=== PATIENT | female | born 1955 | race Caucasian/White ===

== ENCOUNTER → 2016-08-01 | Outpatient (CLI) | payer MEDICARE ==
[~2016-08-01] MED LIST: ASPI-914 PO; ATOR40TA64 PO; GABA-218 PO; HYDR-4074 PO; INSU100I3 SQ; INSU300I SQ; LEVO500T63 PO; LOSA1TAB95 PO; NITR100C4 PO; PANT40TA PO; PRED10TA PO; SERT-88 PO; SUCR1TAB PO; [UNRECOGNIZED DRUG - CODE] PO
[2016-08-01 14:55] LABS: BLOOD, URINE NEGATIVE (NEGATIVE); COLOR,URINE YELLOW (YELLOW); LEUKOCYTE ESTERASE ,URINE NEGATIVE (NEGATIVE); NITRITE,URINE NEGATIVE (NEGATIVE); UROBILINOGEN,URINE 0.2 EU/DL (NORMAL)
[2016-08-01 15:19] LABS: BACTERIA,URINE TRACE (NEGATIVE); RBC,URINE 0-1 /HPF (0-3)
== END ==
LOC: LABN.NHH 14:45
PROVIDERS: ATTEND Family Medicine
DX: N39.0 Urinary tract infection, site not specified (principal)
CPT/HCPCS: 81001

== ENCOUNTER → 2016-08-02 | Outpatient (CLI) | payer MEDICARE ==
[2016-08-02 15:25] LABS: BASOPHILS % (AUTO) 0.2 % (0-2); HCT - HEMATOCRIT 38.1 % (36-46); HGB - HEMOGLOBIN 12.2 GM/DL (12-16); IMMATURE GRANULOCYTE # (AUTO) 0.06 T/MM3 (0.00-0.03); LYMPHOCYTES # (AUTO) 0.5 T/MM3 (1-4.8); LYMPHOCYTES % (AUTO) 9.1 % (23-45); MEAN CORPUSCULAR HGB 28.3 UUG (26-34); MEAN CORPUSCULAR VOLUME 88.4 UM3 (80-100); MEAN PLATELET VOLUME 9.2 UM3 (9.4-12.4); MONOCYTES # (AUTO) 0.3 T/MM3 (0-0.8); MONOCYTES % (AUTO) 5.1 % (0-9.0); NEUTROPHILS % (AUTO) 84.6 % (33-66); RED BLOOD COUNT 4.31 M/MM3 (4.00-5.20); WBC - WHITE BLOOD COUNT 5.9 T/MM3 (4.5-11.0)
[2016-08-02 15:33] LABS: ALBUMIN 3.6 G/DL (3.5-5.0); ALBUMIN/GLOBULIN RATIO 1.3 RATIO (1.1-2.2); ALKALINE PHOSPHATASE 73 U/L (38-126); ALT (SGPT) 80 U/L (9-52); ANION GAP 9 MEQ/L (5-15); AST (SGOT) 101 U/L (14-36); BUN/CREATININE RATIO 25 RATIO (6-26); CALCIUM 9.5 MG/DL (8.4-10.2); CHLORIDE 101 MEQ/L (98-107); CO2 - CARBON DIOXIDE 30 MEQ/L (22-30); CREATININE 0.6 MG/DL (0.7-1.2); GLOMERULAR FILTRATION RATE 102; GLUCOSE 142 MG/DL (65-110); POTASSIUM 3.6 MEQ/L (3.6-5); SODIUM 140 MEQ/L (134-144); TOTAL PROTEIN 6.3 G/DL (6.3-8.2)
== END ==
LOC: LABN.NHH 15:18
PROVIDERS: ATTEND Family Medicine
DX: A41.51 Sepsis due to Escherichia coli [E. coli] (principal)
CPT/HCPCS: 80053; 85025

== ENCOUNTER 2016-08-22 11:55 | Emergency (ER) | payer MEDICARE ==
[~2016-08-22] VITALS: Ht 160 cm; Wt 86.3 kg
--- OUTSIDE RECORDS SUMMARY | 2016-08-22 12:00 | XMS REPORT | Continuity of Care Document ---
Author Author [facility] Organization [facility] Address Unknown Phone Unavailable Support Name Relationship Address Phone KAJAL SANTIAGO MD Caregiver [facility] [address] [place] [address] Unavailable IRINA BORGES II, MD Caregiver [address] [place] [phone] JASWINDER ESCOBEDO MD Caregiver [address] [place] [phone] LYNDA MERCADO Next Of Kin [address] [id number] Insurance Providers Payer Name Policy Number Subscriber Name Relationship Medicare [id number] Jose Alejandro Mercado 19 Self Advance Directives Directive Response Recorded Date/Time Ordered Resuscitation Status Full Code 05/28/14 11:21am Resuscitation Documents on File No 05/28/14 12:11pm Chief Complaint and Reason for Visit Chief Complaint INFLUENZA B, DEHYDRATION, HYPOXEMIA Reason for Visit Influenza B Addisons disease Hypoxemia Dehydration Chest pain Diabetes Hypertension Problems Medical Problems Problem Onset Date Status Knee pain Unknown Active Abrasion of knee Unknown Active Knee pain Unknown Active Influenza B Unknown Active Addisons disease Unknown Active Hypoxemia Unknown Active Dehydration Unknown Active Chest pain Unknown Active Diabetes Unknown Active Hypertension Unknown Active Medications Medication Dose Route Sig Days/Qty Instructions Order Date Discontinued Date Status Insulin Aspart 20-24 Unit SQ BEFORE MEALS 09/21/11 Active Valsartan 320 Mg PO DAILY 09/21/11 11/11/12 Discontinued Hydrochlorothiazide 6.25 Mg PO DAILY 09/21/11 05/21/12 Discontinued Sertraline Hcl 100 Mg PO DAILY 09/21/11 Active Gabapentin 100 Mg PO THREE TIMES A DAY 09/21/11 Active Acetaminophen/Codeine Phosphate PRN 05/09/12 11/11/12 Discontinued Hydrochlorothiazide 12.5 Mg PO DAILY 05/21/12 11/11/12 Discontinued Prednisone 15 Mg PO DAILY 11/11/12 11/11/12 Discontinued Acetaminophen with Codeine 1 Tab PO EVERY 4 HOURS PRN PAIN 05/28/14 Active Losartan/Hydrochlorothiazide DAILY 05/28/14 Active Alprazolam PRN ANXIETY/AIRHUNGER/AGITATION 05/28/14 Active [Atrovastatin] 40 Mg BEDTIME 05/28/14 Active Prednisone 20 Mg PO GIVE WITH BREAKFAST Take 1 tablet, by mouth, once a day with breakfast. 05/28/14 Active Sulfamethoxazole/Trimethoprim 1 Tab PO TWICE A DAY 5 Days 06/04/14 Active Social History Social History Problem Response Recorded Date/Time Chewing Tobacco Status No 08/21/2013 3:22pm Hx Substance Use No 05/28/2014 9:07am Hx Alcohol Use No 05/28/2014 9:07am Has the pt used tobacco in the last 12 months No 05/28/2014 12:13pm Tobacco Usage none 06/03/2014 3:34pm Query Response Start Date Stop Date Smoking Status Former smoker Hospital Discharge Instructions Instructions: Care Instructions: Reason for Hospitalization: INFLUENZA B, DEHYDRATION I was in the hospital because (patient own words): "TEMPERATURE, VOMITING, SINUS INFECTION, MY ADRENAL GLAND IS OFF." Discharge Diet: 2000 calorie diabetic diet Discharge Activity: As tolerated; take it easy and avoid excessive cold exposure for one week Follow Up Appointments: F/U with Dr. Borges in 1-2 weeks F/U with Dr. Oneill in 3-4 weeks Condition at time of discharge: Good Fair Good Notify Physician If: You have increased discomfort at incision site. Redness Hot or hardened area Temperature over 101 degress Fahrenheit Increased or foul smelling drainage Chills IF BLEEDING, PAIN OR PROGRESSIVE SWELLING OCCURS TO THE SITE, APPLY PRESSURE AND CALL 911. Condition at time of discharge: Fair Condition at time of discharge: Good Plan of Care Discharge Date 06/04/14 1:00pm Disposition 01 DISCHARGED HOME, SELF-CARE Instructions/Education Provided DI for Influenza -- Adult Prescriptions See Medications Section Functional Status Query Response Date Recorded Physical Hygiene Self June 04, 2014 12:26pm Disabilities None June 04, 2014 12:26pm Devices Used None June 04, 2014 12:26pm Dressing Self June 04, 2014 12:26pm Ambulation Self June 04, 2014 12:26pm Diet Self June 04, 2014 12:26pm Mental Status Alert Oriented June 04, 2014 12:26pm Disabilities None June 04, 2014 12:26pm Devices Used None June 04, 2014 12:26pm Physical Hygiene Self June 04, 2014 12:26pm Dressing Self June 04, 2014 12:26pm Ambulation Self June 04, 2014 12:26pm Diet Self June 04, 2014 12:26pm Allergies, Adverse Reactions, Alerts Allergen Type Severity Reaction Status Last Updated meperidine HCl Allergy Severe Active 08/21/13 amoxicillin trihydrate Allergy Severe Active 08/21/13 potassium clavulanate Allergy Severe Active 08/21/13 Cephalexin Allergy Intermediate RASH Active 05/28/14 Immunizations Name Given Type Hx Influenza Vaccination No Historical Hx Pneumococcal Vaccination No Historical Hx Tetanus, Diptheria, Pertussis No Historical Hx Influenza Vaccination No Historical Hx Tetanus Diptheria No Historical Hx Tetanus, Diptheria, Pertussis No Historical Hx Tetanus Toxoid Vaccination No Historical Vital Signs Acute Vital Signs Vital Response Date/Time Temperature (Fahrenheit) 97.9 deg F (96.8 - 99.1) Temperature (Calculated Celsius) 36.62644 degrees C (36.0 - 37.3) Temperature Source Temporal Pulse Rate (adult) 77 bpm (60 - 100) Respiratory Rate 16 breaths/min (10 - 20) O2 Sat by Pulse Oximetry 94 % (90 - 100) Oxygen Delivery Method Room Air Blood Pressure 135/70 mm Hg Blood Pressure Source Automatic Cuff Height 5 ft 3 in Weight 254 lb Body Mass Index 45.0 kg/m^2 Results Test Source Date Result Interp. Ref. Range Comments Alanine Aminotransferase (ALT/SGPT) June 03, 2014 4:13am 44 U/L N 9- 52 Albumin June 03, 2014 4:13am 4.1 G/DL N 3.5-5.0 Albumin/Globulin Ratio June 03, 2014 4:13am 1.3 RATIO N 1.1-2.2 Alkaline Phosphatase June 03, 2014 4:13am 86 U/L N 38-126 Amylase Level September 21, 2011 9:00pm 54 U/L N 30-110 Anion Gap June 04, 2014 4:49am 6 MEQ/L N 5-15 Aspartate Amino Transf (AST/SGOT) June 03, 2014 4:13am 41 U/L H 14- 36 BUN/Creatinine Ratio June 04, 2014 4:49am 25 RATIO N 6-26 Band Neutrophils # September 21, 2011 9:00pm 0.4 T/MM3 - Band Neutrophils % September 21, 2011 9:00pm 6.0 % N 0-6 Basophils # (Auto) June 04, 2014 4:49am 0.0 T/MM3 N 0-0.2 Basophils # (Manual) September 21, 2011 9:00pm 0.1 T/MM3 N 0-0.2 Basophils % (Manual) September 21, 2011 9:00pm 1.0 % N 0-2 Basophils (%) (Auto) June 04, 2014 4:49am 0.3 % N 0-2 Blood Urea Nitrogen June 04, 2014 4:49am 20.0 MG/DL H 7-17 C-Reactive Protein May 21, 2012 6:26am 15.0 MG/L H 0-9 Calcium Level June 04, 2014 4:49am 9.0 MG/DL N 8.4-10.2 Calculated Osmolality June 04, 2014 4:49am 264 MOSM/KG N 261-280 Carbon Dioxide Level June 04, 2014 4:49am 35 MEQ/L H 22-30 Chloride Level June 04, 2014 4:49am 94 MEQ/L L 98-107 Conjugated Bilirubin May 09, 2012 10:56pm 0.00 MG/DL N 0.00-0.30 Creatinine June 04, 2014 4:49am 0.8 MG/DL DN 0.7-1.2 D-Dimer November 11, 2012 12:00am 289 NG/ML H 0-230 <224 NG/ML=PRESUMPTIVE NEGATIVE FOR PE OR DVT>224 NG/ML=ADDITIONAL EVALUATION FOR PE OR DVT RECOMMENDED Eosinophils # (Auto) June 04, 2014 4:49am 0.1 T/MM3 N 0-0.5 Eosinophils (%) (Auto) June 04, 2014 4:49am 1.0 % N 0-4 Erythrocyte Sedimentation Rate May 21, 2012 6:26am 43 MM/HR H 0-20 Globulin June 03, 2014 4:13am 3.1 G/DL N 2.4-3.6 Glucose Level June 04, 2014 4:49am 122 MG/DL H 65-110 Hematocrit June 04, 2014 4:49am 38.6 % N 36-46 Hemoglobin June 04, 2014 4:49am 12.5 GM/DL N 12-16 Influenza Type A Antigen May 28, 2014 9:36am Negative - Negative for Flu A protein antigen. Assay sensitivity is90%. Influenza Type B Antigen May 28, 2014 9:36am Positive - Lipase September 21, 2011 9:00pm 49 U/L N 23-300 Lymphocytes # (Auto) June 04, 2014 4:49am 1.7 T/MM3 N 1-4.8 Lymphocytes # (Manual) September 21, 2011 9:00pm 0.3 T/MM3 L 1-4.8 Lymphocytes % (Manual) September 21, 2011 9:00pm 4.0 % L 23-45 Lymphocytes (%) (Auto) June 04, 2014 4:49am 29.0 % N 23-45 Mean Corpuscular Hemoglobin June 04, 2014 4:49am 30.1 UUG N 26-34 Mean Corpuscular Hemoglobin Concent June 04, 2014 4:49am 32.4 GM/DL N 31-37 Mean Corpuscular Volume June 04, 2014 4:49am 93.0 UM3 N 80-100 Mean Platelet Volume June 04, 2014 4:49am 8.8 UM3 L 9.4-12.4 Monocytes # (Auto) June 04, 2014 4:49am 0.6 T/MM3 N 0-0.8 Monocytes # (Manual) September 21, 2011 9:00pm 0.2 T/MM3 N 0-0.8 Monocytes % (Manual) September 21, 2011 9:00pm 3.0 % N 0-9.0 Monocytes (%) (Auto) June 04, 2014 4:49am 11.2 % H 0-9.0 Neutrophils # (Auto) June 04, 2014 4:49am 3.3 T/MM3 N 1.8-7.7 Neutrophils # (Manual) September 21, 2011 9:00pm 6.0 T/MM3 N 1.8-7.7 Neutrophils % (Manual) September 21, 2011 9:00pm 86.0 % H 33-66 Neutrophils (%) (Auto) June 04, 2014 4:49am 56.9 % N 33-66 Platelet Count June 04, 2014 4:49am 257 T/MM3 N 130-400 Potassium Level June 04, 2014 4:49am 3.8 MEQ/L N 3.6-5 Prothromb Time International Ratio November 11, 2012 12:45pm < 0.90 0.79- 1.23 THERAPUTIC RANGE=2.00-3.00 FOR ANTI-THROMBOSIS THERAPUTIC RANGE=2.50- 3.50 FOR IMPLANTED VALVE RDW Standard Deviation June 04, 2014 4:49am 44.5 FL N 36.9-50.2 Red Blood Count June 04, 2014 4:49am 4.15 M/MM3 N 4.00-5.20 Sodium Level June 04, 2014 4:49am 135 MEQ/L N 134-144 Total Bilirubin June 03, 2014 4:13am 1.10 MG/DL N 0.20-1.30 Total Protein June 03, 2014 4:13am 7.2 G/DL N 6.3-8.2 Troponin I June 03, 2014 10:18pm < 0.012 ng/ml 0-0.12 Unconjugated Bilirubin May 09, 2012 10:56pm 0.20 MG/DL N 0.00-1.10 Urine Bacteria May 31, 2014 11:40am None seen - Has specimen been collected/obtained? Y Urine Bilirubin May 31, 2014 11:40am Negative - Has specimen been collected/obtained? Y Urine Blood May 31, 2014 11:40am Trace-lysed H - Has specimen been collected/obtained? Y Urine Collection Type May 31, 2014 11:40am Cleancatch-midstream - Has specimen been collected/obtained? Y Urine Color May 31, 2014 11:40am Yellow - Has specimen been collected/obtained? Y Urine Culture Indicated May 28, 2014 10:00am Cult reflexed &setup - Has specimen been collected/obtained? Y Urine Glucose (UA) May 31, 2014 11:40am Negative - Has specimen been collected/obtained? Y Urine Ketones May 31, 2014 11:40am Negative - Has specimen been collected/obtained? Y Urine Leukocyte Esterase May 31, 2014 11:40am 1+ H - Has specimen been collected/obtained? Y Urine Nitrite May 31, 2014 11:40am Negative - Has specimen been collected/obtained? Y Urine Protein May 31, 2014 11:40am Negative - Has specimen been collected/obtained? Y Urine RBC May 31, 2014 11:40am 3-5 /HPF H - Has specimen been collected/obtained? Y Urine Specific [place] May 31, 2014 11:40am <=1.005 L - Has specimen been collected/obtained? Y Urine Squamous Epithelial Cells May 31, 2014 11:40am 0-5 - Has specimen been collected/obtained? Y Urine Turbidity May 31, 2014 11:40am Clear - Has specimen been collected/obtained? Y Urine Urobilinogen May 31, 2014 11:40am 0.2 EU/DL - Has specimen been collected/obtained? Y Urine WBC May 31, 2014 11:40am 5-10 /HPF H - Has specimen been collected/obtained? Y Urine WBC Clumps May 28, 2014 10:00am Few - Has specimen been collected/obtained? Y Urine pH May 31, 2014 11:40am 7.0 - Has specimen been collected/ obtained? Y Vancomycin Level Trough June 03, 2012 8:15am 17.97 UG/ML N 15-20 Venous Blood Base Excess May 28, 2014 9:36am 8.8 MMOL/L H -2.0-2.0 Venous Blood HCO3 May 28, 2014 9:36am 35 MEQ/L H 22-26 Venous Blood Oxygen Saturation May 28, 2014 9:36am 49.0 % - Venous Blood Partial Pressure CO2 May 28, 2014 9:36am 54 MMHG H 40- 52 Venous Blood Partial Pressure O2 May 28, 2014 9:36am 26 MMHG L 40- 52 Venous Blood Total Carbon Dioxide May 28, 2014 9:36am 36.7 MEQ/L - Venous Blood pH May 28, 2014 9:36am 7.420 H 7.31-7.41 White Blood Count June 04, 2014 4:49am 5.7 T/MM3 N 4.5-11.0 Chemistry Specimen Hemolysis June 04, 2014 4:49am < 15 0-25 0-25: No Hemolysis.26-70: Slight Hemolysis - can falsely elevate K and Urine Protein. 71-285: Moderate Hemolysis - can falsely elevate K, Troponin I, CA 19-9, PTH, CSF GLucose, and Urine Protein, and can falsely decrease Phenytoin. 286-999: Gross Hemolysis - can falsely elevate K, Troponin I, CA 19-9, PTH, CSF Glucose, and Urine Protine, and can falsely decrease Phenytoin. Recommend specimen recollection. Oxygen Delivery Method (LAB) May 28, 2014 9:36am Room air - Glucometer June 04, 2014 10:15am 153 mg/dL H 65-110 Lab Scanned Report May 04, 2012 11:37am LAB TEST FORM REQUEST [id number] - Turbidity June 04, 2014 4:49am < 20 0-20 Glomerular Filtration Rate Calc June 04, 2014 4:49am 74 - Immature Granulocyte # (Auto) June 04, 2014 4:49am 0.09 T/MM3 H 0.00- 0.03 Immature Granulocyte % (Auto) June 04, 2014 4:49am 1.6 % H 0.0-0.5 Venous Blood Lactate May 28, 2014 9:36am 2.7 MMOL/L H 0.6-2.2 Procalcitonin May 28, 2014 9:36am 0.27 NG/ML - PCT </=0.5 ng/mL - sepsis not likely;PCT >0.5 and </=2 ng/mL - sepsis possible; PCT >2 ng/mL - sepsis likely; PCT >/=10 ng/mL - systemic inflammatory response - sepsis or septic shock highly indicated. Icterus Index June 04, 2014 4:49am < 2 0-7 C. difficile Toxin B Gene (PCR) September 23, 2011 4:30pm Negative - If Toxin A is clinically indicated, treat accordingly. Blood Culture Peripheral Blood May 28, 2014 9:40am NO GROWTH AFTER 5 DAYS Gram Stain Abscess May 09, 2012 9:55pm Urine Culture Urine, Clean Catch-Midstream May 28, 2014 11:31am Kleb Pneumoniae Ssp Pneumoniae Gram Stain Foot, Non-Surgical Site-Right June 16, 2012 9:53am Name: JOSE ALEJANDRO MERCADO Unit #: [id number] : [id number] Sex: F Loc / Svc: MED DOS: 05/28/14 Signed Report #: [id number] DIAGNOSTIC IMAGING REPORT TYPE OF EXAM: CHEST 1 VIEW Dictated By: JOANNA GARRIDO MD INDICATION: ITS.REASON: hypoxia CHEST 1 VIEW: Comparison: May 28, 2014 Findings: The lungs are mildly hypoinflated, but grossly clear. No new airspace disease. No effusion or pneumothorax. Cardiomediastinal contours are stable. Impression: Mild hypoinflation without pneumonia or congestive failure. . Procedures No known history of procedures. Encounters Encounter Location Date/Time Discharged Inpatient [facility] 05/28/14 11:21am Recent Diagnosis Influenza B Addisons disease Hypoxemia Dehydration Chest pain Diabetes Hypertension
--- OUTSIDE RECORDS SUMMARY | 2016-08-22 12:00 | XMS REPORT | Continuity of Care Document ---
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 04/08/2013 Derek Mayer DO Final V72.84 PREOP EXAMINATION NOS 04/12/2013 Derek Mayer DO Final 250.00 DM2/NOS UNCOMP NSU 04/12/2013 Derek Mayer DO Final 255.41 GLUCOCORTICOID DEF 04/12/2013 Derek Mayer DO Final 272.4 HYPERLIPIDEMIA NEC NOS 04/12/2013 Derek Mayer DO Final 278.00 OBESITY NOS 04/12/2013 Derek Mayer DO Final 285.1 ACUTE POSTHEMOR ANEMIA 04/12/2013 Derek Mayer DO Final 300.00 ANXIETY STATE NOS 04/12/2013 Derek Mayer DO Final 311 DEPRESSIVE DISORDER NEC 04/12/2013 Derek Mayer DO Final 401.9 HYPERTENSION NOS 04/12/2013 Derek Mayer DO Final 458.8 HYPOTENSION NEC 04/12/2013 Derek Mayer DO Final 734 FLAT FOOT 04/12/2013 Derek Mayer DO Final 736.72 ACQ EQUINUS DEFORMITY 04/12/2013 Derek Mayer DO Final V85.41 BMI 40.0-44.9 ADULT Procedures Code Description Performed By Performed On ANES INJECT PERIPH NERVE Derek Mayer DO 04/12/2013 81.11 ANKLE FUSION Derek Mayer DO 04/12/2013 81.13 SUBTALAR FUSION Derek Mayer DO 04/12/2013 81.14 MIDTARSAL FUSION Derek Mayer DO 04/12/2013 83.13 OTHER TENOTOMY Derek Mayer DO 04/12/2013 83.85 CHANGE IN M/T LENGTH NEC Derek Mayer DO 04/12/2013 84.52 INSERT RECOMBINANT BONE Derek Mayer DO 04/12/2013 Results Encounters ACCT No. Visit Date/Time Discharge Status Pt. Type Provider Facility Loc./Unit Complaint [id number] 04/12/2013 05:22:00 2012 17:30:00 DIS Inpatient Derek Mayer DO [facility] [address] [id number] 04/08/2013 08:28:00 2012 23:59:59 CLS Outpatient Derek Mayer DO [facility]
--- OUTSIDE RECORDS SUMMARY | 2016-08-22 12:00 | XMS REPORT | Continuity of Care Document ---
Author Author DIANN [facility] Organization [facility] Address Unknown Phone Unavailable Support Name Relationship Address Phone ERNST APPIAH MD Caregiver [address] [place] [address] Unavailable IRINA BORGES II, MD Caregiver [address] [place] [address] Unavailable IRINA BORGES II, MD Caregiver [address] [place] [address] Unavailable JAS RIVAS MD Caregiver [address] [place] [address] [place] [address] Unavailable LYNDA MERCADO Next Of Kin [address] [place] [address] Insurance Providers Guarantor Jose Alejandro Mercado Address [address] [place] [address] Email [email or web address] Payer Medicare Policy Number [id number] Subscriber's Name Jose Alejandro Mercado Relationship 18 Self Effective Date 09 Advance Directives Directive Response Recorded Date/Time Advanced Directives Type None 04/27/16 8:40am Ordered Resuscitation Status Full Code, unverified 04/27/16 12:42pm Resuscitation Documents on File No 04/27/16 1:29pm DPOA for Healthcare Only No 04/27/16 2:10pm Living Will No 04/27/16 1:29pm Problems Active Problems Medical Problem Onset Date Status Abrasion of knee Unknown Acute Addisonian crisis Unknown Resolved Addisons disease Unknown Chronic Allergic rhinitis Unknown Chronic Altered mental status Unknown Anemia Unknown Anxiety Unknown Asthma Unknown Chronic Back pain Unknown Cellulitis of left foot Unknown Chest pain Unknown Acute Dehydration Unknown Acute Depression Unknown Chronic Diabetes Unknown Chronic Duodenal ulcer Unknown Fibromyalgia Unknown Chronic Foot ulcer Unknown GERD (gastroesophageal reflux disease) Unknown Chronic Hyperlipidemia Unknown Chronic Hypertension Unknown Chronic Hypertension, accelerated Unknown Acute Hypokalemia Unknown Hypoxemia Unknown Acute Influenza B Unknown Acute Insulin dependent diabetes mellitus Unknown Knee pain Unknown Acute Knee pain Unknown Acute Leg edema, right Unknown Acute Melanoma Unknown Nausea Unknown Resolved Neuropathy Unknown Chronic Obesity Unknown Chronic Obesity (BMI 35.0-39.9 without comorbidity) Unknown Osteoarthritis Unknown Pain of right calf Unknown Acute Popliteal cyst Unknown Acute ST elevation (STEMI) myocardial infarction Unknown Sepsis Unknown Vestibular neuronitis Unknown Acute Past Problems Medical Problem Onset Date Acute encephalopathy Unknown Sepsis Unknown UTI (urinary tract infection) Unknown UTI (urinary tract infection) Unknown Medications Current Home Medications Medication Dose Units Route Directions Days Qty Instructions Start Date Alprazolam 0.25 Mg Tab.rapdis 0.25 Mg Oral Twice A Day as needed for Anxiety 05/28/14 Aspirin (Low Dose Aspirin Ec) 81 Mg Tablet.dr 1 Tab Oral Daily for Cad 90 Days 90 Tablet 04/29/16 Atorvastatin Calcium 40 Mg Tablet 40 Mg Oral Bedtime 04/27/16 Gabapentin 100 Mg Capsule 100 Mg Oral Four Times Daily 09/21/11 Hydrocodone/Apap 7.5/325 Mg ([place] 7.5-325 Tablet) 7.5-325 Tablet 1 Tab Oral Bedtime 1 Tablet 03/04/16 Insulin Aspart (Novolog Flexpen) 1 Unit Pen 12 Unit Sub-Q Three Times Daily With Meals 04/27/16 Insulin Glargine,Hum.rec.anlog (Toujeo Solostar) 300 Unit/1 Ml Insuln.pen 8 Unit Sub-Q Bedtime 03/04/16 Levofloxacin (Levaquin) 500 Mg Tablet 500 Mg Oral Daily for Uti 5 Days 5 Bottle 04/29/16 Losartan/Hydrochlorothiazide (Losartan-Hctz 50-12.5 Mg Tab) 1 Each Tablet 1 Tab Oral Daily 11/05/14 Nitrofurantoin Monohyd/M-Cryst (Macrobid 100 Mg Capsule) 100 Mg Capsule 1 Cap Oral Give With Breakfast 30 Days 30 Capsule Take on capsule, by mouth, daily with breakfast. 04/29/16 Pantoprazole Sodium (Protonix) 40 Mg Tablet.dr 40 Mg Oral Before Breakfast 04/27/16 Prednisone 10 Mg Tablet 20 Mg Oral Daily 04/27/16 Sertraline Hcl (Zoloft) 100 Mg Tablet 150 Mg Oral Daily 09/21/11 Sucralfate 1 Gm Tablet 1 Gm Oral Before Meals And At Bedtime 03/03 Past Home Medications Medication Directions Ordered Status Acetaminophen/Codeine Phosphate (Tylenol #3) 1 Tab Tablet, as needed Discontinued Hydrochlorothiazide 25 Mg Tablet, 12.5 Mg Oral Daily 05/21/12 Discontinued Hydrochlorothiazide 12.5 Mg Capsule, 6.25 Mg Oral Daily 09/21/11 Discontinued Insulin Aspart (Novolog) 100 Unit/Ml Inj, 12 Unit Sub-Q Three Times A Day Discontinued Losartan/Hydrochlorothiazide (Losartan-Hctz 50-12.5 Mg Tab) 1 Each Tablet, Daily 05/28/14 Discontinued Prednisone 20 Mg Tablet, 20 Mg Oral Give With Breakfast 03/04/16 Discontinued Prednisone 10 Mg Tablet, 15 Mg Oral Give With Breakfast 05/28/14 Discontinued Prednisone 5 Mg Tablet, 15 Mg Oral Daily 11/11/12 Discontinued Sulfamethoxazole/Trimethoprim (Sulfamethoxazole-Tmp Ds Tablet) 1 Tab Tablet, 1 Tab Oral Twice A Day 06/04/14 Discontinued Valsartan (Diovan) 320 Mg Tablet, 320 Mg Oral Daily 09/21/11 Discontinued Social History Social History Problem Response Recorded Date/Time Onset Date Status Reason for Hospitalization UTI 04/29/2016 1:24pm Not Applicable Not Applicable Chewing Tobacco Status No 08/21/2013 3:22pm Not Applicable Not Applicable Hx Substance Use No 04/27/2016 8:47am Not Applicable Not Applicable Hx Alcohol Use No 04/27/2016 8:47am Not Applicable Not Applicable Has the pt used tobacco in the last 12 months No 04/27/2016 1:30pm Not Applicable Not Applicable Tobacco Usage none 06/03/2014 3:34pm Not Applicable Not Applicable Query Response Start Date Stop Date Smoking Status Never smoker Hospital Discharge Instructions Instructions: Care Instructions: Reason for Hospitalization: UTI I was in the hospital because (patient own words): I HAD AN ADDISONS STORM AGAIN Discharge Diet: 1999 diabetic diet Discharge Activity: as tolerated Follow Up Appointments: with Dr Borges on 05/03/16 APPOINTMENT ON 05/03 1:45. Pending Lab / Results: No Pending Lab Patient Instructions: NA Wound/Incision Care: watch for pressure sores on feet Durable Medical Equipment: NA Pain Management/Treatment: take current med Expected Signs/Symptoms: fatigue Notify Physician If: fever confusion During Business Hours:: Please call the physician's office at [phone] [facility] After Business Hours:: Please call [phone] and have the steel shot header operator page the physician. Condition at time of discharge: Good Plan of Care Discharge Date 04/29/16 2:00pm Disposition 01 DISCHARGED HOME, SELF-CARE Instructions/Education Provided DI for Urinary Tract Infection (UTI) Prescriptions See Medication Section Care Plan and Goals See Discharge Instructions Section Functional Status Query Response Date Recorded Mobility Status Ambulatory w/assist April 29, 2016 1:24pm Assistive Devices Standard Walker April 29, 2016 1:24pm Activity Limitations Weakness April 29, 2016 1:24pm Feeding Ability Independent April 29, 2016 1:24pm Toileting Ability Independent April 29, 2016 1:24pm Grooming Ability Independent April 29, 2016 1:24pm Dressing Ability Independent April 29, 2016 1:24pm Driving Ability Dependent April 29, 2016 1:24pm Housework Ability Assist April 29, 2016 1:24pm Meal Preparation Ability Assist April 29, 2016 1:24pm Stair Climbing Ability Assist April 29, 2016 1:24pm Ability to complete ADL's impeded by No change April 29, 2016 1:24pm Cognitive/Perceptual Impairments Impaired vision April 29, 2016 1:24pm Visual Assistive Devices Glasses April 27, 2016 1:21pm Preferred Method of Learning Reading Demonstration Hands on April 27, 2016 1:21pm Allergies, Adverse Reactions, Alerts Allergen Type Severity Reaction Status Last Updated meperidine HCl Allergy Severe Active 04/27/16 amoxicillin trihydrate Allergy Severe Active 04/27/16 potassium clavulanate Allergy Severe Active 04/27/16 Cephalexin Allergy Intermediate RASH Active 04/27/16 Promethazine Allergy Unknown Active 04/27/16 Immunizations Query Response on File Recorded Date/Time Hx Influenza Vaccination No 04/27/16 1:30pm Hx Pneumococcal Vaccination No 04/27/16 1:30pm Hx Tetanus, Diptheria, Pertussis No 11/19/14 1:41pm Hx Influenza Vaccination No 04/27/16 1:30pm Hx Tetanus Diptheria No 11/19/14 1:41pm Hx Tetanus, Diptheria, Pertussis No 11/19/14 1:41pm Hx Tetanus Toxoid Vaccination No 08/21/13 5:07pm Influenza Vaccine Hx NONE 04/27/16 8:47am Vital Signs Acute Vital Signs Vital Response Date/Time Temperature (Fahrenheit) 97.1 deg F (96.8 - 99.1) 04/29/2016 9:36am Temperature (Calculated Celsius) 36.80136 degrees C (36.0 - 37.3) 04/29/2016 9:36am Temperature Source Oral 03/11/2016 4:00pm Pulse Rate (adult) 85 bpm (60 - 100) 04/29/2016 9:36am Respiratory Rate 18 breaths/min (10 - 20) 04/29/2016 9:36am O2 Sat by Pulse Oximetry 91 % (90 - 100) 04/29/2016 9:36am Oxygen Delivery Method Nasal Cannula 04/27/2016 9:02pm Oxygen Delivery Method Room Air 04/29/2016 9:36am Oxygen Flow Rate 2.00 L/min 04/27/2016 9:02pm Blood Pressure 144/72 mm Hg 04/29/2016 9:36am Blood Pressure Source Automatic Cuff 04/29/2016 9:36am Height (Feet) 5 feet 04/28/2016 2:51pm Height (Inches) 3.00 inches 04/28/2016 2:51pm Weight (Kilograms) 104.300 kg 04/29/2016 8:00am Body Mass Index (BMI) 41.4 04/27/2016 1:24pm Results Laboratory Results Test Name Result Units Flags Reference Collection Date/Time Result Date/ Time Comments Neutrophils % (Manual) 65.0 % 33-66 03/14/2016 4:13am 03/14/2016 6: 49am Band Neutrophils % 4.0 % 0-6 03/13/2016 4:11am 03/13/2016 5:55am Lymphocytes % (Manual) 25.0 % 23-45 03/14/2016 4:13am 03/14/2016 6: 49am Monocytes % (Manual) 6.0 % 0-9.0 03/14/2016 4:13am 03/14/2016 6:49am Eosinophils % (Manual) 3.0 % 0-4 03/14/2016 4:13am 03/14/2016 6:49am Metamyelocytes % 1.0 % H 0-0 03/11/2016 6:04am 03/11/2016 7:07am Myelocytes % 1.0 % H 0-0 03/14/2016 4:13am 03/14/2016 6:49am Band Neutrophils # 0.2 T/MM3 03/13/2016 4:11am 03/13/2016 5:55am Absolute Neutrophils (Manual) 3.9 T/MM3 1.8-7.7 03/14/2016 4:13am 03/14 6:49am Lymphocytes # (Manual) 1.5 T/MM3 1-4.8 03/14/2016 4:13am 03/14/2016 6: 49am Monocytes # (Manual) 0.4 T/MM3 0-0.8 03/14/2016 4:1303/14/2016 6: 49am Eosinophils # (Manual) 0.2 T/MM3 0-0.5 03/14/2016 4:13am 03/14/2016 6: 49am Metamyelocytes # 0.1 T/MM3 03/11/2016 6:04am 03/11/2016 7:07am Myelocytes # 0.1 T/MM3 03/14/2016 4:13am 03/14/2016 6:49am Red Cell Morphology Comment ABNORMAL 03/14/2016 4:1303/14/2016 6 :49am Anisocytosis 1+ 03/14/2016 4:13am 03/14/2016 6:49am Poikilocytosis 1+ 03/14/2016 4:1303/14/2016 6:49am Lipase 15 U/L L 23-300 03/05/2016 8:30am 03/05/2016 1:57pm Ammonia 19 UMOL/L 9-33 03/07/2016 2:22pm 03/07/2016 2:46pm Gentamicin Level Trough 0.9 UG/ML 0-2 03/09/2016 12:56pm 03/09/2016 1: 32pm Arterial Blood pH 7.370 7.350-7.450 03/07/2016 1:05pm 03/07/2016 1: 15pm Arterial Blood Partial Pressure CO2 43 MMHG 34-45 03/07/2016 1:05pm 1:15pm Arterial Blood pO2 at Patient Temp 61 MMHG L 80-100 03/07/2016 1:05pm 1:15pm Arterial Blood HCO3 25 MEQ/L 22-26 03/07/2016 1:05pm 03/07/2016 1:15pm Arterial Blood Total CO2 26.2 MEQ/L 23-27 03/07/2016 1:05pm 03/07/2016 1:15pm Arterial Blood Base Excess -0.5 MMOL/L -2.0-2.0 03/07/2016 1:05pm 03/07 1:15pm Arterial Blood Oxygen Saturation 90.0 % L 95.0-98.0 03/07/2016 1:05pm 1:15pm Oxygen Delivery Method (LAB) ROOM AIR 03/07/2016 1:05pm 03/07/2016 1:15pm Venous Blood pH 7.390 7.31-7.41 03/04/2016 8:33am 03/04/2016 8:45am Venous Blood Partial Pressure CO2 50 MMHG 40-52 03/04/2016 8:33am 03/04 8:45am Venous Blood Partial Pressure O2 44 MMHG 40-52 03/04/2016 8:33am 2015 8:45am Venous Blood HCO3 30 MEQ/L H 22-26 03/04/2016 8:33am 03/04/2016 8:45am Venous Blood Total Carbon Dioxide 31.8 MEQ/L 03/04/2016 8:33am 2015 8:45am Venous Blood Base Excess 4.3 MMOL/L H -2.0-2.0 03/04/2016 8:33am 2015 8:45am Venous Blood Oxygen Saturation 79.0 % 03/04/2016 8:33am 03/04/2016 8: 45am Blood Gas Oxygen Liter Flow 2 03/04/2016 8:33am 03/04/2016 8:45am Stool Occult Blood POSITIVE A 03/10/2016 1:07am 03/10/2016 1:47am Stool C. difficile Toxin B Gene PCR NEGATIVE NEGATIVE 03/09/2016 10: 59am 03/09/2016 12:05pm If Toxin A is clinically indicated, treat accordingly. Urine Squamous Epithelial Cells 0-5 03/04/2016 9:01am 03/04/2016 9: 32am White Blood Count 5.6 T/MM3 4.5-11.0 04/28/2016 7:08am 04/28/2016 7: 16am Red Blood Count 3.86 M/MM3 L 4.00-5.20 04/28/2016 7:08am 04/28/2016 7: 16am Hemoglobin 11.4 GM/DL L 12-16 04/28/2016 7:08am 04/28/2016 7:16am Hematocrit 34.9 % L 36-46 04/28/2016 7:0804/28/2016 7:16am Mean Corpuscular Volume 90.4 UM3 80-100 04/28/2016 7:0804/28/2016 7: 16am Mean Corpuscular Hemoglobin 29.5 UUG 26-34 04/28/2016 7:082015 7:16am Mean Corpuscular Hemoglobin Concent 32.7 GM/DL 31-37 04/28/2016 7:0804/28/2016 7:16am RDW Standard Deviation 43.4 FL 36.9-50.2 04/28/2016 7:0804/28/2016 7 :16am Platelet Count 152 T/MM3 130-400 04/28/2016 7:0804/28/2016 7:16am Mean Platelet Volume 8.7 UM3 L 9.4-12.4 04/28/2016 7:0804/28/2016 7: 16am Neutrophils (%) (Auto) 75.9 % H 33-66 04/28/2016 7:04/28/2016 7: 16am Lymphocytes (%) (Auto) 15.0 % L 23-45 04/28/2016 7:0804/28/2016 7: 16am Monocytes (%) (Auto) 7.7 % 0-9.0 04/28/2016 7:04/28/2016 7:16am Eosinophils (%) (Auto) 0.5 % 0-4 04/28/2016 7:0804/28/2016 7:16am Basophils (%) (Auto) 0.2 % 0-2 04/28/2016 7:04/28/2016 7:16am Immature Granulocyte % (Auto) 0.7 % H 0.0-0.5 04/28/2016 7:082015 7:16am Absolute Neutrophils (auto) 4.3 T/MM3 1.8-7.7 04/28/2016 7:082015 7:16am Absolute Lymphocytes (auto) 0.8 T/MM3 L 1-4.8 04/28/2016 7:08am 2015 7:16am Absolute Monocytes (auto) 0.4 T/MM3 0-0.8 04/28/2016 7:0804/28/2016 7:16am Absolute Eosinophils (auto) 0.0 T/MM3 0-0.5 04/28/2016 7:082015 7:16am Absolute Basophils (auto) 0.0 T/MM3 0-0.2 04/28/2016 7:0804/28/2016 7:16am Absolute Immature Granulocyte (auto 0.04 T/MM3 H 0.00-0.03 04/28/2016 7: 0804/28/2016 7:16am Icterus Index < 2 0-7 04/28/2016 7:0804/28/2016 7:29am Chemistry Specimen Hemolysis < 15 0-25 04/28/2016 2:58pm 04/28/2016 3 :30pm 0-25: Specimen Exhibited No Hemolysis. Turbidity < 20 0-20 04/28/2016 7:04/28/2016 7:29am Sodium Level 143 MEQ/L 134-144 04/28/2016 7:0804/28/2016 7:29am Potassium Level 3.5 MEQ/L L 3.6-5 04/28/2016 7:0804/28/2016 7:29am Chloride Level 103 MEQ/L D 98-107 04/28/2016 7:04/28/2016 8:37am Delta noted. MM Carbon Dioxide Level 27 MEQ/L 22-30 04/28/2016 7:04/28/2016 7: 29am Anion Gap 13 MEQ/L 5-15 04/28/2016 7:04/28/2016 7:29am Blood Urea Nitrogen 8.0 MG/DL 7-17 04/28/2016 7:0804/28/2016 7:29am Creatinine 0.5 MG/DL L 0.7-1.2 04/28/2016 7:0804/28/2016 7:29am BUN/Creatinine Ratio 16 RATIO 6-26 04/28/2016 7:0804/28/2016 7:29am Glomerular Filtration Rate Calc 126 04/28/2016 7:0804/28/2016 7: 29am Glucose Level 102 MG/DL 65-110 04/28/2016 7:0804/28/2016 7:29am Calculated Osmolality 273 MOSM/KG 261-280 04/28/2016 7:0804/28/2016 7:29am Calcium Level 7.9 MG/DL D L 8.4-10.2 04/28/2016 7:04/28/2016 8:37am Delta noted. MM Total Bilirubin 0.90 MG/DL 0.20-1.30 04/28/2016 7:0804/28/2016 7: 29am Alkaline Phosphatase 67 U/L 38-126 04/28/2016 7:04/28/2016 7:29am Total Protein 5.9 G/DL L 6.3-8.2 04/28/2016 7:04/28/2016 7:29am Albumin 3.2 G/DL L 3.5-5.0 04/28/2016 7:04/28/2016 7:29am Globulin 2.7 G/DL 2.4-3.6 04/28/2016 7:04/28/2016 7:29am Albumin/Globulin Ratio 1.2 RATIO 1.1-2.2 04/28/2016 7:04/28/2016 7 :29am Aspartate Amino Transf (AST/SGOT) 62 U/L H 14-36 04/28/2016 7:04/28 7:29am Alanine Aminotransferase (ALT/SGPT) 53 U/L H 9-52 04/28/2016 7:03/2016 7:29am Troponin I < 0.012 ng/ml 0-0.12 04/28/2016 2:58pm 04/28/2016 3:30pm Troponin values with a difference of 55% increase from orginal troponin value represent a true biological DELTA value. (%increase Calc=Orginal Troponin value, divided by subsequent Troponin value, multiplied by 100) Plasma Lactate 0.6 MMOL/L 0.6-2.2 04/27/2016 9:18pm 04/27/2016 9:38pm Procalcitonin 0.97 NG/ML 04/27/2016 9:18pm 04/27/2016 9:55pm PCT </= 0.5 ng/mL - sepsis not likely; PCT >0.5 and </=2 ng/mL - sepsis possible; PCT >2 ng/mL - sepsis likely; PCT >/=10 ng/mL - systemic inflammatory response - sepsis or septic shock highly indicated. Thyroid Stimulating Hormone (TSH) 2.22 MIU/L 0.47-4.68 04/27/2016 9: 32am 04/27/2016 10:51am Urine Collection Type CLEANCATCH-MIDSTREAM 04/27/2016 10:17am 04/27 10:56am Urine Color YELLOW YELLOW 04/27/2016 10:17am 04/27/2016 10:56am Urine Turbidity CLEAR CLEAR 04/27/2016 10:17am 04/27/2016 10:56am Urine Specific [place] 1.025 1.015-1.025 04/27/2016 10:17am 2015 10:56am Urine pH 5.5 5.0-8.0 04/27/2016 10:17am 04/27/2016 10:56am Urine Leukocyte Esterase TRACE A NEGATIVE 04/27/2016 10:17am 2015 10:56am Urine Nitrite POSITIVE A NEGATIVE 04/27/2016 10:17am 04/27/2016 10: 56am Urine Protein 1+ A NEGATIVE 04/27/2016 10:17am 04/27/2016 10:56am Urine Glucose (UA) NEGATIVE NEGATIVE 04/27/2016 10:17am 04/27/2016 10 :56am Urine Ketones 1+ A NEGATIVE 04/27/2016 10:17am 04/27/2016 10:56am Urine Urobilinogen 0.2 EU/DL NORMAL 04/27/2016 10:17am 04/27/2016 10: 56am Urine Bilirubin NEGATIVE NEGATIVE 04/27/2016 10:17am 04/27/2016 10: 56am Urine Blood TRACE-INTACT A NEGATIVE 04/27/2016 10:17am 04/27/2016 10: 56am Urine WBC 5-10 /HPF H 0-5 04/27/2016 10:17am 04/27/2016 11:04am Urine RBC 1-3 /HPF 0-3 04/27/2016 10:17am 04/27/2016 11:04am Urine Bacteria 4+ H NEGATIVE 04/27/2016 10:17am 04/27/2016 11:04am Urine Mucus PRESENT 04/27/2016 10:17am 04/27/2016 11:04am Urine Culture Indicated CULT REFLEXED &SETUP 04/27/2016 10:17am 02/2016 11:04am Glucometer 90 mg/dL 65-110 04/29/2016 11:50am 04/29/2016 11:59am Microbiology Results Procedure Source Organism/Result Collection Date/Time Result Date/Time Result Status Blood Culture Peripheral/Iv Start NO GROWTH AFTER 48 HOURS 04/27/2016 10: 01am 04/29/2016 10:03am Preliminary Urine Culture Urine, Straight Cath ESCHERICHIA COLI 04/27/2016 10:17am 04/2016 7:32am Final Name: JOSE ALEJANDRO MERCADO Unit #: [id number] : 1955 Sex: F DISCHARGE SUMMARY Admit Date: 04/27/16 Report #: [id number] [facility] General Date Date DATE: 04/29/16 TIME: 13:11 Attending Physician Irina Borges II, MD Admitting Physician Irina Borges II, MD Consulting Physician Admitting Diagnosis 1) UTI 2) ACUTE ENCEPHALOPATHY 3) GENERALIZED WEAKNESS Discharge Diagnosis UTI Laboratory Laboratory Tests Test 04/28/16 06:15 04/28/16 07:08 04/28/16 10:13 04/28/16 13:53 Glucometer 86mg/dL (65-110) 88mg/dL (65-110) 108mg/dL (65-110) White Blood Count 5.6T/MM3 (4.5-11.0) Red Blood Count 3.86M/MM3 (4.00-5.20) Hemoglobin 11.4GM/DL (12-16) Hematocrit 34.9% (36-46) Mean Corpuscular Volume 90.4UM3 (80-100) Mean Corpuscular Hemoglobin 29.5UUG (26-34) Mean Corpuscular Hemoglobin Concent 32.7GM/DL (31-37) RDW Standard Deviation 43.4FL (36.9-50.2) Platelet Count 152T/MM3 (130-400) Mean Platelet Volume 8.7UM3 (9.4-12.4) Immature Granulocyte % (Auto) 0.7% (0.0-0.5) Neutrophils (%) (Auto) 75.9% (33-66) Lymphocytes (%) (Auto) 15.0% (23-45) Monocytes (%) (Auto) 7.7% (0-9.0) Eosinophils (%) (Auto) 0.5% (0-4) Basophils (%) (Auto) 0.2% (0-2) Absolute Immature Granulocyte (auto 0.04T/MM3 (0.00-0.03) Absolute Neutrophils (auto) 4.3T/MM3 (1.8-7.7) Absolute Lymphocytes (auto) 0.8T/MM3 (1-4.8) Absolute Monocytes (auto) 0.4T/MM3 (0-0.8) Absolute Eosinophils (auto) 0.0T/MM3 (0-0.5) Absolute Basophils (auto) 0.0T/MM3 (0-0.2) Turbidity < 20 (0-20) Sodium Level 143MEQ/L (134-144) Potassium Level 3.5MEQ/L (3.6-5) Chloride Level 103MEQ/L (98-107) Carbon Dioxide Level 27MEQ/L (22-30) Anion Gap 13MEQ/L (5-15) Blood Urea Nitrogen 8.0MG/DL (7-17) Creatinine 0.5MG/DL (0.7-1.2) Glomerular Filtration Rate Calc 126 BUN/Creatinine Ratio 16RATIO (6-26) Glucose Level 102MG/DL (65-110) Calculated Osmolality 273MOSM/KG (261-280) Calcium Level 7.9MG/DL (8.4-10.2) Total Bilirubin 0.90MG/DL (0.20-1.30) Icterus Index < 2 (0-7) Aspartate Amino Transf (AST/SGOT) 62U/L (14-36) Alanine Aminotransferase (ALT/SGPT) 53U/L (9-52) Alkaline Phosphatase 67U/L (38-126) Troponin I < 0.012ng/ml (0-0.12) Total Protein 5.9G/DL (6.3-8.2) Albumin 3.2G/DL (3.5-5.0) Globulin 2.7G/DL (2.4-3.6) Albumin/Globulin Ratio 1.2RATIO (1.1-2.2) Chemistry Specimen Hemolysis 72 (0-25) Test 04/28/16 14:58 04/28/16 20:43 04/29/16 05:55 04/29/16 11:10 Troponin I < 0.012ng/ml (0-0.12) Chemistry Specimen Hemolysis < 15 (0-25) Glucometer 95mg/dL (65-110) 78mg/dL (65-110) 69mg/dL (65-110) Test 04/29/16 11:50 Glucometer 90mg/dL (65-110) Microbiology Microbiology Date/Time Source Procedure Growth Status 04/27/16 10:01 Peripheral/Iv Start Blood Culture - Preliminary NO GROWTH AFTER 48 HOURS Resulted 04/27/16 09:46 Peripheral/Iv Start Blood Culture - Preliminary NO GROWTH AFTER 48 HOURS Resulted 04/27/16 10:17 Urine, Straight Cath Urine Culture - Final Escherichia Coli Complete History of Present Illness Pt is a 61 yo F with a PMH of sepsis following a UTI, IDDMII, HTN, HLD, chronic pain who was brought to the ED via EMS after suffering a fall at home. She recalls falling at least 4 times prior to her arrival at the ED. She reports +LOC with the last fall and woke up when EMS was in her home. She is confused about her timeline and thinks the falls happened yesterday and she has been in the ED all night. She is oriented to person and place. She is able to tell me the proper date including day of the week, month, year but is unable to recall her timeline of events. She c/o RUE weakness. Denies hitting her head. Denies recent cough, cold, soa, abd pain, n/v/d/c, dysuria, urinary frequency, urinary urgency, new back pain, flank pain. In the ED she was noted to have evidence of a UTI. WBC, pro-calcitonin, and lactic acid are all wnl. She was tachycardic and febrile upon arrival. She has responded well to fluids with resolution of her tachycardia. BP has remained stable. EKG in the ED shows ST elevate in leads II, III, and AVF. Patient's only complaint is worsening weakness in her BLE over the past few days. Hospital Course Pt was admitted and started on IVF and IV antibiotics, pt slowly improved and was stable by friday, still with unstable gait. Today pt s BGMs were stable, a little low this am and given food. Pt is afebrile and vitals are stable Problems: Code Status Full Code, unverified Home Meds Active Scripts Nitrofurantoin Monohyd/M-Cryst (Macrobid 100 mg Capsule) 100 Mg Capsule, 1 CAP PO WB for 30 Days, #30 CAP 10 Refills Take on capsule, by mouth, daily with breakfast. Prov:IRINA BORGES II, MD 04/29/16 Aspirin *EC* (Low Dose Aspirin EC) 81 Mg Tablet.dr, 1 TAB PO DAILY for CAD for 90 Days, #90 TAB 3 Refills Prov:IRINA BORGES II, MD 04/29/16 Levofloxacin (Levaquin) 500 Mg Tablet, 500 MG PO DAILY for UTI for 5 Days, #5 BOTTLE Prov:IRINA BORGES II, MD 04/29/16 Reported Medications Atorvastatin Calcium (Atorvastatin Calcium) 40 Mg Tablet, 40 MG PO HS 04/27/16 Sucralfate (Sucralfate) 1 Gm Tablet, 1 GM PO ACHS 04/27/16 Prednisone (Prednisone) 10 Mg Tablet, 20 MG PO DAILY 04/27/16 Pantoprazole Sodium (Protonix) 40 Mg Tablet.dr, 40 MG PO ACB 04/27/16 Insulin Aspart (Novolog Flexpen) 1 Unit Pen, 12 UNIT SQ TIDWM 04/27/16 Hydrocodone/Apap 7.5/325 Mg ([place] 7.5-325 Tablet) 7.5-325 Tablet, 1 TAB PO HS, #1 TAB 03/04/16 Insulin Glargine,Hum.rec.anlog (Toujeo Solostar) 300 Unit/1 Ml Insuln.pen, 8 UNIT SQ HS 03/04/16 Losartan/Hydrochlorothiazide (Losartan-Hctz 50-12.5 mg Tab) 1 Each Tablet, 1 TAB PO DAILY 11/05/14 Alprazolam (Alprazolam) 0.25 Mg Tab.rapdis, 0.25 MG PO BID Y for ANXIETY 05/28/14 Gabapentin (Gabapentin) 100 Mg Capsule, 100 MG PO QID 09/21/11 Sertraline Hcl (Zoloft) 100 Mg Tablet, 150 MG PO DAILY 09/21/11 Face to Face Encounter I met with patient on the day of dismissal and discussed follow up appointments , medications, and safety plan. Discharge Disposition to home IRINA BORGES II, MD Apr 29, 2016 13:15 Procedures Procedure Status Date Provider(s) MAVERICK SUBQ TISSUE 20 SQ CM/< Completed 02/19/16 [id number]"BORDER, EACH DRESSING" Completed 02/19/16 E&M LEVEL - FACILITY Completed 02/19/16 [id number]"BORDER, EACH DRESSING" Completed 02/27/16 E&M LEVEL - FACILITY Completed 02/27/16 EGD BIOPSY SINGLE/MULTIPLE Completed 03/04/16 ADEEL SANDOVAL MD, FACS, CWS BLOOD TRANSFUSION SERVICE Completed 03/04/16 IRINA BORGES II, MD EXCISION OF STOMACH, ENDO, DIAGN Completed 03/11/16 ADEEL SANDOVAL MD, FACS, CWS TRANSFUSE NONAUT RED BLOOD CELLS IN PERIPH VEIN, PERC Completed 03/11/16 IRINA BORGES II, MD Encounters Encounter Location Arrival/Admit Date Discharge/Depart Date Attending Provider Discharged Inpatient [facility] 04/27/16 2:44pm 04/29/16 2:00pm IRINA BORGES II, MD Discharged Inpatient [facility] 03/04/16 9:34am 03/15/16 4:05pm IRINA BORGES II, MD Registered [facility] 02/27/16 1:28pm JAS RIVAS MD Registered [facility] 02/19/16 12:54pm JAS RIVAS MD
[2016-08-22 12:05] VITALS: Ht 160 cm; Wt 86.3 kg
--- NOTE | 2016-08-22 12:26 | ERPDOC ---
Departure Disposition Decision Date: Aug 22, 2016 Disposition Decision Time: 18:19 (JOI FARIASPing Fraga APRN) Disposition: 01 DISCHARGED HOME, SELF-CARE Impression Impression (JOI FARIASPing Fraga APRN) Impression: Primary Impression: Gastroenteritis Severity: Moderate (DINORACHERI Fraga APRN) Condition: Stable Seen By: Mid-level only (VERONICACHERI NGUYEN APRN) Referrals: IRINA BOGRES II, MD (Family) Patient Instructions: Gastroenteritis (ED) Problems/Meds/Labs Reviewed?: Yes Medications reviewed and manag: Yes (VERONICAPATRICKCHERI Fraga APRN) Additional Instructions: I do want you to take the Zofran as needed for nausea at home. Make sure that you are taking small frequent sips of clear liquids at home to maintain hydration. You may use some Imodium as needed for the diarrhea if you need it. Your labs today are normal. I do want you to make sure you are monitoring your blood sugars at home before you take your insulin again as you had a low reading while in ER. Follow up care ordered?: Yes Mental Status: Alert (VERONICAPATRICKCHERIPing Fraga APRN) Scripts Ondansetron (Zofran Odt) 4 Mg Tab.rapdis 4 MG PO Q8HR, #7 TAB 0 Refills Orally disintegrating tablet Prov: JOI FARIASPing Fraga APRN 08/22/16 HPI - Abdominal Pain General Stated Complaint: DIARRHEA AND VOMITING Time Seen by Provider: 12:12 Source: patient History/Exam Limitations: no limitations (VERONICACHERI NGUYEN APRN) Time Seen by Provider: 12:12 (JW ARROYO DO) HPI - Abdominal Pain Initial Comments For the last 3 days she has had nausea/vomiting and diarrhea. Has had some mild abdominal pain and reflux. Has been trying to drink fluids but is feeling weak and dizzy. Is concerned for dehydration. The stools are just really soft. Her home health nurse came out today and advised that she come to ER for reevaluation. Has been admitted for sepsis from UTI, most recently in April 2016. Occurred At: home Onset: Gradual Duration: other (Over the last 3 days) Quality: cramping Location: generalized abdomen Radiation: no radiation Associated Symptoms: fatigue, heartburn, nausea/vomiting, DENIES: back pain, chest pain, diaphoresis, fever/chills, headache, rash, shortness of breath, swelling/mass in abdomen, syncope, weakness Hx of Similar Symptoms: No (NOLD,CHERI N WRIST LINER) Allergies: Coded Allergies: amoxicillin trihydrate (Verified Allergy, Severe, 04/27/16) meperidine HCl (Verified Allergy, Severe, 04/27/16) potassium clavulanate (Verified Allergy, Severe, 04/27/16) cephalexin (Verified Allergy, Intermediate, RASH, 04/27/16) promethazine (Verified Allergy, Unknown, 04/27/16) Past History Patient Surgical History bilateral cataracts surgery 2008 & 2009 cholecystectomy 1991 in [facility] multiple foot surgery brandy-bso with appy 1983 in [place] 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 Christine (NOLD,CHERI N WRIST LINER) Past Medical History Metabolic: diabetes, hypertension, other ENMT: allergies Respiratory: asthma GI: GERD Female: UTI Neurological: fibromyalgia, neuropathy Musculoskeletal: osteoarthritis Integumentary: melanoma, other Psychological: anxiety, depression, drug abuse (NOLD,CHERI N WRIST LINER) Surgical History General: appendix, gallbladder, other, tonsils Reproductive/: hysterectomy Joint: foot (NOLD,CHERI N WRIST LINER) Family History Family PMH: FOUND: hypertension (NOLD,CHERI N WRIST LINER) Vaccines Hx Influenza Vaccination: No Hx Pneumococcal Vaccination: No Hx Tetanus Diptheria: No Hx Tetanus, Diptheria, Pertuss: No (NOLD,CHERI N WRIST LINER) Social History Does patient use chewing tobac: No Second Hand Exposure: No Substance Use Type: does not use Alcohol Intake: occasionally Marital Status: Sexuality: male partner Current Occupational Status: disabled (NOLD,CHERI N WRIST LINER) Review of Systems Constitutional Constitutional: DENIES: chills, dizziness, fatigue, fever, weakness (NOLD, CHERI N WRIST LINER) Cardiovascular Cardiac: DENIES: chest pain, orthopnea Rhythm/Rate: DENIES: irregular beat, palpitations (NOLD,CHERI N WRIST LINER) Pulmonary Respiratory: DENIES: cough, dyspnea, sputum, tachypnea (NOLD,CHERI N WRIST LINER) GI Upper Abdomen: heartburn/indigestion, nausea, pain, vomiting Lower Abdomen: diarrhea, pain, DENIES: constipation (NOLD,CHERI N WRIST LINER) General: DENIES: dysuria, frequency, urgency (NOLD,CHERI N WRIST LINER) Musculoskeletal General: DENIES: cramps (NOLD,CHEIR N WRIST LINER) Integumentary Skin: DENIES: rash (NOLD,CHERI N WRIST LINER) Neurological General: weakness, DENIES: headache, numbness, tingling (NOLD,CHERI N WRIST LINER) Physical Exam General General Nourishment: well nourished, well developed, appears stated age, no acute distress, adult General Body Habitus: well groomed (NOPATRICK,CHERI N WRIST LINER) Vitals and Pain First Documented Vital Signs Date Time Temp Pulse Resp B/P Pulse Ox O2 Delivery O2 Flow Rate FiO2 08/22/16 12:05 97.5 95 18 98/51 94 Room Air 08/22/16 12:49 2.00 (JW ARROYO DO) Vitals and Pain Weight: Kilograms: Height (feet): 5 Height (inches): 3.00 Triage Pain Scale: (DINORA,CHERI N WRIST LINER) RN VS reviewed by Provider: Yes (CHERI FARIAS WRIST LINER) Normal Exams: Neck: Full range of motion, without adenopathy, JVD, bruits or thyromegaly Chest/Resp: Clear all gonzalez, with good airflow, and symmetry bilaterally CV: Regular rate and rhythm, without murmur or gallop, Pulses 2+ all extremities, capillary refill, <2 seconds all ext., no pedal edema noted Abdomen: Bowel sounds positive, soft, non-tender, non-distended, no hepatosplenomegaly, masses or bruits noted Lymphatic: No lymphadenopathy, or lymphedema noted Integumentary: No rashes, hives, or bruising noted Neurologic: Patient is alert, and oriented Psychiatric: Patient exhibits, appropriate attention, emotion and affect (NOPATRICK,CHERI N WRIST LINER) Differential Diagnoses Considering: Gastroenteritis, GERD, GI Bleed, Hepatitis, Pancreatitis, UTI, Other (Dehydration) (NOPATRICK,CHERI N WRIST LINER) Progress Results/Orders Orders Procedure Category Date Status Time Cbc W/Auto LAB 08/22/16 Complete Diff-Reflex Manual Cmp - Comprehensive LAB 08/22/16 Complete Metabolic Iv Lock (Ed Only) EDM 08/22/16 Transmitted 12:21 Ua, Dip Wreflex LAB 08/22/16 Complete Microsc & Cafeter[employer] Server 12:21 Normal Saline (Normal PHA 08/22/16 Complete Saline Iv) 12:30 Ondansetron Inj PHA 08/22/16 Complete (Zofran) 12:30 Chest, Pa & Lateral RAD 08/22/16 Resulted EKG EKG 08/22/16 Taken Troponin I W LAB 08/22/16 Complete Hemolysis Index Dextrose 50% Pfs PHA 08/22/16 Complete (D50w) 13:45 Potassium Chloride PHA 08/22/16 Complete (Kdur) 14:15 Metoclopramide PHA 08/22/16 Complete (Reglan Inj) 14:45 Lactate - Lactic Acid LAB 08/22/16 Complete Procalcitonin LAB 08/22/16 Complete 15:40 Lactate - Lactic Acid LAB 08/22/16 Logged 20:10 Blood Culture KIM 08/22/16 In Process 15:40 (JW ARROYO DO) Lab Results Laboratory Tests Test 08/22/16 12:47 08/22/16 12:52 08/22/16 13:52 08/22/16 14:26 Plasma Lactate 0.9MMOL/L Procalcitonin 0.06NG/ML White Blood Count 11.2T/MM3 Red Blood Count 4.78M/MM3 Hemoglobin 13.5GM/DL Hematocrit 41.7% Mean Corpuscular Volume 87.2UM3 Mean Corpuscular Hemoglobin 28.2UUG Mean Corpuscular Hemoglobin Concent 32.4GM/DL RDW Standard Deviation 49.7FL Platelet Count 294T/MM3 Mean Platelet Volume 9.1UM3 Immature Granulocyte % (Auto) 1.1% Neutrophils (%) (Auto) 84.6% Lymphocytes (%) (Auto) 8.8% Monocytes (%) (Auto) 5.1% Eosinophils (%) (Auto) 0.1% Basophils (%) (Auto) 0.3% Absolute Immature Granulocyte (auto 0.12T/MM3 Absolute Neutrophils (auto) 9.5T/MM3 Absolute Lymphocytes (auto) 1.0T/MM3 Absolute Monocytes (auto) 0.6T/MM3 Absolute Eosinophils (auto) 0.0T/MM3 Absolute Basophils (auto) 0.0T/MM3 Turbidity < 20 Sodium Level 138MEQ/L Potassium Level 3.1MEQ/L Chloride Level 95MEQ/L Carbon Dioxide Level 24MEQ/L Anion Gap 19MEQ/L Blood Urea Nitrogen 14.0MG/DL Creatinine 0.8MG/DL Glomerular Filtration Rate Calc 73 BUN/Creatinine Ratio 18RATIO Glucose Level 46MG/DL Calculated Osmolality 264MOSM/KG Calcium Level 9.1MG/DL Total Bilirubin 1.00MG/DL Icterus Index < 2 Aspartate Amino Transf (AST/SGOT) 47U/L Alanine Aminotransferase (ALT/SGPT) 43U/L Alkaline Phosphatase 70U/L Troponin I < 0.012ng/ml Total Protein 6.6G/DL Albumin 3.8G/DL Globulin 2.8G/DL Albumin/Globulin Ratio 1.4RATIO Chemistry Specimen Hemolysis < 15 Glucometer 101mg/dL 158mg/dL Test 08/22/16 15:08 08/22/16 15:40 Urine Collection Type Cleancatch-midstream Urine Color Yellow Urine Turbidity Clear Urine pH 6.0 Urine Specific [place] 1.010 Urine Protein Negative Urine Glucose (UA) Trace Urine Ketones 2+ Urine Blood Negative Urine Nitrite Negative Urine Bilirubin 1+ Urine Urobilinogen 0.2EU/DL Urine Leukocyte Esterase Negative Urinalysis Comment Microscopic not ind. Glucometer 171mg/dL (JW ARROYO DO) Medications Current ED Medications Sodium Chloride (Normal Saline IV) 1,000 ml @ 1,000 mls/hr Q1H ONCE IV Last administered on 08/22/16 12:43; Start 08/22/16 at 12:30; Stop 08/22/16 at 13:29; Status DC Ondansetron HCl (Zofran) 4 mg O ONCE IV Last administered on 08/22/16 12:44; Start 08/22/16 at 12:30; Stop 08/22/16 at 12:31; Status DC Dextrose/Water (D50w) 50 ml O ONCE IV ; Start 08/22/16 at 13:30; Stop 08/22/16 at 13:31; Status Cancel Dextrose (D50w) 50 ml O ONCE IV Last administered on 08/22/16 13:43; Start 08/22/16 at 13:45; Stop 08/22/16 at 13:46; Status DC Potassium Chloride (Kdur) 40 meq O ONCE PO Last administered on 08/22/16 14:21 ; Start 08/22/16 at 14:15; Stop 08/22/16 at 14:16; Status DC Metoclopramide HCl (REGLAN Inj) 10 mg O ONCE IV Last administered on 08/22/16 14:47; Start 08/22/16 at 14:45; Stop 08/22/16 at 14:46; Status DC (JW ARROYO DO) Progress Progress 1400-She is feeling better after IVF and nausea medication. BGM was 46 on lab. Was given D50 IV and has eaten applesauce and milk. Is tolerating PO well. K+- 3.1 so will replace orally. CBC is normal and CMP otherwise unremarkable. Awaiting UA results. 1540- UA is negative for infection. Patient is sleepy and b/p is noted to be in the 90s systolic. O2 sats are down to upper 80s while asleep but come back up to mid 90s while awake. Did order Lactate and procalcitonin to verify no sepsis due to abnormality in vital signs. Lab does have difficulty with blood draw and asks to run specimen off of lab drawn at 1247. 1620- Lactate back and is elevated. Discussed with Dr Waterman. Does recommend repeat draw as lactate will go up on old blood and 3 hours had passed since draw and run time. Lab notified of need for new draw. B/P has come up to 116 systolic with repositioning patient and use of a wrist cuff. 1800-New lactate is drawn and resulted in normal range. B/P has remained above 100 systolic since repositioning. O2 sats remain in the 90s and she is more alert. Will go ahead and let her go home today. F/U with PCP on Friday as scheduled. Zofran for nausea. Strict return precautions given. (CHERI FARIAS APRN) Xray Xray : Reason for Exam: chest pressure Xray: CXR Portable Interpretation: Normal (CHERI FARIAS APRN) CHERI FARIAS APRN Aug 22, 2016 12:26 JW ARROYO DO Aug 22, 2016 19:12
[2016-08-22] MEDS ORDERED: ASPI-1085 PO (12:28)
[2016-08-22] MEDS ORDERED: NORMAL SALINE 1,000 ML IV ONE (12:30)
[2016-08-22] MEDS ORDERED: ONDANSETRON 4mg/2ml INJECTION IV ONE (12:30)
[2016-08-22] MEDS ORDERED: NITR100C4 PO (12:30)
--- NOTE | 2016-08-22 12:49 | NUR ---
O2 O2 SATS 85 % ON ROOM AIR, N NOLD INOCULATOR NOTIFIED, ORDER REC'D FOR O2 ADMIN
--- NOTE | 2016-08-22 12:52 | NUR ---
UPDATE PATIENT REPORTS SHE HAS BEEN HAVING CHEST HEAVINESS 12/26 SINCE LAST NIGHT, N DINORA MILLER APPRENTICE UPDATED, ORDERS REC'D
--- NOTE | 2016-08-22 13:03 | NUR ---
UPDATE PATIENT REPORTS CHEST HEAVINESS HASDECREASED TO 5/10 AFTER O2 ADMIN.
[2016-08-22 13:11] LABS: BASOPHILS % (AUTO) 0.3 % (0-2); EOSINOPHILS % (AUTO) 0.1 % (0-4); HCT - HEMATOCRIT 41.7 % (36-46); HGB - HEMOGLOBIN 13.5 GM/DL (12-16); IMMATURE GRANULOCYTE # (AUTO) 0.12 T/MM3 (0.00-0.03); IMMATURE GRANULOCYTE % (AUTO) 1.1 % (0.0-0.5); LYMPHOCYTES % (AUTO) 8.8 % (23-45); MEAN CORPUSCULAR HGB 28.2 UUG (26-34); MEAN CORPUSCULAR HGB CONC(MCHC 32.4 GM/DL (31-37); MEAN CORPUSCULAR VOLUME 87.2 UM3 (80-100); MEAN PLATELET VOLUME 9.1 UM3 (9.4-12.4); MONOCYTES # (AUTO) 0.6 T/MM3 (0-0.8); MONOCYTES % (AUTO) 5.1 % (0-9.0); NEUTROPHILS #(AUTO)-ABSOLUTE 9.5 T/MM3 (1.8-7.7); NEUTROPHILS % (AUTO) 84.6 % (33-66); RED BLOOD COUNT 4.78 M/MM3 (4.00-5.20); WBC - WHITE BLOOD COUNT 11.2 T/MM3 (4.5-11.0)
[2016-08-22 13:16] LABS: ALBUMIN 3.8 G/DL (3.5-5.0); ALBUMIN/GLOBULIN RATIO 1.4 RATIO (1.1-2.2); ALKALINE PHOSPHATASE 70 U/L (38-126); ALT (SGPT) 43 U/L (9-52); ANION GAP 19 MEQ/L (5-15); AST (SGOT) 47 U/L (14-36); BUN/CREATININE RATIO 18 RATIO (6-26); CALCIUM 9.1 MG/DL (8.4-10.2); CHLORIDE 95 MEQ/L (98-107); CO2 - CARBON DIOXIDE 24 MEQ/L (22-30); CREATININE 0.8 MG/DL (0.7-1.2); GLOMERULAR FILTRATION RATE 73; GLUCOSE 46 MG/DL (65-110); POTASSIUM 3.1 MEQ/L (3.6-5); SODIUM 138 MEQ/L (134-144); TOTAL PROTEIN 6.6 G/DL (6.3-8.2)
--- NOTE | 2016-08-22 13:24 | NUR ---
INTAKE PATIENT GIVEN APPLE SAUCE, CRANBERRY JUICE. PATIENT IS ALERT AND ORIENTED.
--- OUTSIDE RECORDS SUMMARY | 2016-08-22 13:29 | XMS REPORT | Continuity of Care Document ---
Author Author [facility] Organization [facility] Address Unknown Phone Unavailable Allergies Active Description [...] Status Pt. Type Provider Facility Loc./Unit Complaint [id number] 04/12/2013 05:22:00 2012 17:30:00 DIS Inpatient Derek Mayer DO [facility] on [place] F8SE [id number] 04/08/2013 08:28:00 2012 23:59:59 CLS Outpatient Derek Mayer DO [facility] on [facility]
--- OUTSIDE RECORDS SUMMARY | 2016-08-22 13:29 | XMS REPORT | Continuity of Care Document ---
Author Author [facility] Organization [facility] Address Unknown Phone Unavailable Support Name Relationship Address Phone KAJAL SANTIAGO MD Caregiver [facility] [address] [place] [address] Unavailable IRINA BORGES II, MD Caregiver [address] [place] [phone] JASWINDER ESCOBEDO MD Caregiver [address] [place] [phone] LYNDA MERCADO Next Of Kin [address] [id number] Insurance Providers Payer Name Policy Number Subscriber Name Relationship Medicare [id number] Jose Alejandro Mercado 19 Self Advance Directives [...] F (96.8 - 99.1) Temperature (Calculated Celsius) 36.26806 degrees C (36.0 - 37.3) Temperature Source [...] Has specimen been collected/obtained? Y Urine Specific [place] May 31, 2014 11:40am <=1.005 L - [...] 04, 2012 11:37am LAB TEST FORM REQUEST [id number] - Turbidity June 04, 2014 4:49am < [...] 9:53am Name: JOSE ALEJANDRO MERCADO Unit #: [id number] : [id number] Sex: F Loc / Svc: MED DOS: 05/28/14 Signed Report #: [id number] DIAGNOSTIC IMAGING REPORT TYPE OF EXAM: CHEST [...] procedures. Encounters Encounter Location Date/Time Discharged Inpatient [facility] 05/28/14 11:21am Recent Diagnosis Influenza B Addisons disease Hypoxemia Dehydration Chest pain Diabetes Hypertension
[2016-08-22] MEDS ORDERED: DEXTROSE 50% IV ONE (13:30)
--- NOTE | 2016-08-22 13:43 | DI ---
INDICATION: ITS.REASON: dyspnea PROCEDURE: CHEST 2-VIEWS UPRIGHT (PA \T\ LAT) Encounter: Initial COMPARISON: March 07, 2016 FINDINGS: The lungs are clear without evidence of focal abnormal airspace opacity. There is no pleural effusion or pneumothorax. The heart size, mediastinal contours and pulmonary vascularity are within normal limits. IMPRESSION: No acute cardiopulmonary disease. .
[2016-08-22] MEDS ORDERED: DEXTROSE 50% SYRINGE 50ml (Eq. 1 AMP) IV ONE (13:45)
[2016-08-22] MEDS ORDERED: POTASSIUM CHLORIDE 20 MEQ TABLET PO ONE (14:15)
[2016-08-22] MEDS ORDERED: METOCLOPRAMIDE 10mg/2ml INJECTION IV ONE (14:45)
--- NOTE | 2016-08-22 15:00 | NUR ---
O2 PATIENT ON ROOM AIR
[2016-08-22 15:27] LABS: BLOOD, URINE NEGATIVE (NEGATIVE); COLOR,URINE YELLOW (YELLOW); LEUKOCYTE ESTERASE ,URINE NEGATIVE (NEGATIVE); NITRITE,URINE NEGATIVE (NEGATIVE); UROBILINOGEN,URINE 0.2 EU/DL (NORMAL)
[2016-08-22] MEDS ORDERED: ONDA4TAB7 PO (15:34)
--- NOTE | 2016-08-22 15:34 | NUR ---
PROVIDER N NOLD PEDIATRIC HOSPITALIST TO BEDSIDE TO DISCUSS POC
--- NOTE | 2016-08-22 15:38 | NUR ---
UPDATE PATIENT REPORTS NAUSEA HAS IMPROVED AT THIS TIME. PATIENT SEEMS LETHARGIC, BLOOD GLUCOSE OBTAINED.
--- NOTE | 2016-08-22 15:52 | NUR ---
LAB LAB AT BEDSIDE FOR ADDITIONAL BLOOD DRAW
[2016-08-22 18:42] VITALS: BP 119/65; PULSE 85; RESP 22; TEMP 97.5; O2SAT 92
== END 2016-08-22 18:42 | disposition home or self-care (01) ==
LOC: ED 11:55
DX: K52.9 Noninfective gastroenteritis and colitis, unspecified (principal); E11.9 Type 2 diabetes mellitus without complications; Z79.4 Long term (current) use of insulin
CPT/HCPCS: 36415; 71020; 80053; 81003; 82948; 83605; 84145; 84484; 85025; 87040; 93005; 96361; 96374; 96375; 99284; A9270; J2405; J2765; J7030

== ENCOUNTER 2016-08-24 15:08 | Observation (INO) | payer MEDICARE ==
[~2016-08-24] VITALS: Ht 160 cm; Wt 89.0 kg
[~2016-08-24 15:08] MED LIST changes: +ASPI-1085 PO; -ASPI-914 PO; -LEVO500T63 PO; +ONDA4TAB7 PO
--- OUTSIDE RECORDS SUMMARY | 2016-08-24 15:24 | XMS REPORT | Continuity of Care Document ---
Author Author [facility] Organization [facility] Address Unknown Phone Unavailable Allergies Active Description [...] Status Pt. Type Provider Facility Loc./Unit Complaint [id number] 04/12/2013 05:22:00 2012 17:30:00 DIS Inpatient Derek Mayer DO [facility] on [place] F8SE [id number] 04/08/2013 08:28:00 2012 23:59:59 CLS Outpatient Derek Mayer DO [facility] on [facility]
--- OUTSIDE RECORDS SUMMARY | 2016-08-24 15:25 | XMS REPORT | Continuity of Care Document ---
Author Author [facility] Organization [facility] Address Unknown Phone Unavailable Support Name Relationship Address Phone KAJAL SANTIAGO MD Caregiver [facility] [address] [place] [place] [address] Unavailable IRINA BORGES II, MD Caregiver [address] [place] [phone] JASWINDER ESCOBEDO MD Caregiver [address] [place] [phone] LYNDA MERCADO Next Of Kin [address] [id number] Insurance Providers Payer Name Policy Number Subscriber Name Relationship Medicare [id number] Jose Alejandro Mercado 19 Self Advance Directives [...] F (96.8 - 99.1) Temperature (Calculated Celsius) 36.55553 degrees C (36.0 - 37.3) Temperature Source [...] Has specimen been collected/obtained? Y Urine Specific [place] May 31, 2014 11:40am <=1.005 L - [...] 04, 2012 11:37am LAB TEST FORM REQUEST [id number] - Turbidity June 04, 2014 4:49am < [...] 9:53am Name: JOSE ALEJANDRO MERCADO Unit #: [id number] : 1955 Sex: F Loc / Svc: MED DOS: 05/28/14 Signed Report #: [id number] DIAGNOSTIC IMAGING REPORT TYPE OF EXAM: CHEST [...] procedures. Encounters Encounter Location Date/Time Discharged Inpatient [facility] 05/28/14 11:21am Recent Diagnosis Influenza B Addisons disease Hypoxemia Dehydration Chest pain Diabetes Hypertension
--- OUTSIDE RECORDS SUMMARY | 2016-08-24 15:25 | XMS REPORT | Continuity of Care Document ---
Author Author [facility] Organization [facility] Address Unknown Phone Unavailable Support Name Relationship Address Phone IRINA BORGES II, MD Caregiver [address] [facility] [address] [address] [place] [address] Unavailable JW ARROYO DO Caregiver [address] [place] [address] Unavailable LYNDA MERCADO Next Of Kin [address] [place], [place] [id number] Insurance Providers Guarantor Jose Alejandro Mercado Address [address] [place] [address] Email DENIED 08-22-16 Payer Medicare Policy Number [id number] Subscriber's Name JosesitoJose Alejandro Jean Relationship 18 Self Effective Date 09 Chief Complaint and Reason for Visit Chief Complaint Nausea,Vomiting,Diarrhea Reason for Visit Gastroenteritis Problems Active Problems Medical Problem Onset Date [...] Medical Problem Onset Date Acute encephalopathy Unknown Gastroenteritis Unknown Sepsis Unknown UTI (urinary tract infection) Unknown UTI (urinary tract infection) Unknown Medications Current Home Medications Medication Dose Units Route Directions Days Qty Instructions Start Date Acetaminophen/Hydrocodone Bitart ([place] 7.5-325 Tablet) 7.5-325 Tablet 1 Tab Oral Bedtime 1 Tablet 03/04/16 Alprazolam 0.25 Mg Tab.rapdis 0.25 Mg Oral Twice A Day as needed for Anxiety 05/28/14 Aspirin (Aspirin Ec) 81 Mg Tablet. 81 Mg Oral Bedtime 08/22/16 Atorvastatin Calcium 40 Mg Tablet 40 Mg Oral Bedtime 04/27/16 Gabapentin 100 Mg Capsule 200 Mg Oral Twice A Day 09/21/11 Insulin Aspart (Novolog Flexpen) 1 Unit Pen 8 Unit Sub-Q Three Times Daily With Meals 04/27/16 Insulin Glargine,Hum.rec.anlog (Toujeo Solostar) 300 Unit/1 Ml Insuln.pen 6 Unit Sub-Q Bedtime 03/04/16 Losartan/Hydrochlorothiazide (Losartan-Hctz 50-12.5 Mg Tab) 1 Each Tablet 1 Tab Oral Daily 11/05/14 Nitrofurantoin Monohyd/M-Cryst (Macrobid 100 Mg Capsule) 100 Mg Capsule 1 Cap Oral Give With Breakfast for Uti 08/22/16 Ondansetron (Zofran Odt) 4 Mg Tab.rapdis 4 Mg Oral Q8h @ 0100/0900/1700 7 Tablet Orally disintegrating tablet 08/22/16 Pantoprazole Sodium (Protonix) 40 Mg Tablet. 40 Mg Oral Before Breakfast 04/27/16 Prednisone 10 Mg Tablet 20 Mg Oral Daily 04/27/16 Sertraline Hcl (Zoloft) 100 Mg Tablet 150 Mg Oral Bedtime Sucralfate 1 Gm Tablet 1 Gm Oral [...] Problem Response Recorded Date/Time Onset Date Status Chewing Tobacco Status No 08/21/2013 3:22pm Not Applicable Not Applicable Hx Substance Use No 08/22/2016 12:45pm Not Applicable Not Applicable Hx Alcohol Use No 08/22/2016 12:45pm Not Applicable Not Applicable Has the pt used tobacco in the last 12 months No 04/27/2016 1:30pm Not Applicable Not Applicable Tobacco Usage none 06/03/2014 3:34pm Not Applicable Not Applicable Query Response Start Date Stop Date Smoking Status Never smoker Hospital Discharge Instructions No hospital discharge instructions. Plan of Care Discharge Date 08/22/16 6:42pm Disposition 01 DISCHARGED HOME, SELF-CARE Condition at Discharge Stable Instructions/Education Provided Gastroenteritis (ED) Prescriptions See Medication Section Referrals IRINA BORGES II, MD Address: [address] [place] [address] [address] [facility] [place] [address] Additional Instructions/Education I do want you to take the Zofran as needed for nausea at home. Make sure that you are taking small frequent sips of clear liquids at home to maintain hydration. You may use some Imodium as needed for the diarrhea if you need it. Your labs today are normal. I do want you to make sure you are monitoring your blood sugars at home before you take your insulin again as you had a low reading while in ER. Care Plan and Goals Physician Care Plan Problem:Gastroenteritis Goal: Follow up with primary care provider Instructions: Take medications and follow care plan as discussed/written Functional Status No functional status results. Allergies, Adverse Reactions, Alerts Allergen Type Severity [...] No 08/21/13 5:07pm Influenza Vaccine Hx NONE 08/22/16 12:45pm Vital Signs Acute Vital Signs Vital Response Date/Time Temperature (Fahrenheit) 97.5 deg F (96.8 - 99.1) 08/22/2016 6:42pm Temperature (Calculated Celsius) 36.49423 degrees C (36.0 - 37.3) 08/22/2016 6:42pm Pulse Rate (adult) 85 bpm (60 - 100) 08/22/2016 6:42pm Respiratory Rate 22 breaths/min (10 - 20) 08/22/2016 6:42pm O2 Sat by Pulse Oximetry 92 % (90 - 100) 08/22/2016 6:42pm Oxygen Flow Rate 2.00 L/min 08/22/2016 6:42pm Blood Pressure 119/65 mm Hg 08/22/2016 6:42pm Height (Feet) 5 feet 08/22/2016 12:05pm Height (Inches) 3.00 inches 08/22/2016 12:05pm Weight (Kilograms) 86.300 kg 08/22/2016 12:05pm Body Mass Index (BMI) 33.0 08/22/2016 12:05pm Results Laboratory Results Test Name Result Units Flags Reference Collection Date/Time Result Date/ Time Comments Urine WBC 1-3 /HPF 0-5 08/01/2016 2:30pm 08/01/2016 3:19pm Urine RBC 0-1 /HPF 0-3 08/01/2016 2:30pm 08/01/2016 3:19pm Urine Squamous Epithelial Cells 5-10 08/01/2016 2:30pm 08/01/2016 3 :19pm Urine Bacteria TRACE H NEGATIVE 08/01/2016 2:30pm 08/01/2016 3:19pm Urine Culture Indicated CULT NOT INDICATED 08/01/2016 2:30pm 2016 3:19pm White Blood Count 11.2 T/MM3 H 4.5-11.0 08/22/2016 12:52pm 08/22/2016 1: 11pm Red Blood Count 4.78 M/MM3 4.00-5.20 08/22/2016 12:52pm 08/22/2016 1: 11pm Hemoglobin 13.5 GM/DL 12-16 08/22/2016 12:52pm 08/22/2016 1:11pm Hematocrit 41.7 % 36-46 08/22/2016 12:52pm 08/22/2016 1:11pm Mean Corpuscular Volume 87.2 UM3 80-100 08/22/2016 12:52pm 08/22/2016 1 :11pm Mean Corpuscular Hemoglobin 28.2 UUG 26-34 08/22/2016 12:52pm 2016 1:11pm Mean Corpuscular Hemoglobin Concent 32.4 GM/DL 31-37 08/22/2016 12:52pm 08/22/2016 1:11pm RDW Standard Deviation 49.7 FL 36.9-50.2 08/22/2016 12:52pm 08/22/2016 1:11pm Platelet Count 294 T/MM3 130-400 08/22/2016 12:52pm 08/22/2016 1:11pm Mean Platelet Volume 9.1 UM3 L 9.4-12.4 08/22/2016 12:52pm 08/22/2016 1: 11pm Neutrophils (%) (Auto) 84.6 % H 33-66 08/22/2016 12:52pm 08/22/2016 1: 11pm Lymphocytes (%) (Auto) 8.8 % L 23-45 08/22/2016 12:52pm 08/22/2016 1: 11pm Monocytes (%) (Auto) 5.1 % 0-9.0 08/22/2016 12:52pm 08/22/2016 1:11pm Eosinophils (%) (Auto) 0.1 % 0-4 08/22/2016 12:52pm 08/22/2016 1:11pm Basophils (%) (Auto) 0.3 % 0-2 08/22/2016 12:52pm 08/22/2016 1:11pm Immature Granulocyte % (Auto) 1.1 % H 0.0-0.5 08/22/2016 12:52pm 2016 1:11pm Absolute Neutrophils (auto) 9.5 T/MM3 H 1.8-7.7 08/22/2016 12:52pm 08/22 1:11pm Absolute Lymphocytes (auto) 1.0 T/MM3 1-4.8 08/22/2016 12:52pm 2016 1:11pm Absolute Monocytes (auto) 0.6 T/MM3 0-0.8 08/22/2016 12:52pm 2016 1:11pm Absolute Eosinophils (auto) 0.0 T/MM3 0-0.5 08/22/2016 12:52pm 2016 1:11pm Absolute Basophils (auto) 0.0 T/MM3 0-0.2 08/22/2016 12:52pm 2016 1:11pm Absolute Immature Granulocyte (auto 0.12 T/MM3 H 0.00-0.03 08/22/2016 12: 52pm 08/22/2016 1:11pm Icterus Index < 2 0-7 08/22/2016 12:52pm 08/22/2016 1:16pm Chemistry Specimen Hemolysis < 15 0-25 08/22/2016 12:52pm 08/22/2016 1:16pm 0-25: Specimen Exhibited No Hemolysis. Turbidity < 20 0-20 08/22/2016 12:52pm 08/22/2016 1:16pm Sodium Level 138 MEQ/L 134-144 08/22/2016 12:52pm 08/22/2016 1:16pm Potassium Level 3.1 MEQ/L L 3.6-5 08/22/2016 12:52pm 08/22/2016 1:16pm Chloride Level 95 MEQ/L L 98-107 08/22/2016 12:52pm 08/22/2016 1:16pm Carbon Dioxide Level 24 MEQ/L 22-30 08/22/2016 12:52pm 08/22/2016 1: 16pm Anion Gap 19 MEQ/L H 5-15 08/22/2016 12:52pm 08/22/2016 1:16pm Blood Urea Nitrogen 14.0 MG/DL 7-17 08/22/2016 12:52pm 08/22/2016 1: 16pm Creatinine 0.8 MG/DL 0.7-1.2 08/22/2016 12:52pm 08/22/2016 1:16pm BUN/Creatinine Ratio 18 RATIO 6-26 08/22/2016 12:52pm 08/22/2016 1: 16pm Glomerular Filtration Rate Calc 73 08/22/2016 12:52pm 08/22/2016 1: 16pm Glucose Level 46 MG/DL *L 65-110 08/22/2016 12:52pm 08/22/2016 1:16pm Calculated Osmolality 264 MOSM/KG 261-280 08/22/2016 12:52pm 2016 1:16pm Calcium Level 9.1 MG/DL 8.4-10.2 08/22/2016 12:52pm 08/22/2016 1:16pm Total Bilirubin 1.00 MG/DL 0.20-1.30 08/22/2016 12:52pm 08/22/2016 1: 16pm Alkaline Phosphatase 70 U/L 38-126 08/22/2016 12:52pm 08/22/2016 1: 16pm Total Protein 6.6 G/DL 6.3-8.2 08/22/2016 12:52pm 08/22/2016 1:16pm Albumin 3.8 G/DL 3.5-5.0 08/22/2016 12:52pm 08/22/2016 1:16pm Globulin 2.8 G/DL 2.4-3.6 08/22/2016 12:52pm 08/22/2016 1:16pm Albumin/Globulin Ratio 1.4 RATIO 1.1-2.2 08/22/2016 12:52pm 08/22/2016 1:16pm Aspartate Amino Transf (AST/SGOT) 47 U/L H 14-36 08/22/2016 12:52pm 10/2016 1:16pm Alanine Aminotransferase (ALT/SGPT) 43 U/L 9-52 08/22/2016 12:52pm 10/2016 1:16pm Troponin I < 0.012 ng/ml 0-0.12 08/22/2016 12:52pm 08/22/2016 1:27pm Troponin values with a difference of 55% increase from orginal troponin value represent a true biological DELTA value. (%increase Calc=Orginal Troponin value, divided by subsequent Troponin value, multiplied by 100) Plasma Lactate 0.9 MMOL/L 0.6-2.2 08/22/2016 12:47pm 08/22/2016 6:18pm rerun on fresh specimen new result called to janeen sjd Procalcitonin 0.06 NG/ML 08/22/2016 12:47pm 08/22/2016 4:35pm PCT </ =0.5 ng/mL - sepsis not likely; PCT >0.5 and </=2 ng/mL - sepsis possible; PCT >2 ng/mL - sepsis likely; PCT >/=10 ng/mL - systemic inflammatory response - sepsis or septic shock highly indicated. Urine Collection Type CLEANCATCH-MIDSTREAM 08/22/2016 3:08pm 2016 3:27pm Urine Color YELLOW YELLOW 08/22/2016 3:08pm 08/22/2016 3:27pm Urine Turbidity CLEAR CLEAR 08/22/2016 3:08pm 08/22/2016 3:27pm Urine Specific [place] 1.010 L 1.015-1.025 08/22/2016 3:08pm 2016 3:27pm Urine pH 6.0 5.0-8.0 08/22/2016 3:08pm 08/22/2016 3:27pm Urine Leukocyte Esterase NEGATIVE NEGATIVE 08/22/2016 3:08pm 2016 3:27pm Urine Nitrite NEGATIVE NEGATIVE 08/22/2016 3:08pm 08/22/2016 3:27pm Urine Protein NEGATIVE NEGATIVE 08/22/2016 3:08pm 08/22/2016 3:27pm Urine Glucose (UA) TRACE A NEGATIVE 08/22/2016 3:08pm 08/22/2016 3: 27pm Urine Ketones 2+ A NEGATIVE 08/22/2016 3:08pm 08/22/2016 3:27pm Urine Urobilinogen 0.2 EU/DL NORMAL 08/22/2016 3:08pm 08/22/2016 3: 27pm Urine Bilirubin 1+ A NEGATIVE 08/22/2016 3:08pm 08/22/2016 3:27pm Urine Blood NEGATIVE NEGATIVE 08/22/2016 3:08pm 08/22/2016 3:27pm Urinalysis Comment MICROSCOPIC NOT IND. 08/22/2016 3:08pm 2016 3:27pm Glucometer 171 mg/dL H 65-110 08/22/2016 3:40pm 08/22/2016 3:42pm Microbiology Results Procedure Source Organism/Result Collection Date/Time Result Date/Time Result Status Blood Culture Peripheral/Iv Start CULTURE INITIATED - RESULTS PENDING 08/22 4:08pm 08/22/2016 4:11pm Preliminary Name: JOSE ALEJANDRO MERCADO Unit #: [id number] : 1955 Sex: F Admit Date: Loc / Svc: ED Discharge Date: DIAGNOSTIC IMAGING REPORT [id number].REASON: dyspnea PROCEDURE: CHEST 2-VIEWS UPRIGHT (PA \T\ LAT) Encounter: Initial COMPARISON: March 07, 2016 FINDINGS: The lungs are clear without evidence of focal abnormal airspace opacity. There is no pleural effusion or pneumothorax. The heart size, mediastinal contours and pulmonary vascularity are within normal limits. IMPRESSION: No acute cardiopulmonary disease. . Procedures Procedure Status Date Provider(s) Urinalysis auto w/scope Completed 08/01/16 Comprehen metabolic panel Completed 08/02/16 Complete cbc w/auto diff wbc Completed 08/02/16 Encounters Encounter Location Arrival/Admit Date Discharge/Depart Date Attending Provider Departed Emergency Room [facility] 08/22/16 11:55am 08/22/16 6: 42pm JW ARROYO DO Registered [facility] 08/02/16 3:18pm IRINA BORGES II, MD Registered [facility] 08/01/16 2:45pm IRINA BORGES II, MD Recent Diagnosis
--- NOTE | 2016-08-24 15:27 | NUR ---
RADIOLOGY PT TO RADIOLOGY BY CART AT THIS TIME.
--- OUTSIDE RECORDS SUMMARY | 2016-08-24 15:44 | XMS REPORT | Continuity of Care Document ---
Author Author [facility] Organization [facility] Address Unknown Phone Unavailable Support Name Relationship Address Phone KAJAL SANTIAGO MD Caregiver [facility] [address] [place] [address] Unavailable IRINA BORGES II, MD Caregiver [address] [place] [phone] JASWINDER ESCOBEDO MD Caregiver [address] [place] [phone] LYNDA MERCADO Next Of Kin [address] [id number] Insurance Providers Payer Name Policy Number Subscriber Name Relationship Medicare [id number] Jose Alejandro Mercado 18 Self Advance Directives [...] F (96.8 - 99.1) Temperature (Calculated Celsius) 36.45987 degrees C (36.0 - 37.3) Temperature Source [...] Has specimen been collected/obtained? Y Urine Specific [place] May 31, 2014 11:40am <=1.005 L - [...] 04, 2012 11:37am LAB TEST FORM REQUEST [id number] - Turbidity June 04, 2014 4:49am < [...] 9:53am Name: JOSE ALEJANDRO MERCADO Unit #: [id number] : 1955 Sex: F Loc / Svc: MED DOS: 05/28/14 Signed Report #: [id number] DIAGNOSTIC IMAGING REPORT TYPE OF EXAM: CHEST [...] procedures. Encounters Encounter Location Date/Time Discharged Inpatient [facility] 05/28/14 11:21am Recent Diagnosis Influenza B Addisons disease Hypoxemia Dehydration Chest pain Diabetes Hypertension
--- OUTSIDE RECORDS SUMMARY | 2016-08-24 15:44 | XMS REPORT | Continuity of Care Document ---
Author Author [facility] Organization [facility] Address Unknown Phone Unavailable Allergies Active Description [...] 04/12/2013 83.85 CHANGE IN M/T LENGTH NEC Deerk Mayer DO 04/12/2013 84.52 INSERT RECOMBINANT BONE Derek Mayer DO 04/12/2013 Results Encounters ACCT No. Visit Date/Time Discharge Status Pt. Type Provider Facility Loc./Unit Complaint [id number] 04/12/2013 05:22:00 2012 17:30:00 DIS Inpatient Derek Mayer DO [facility] [place] [id number] 04/08/2013 08:28:00 2012 23:59:59 CLS Outpatient Derek Mayer DO [facility]
[2016-08-24] MEDS ORDERED: NORMAL SALINE 500 ML IV ONE (15:45)
[2016-08-24 15:53] LABS: BASOPHILS # (AUTO) 0.1 T/MM3 (0-0.2); BASOPHILS % (AUTO) 0.5 % (0-2); EOSINOPHILS % (AUTO) 0.4 % (0-4); HCT - HEMATOCRIT 39.7 % (36-46); HGB - HEMOGLOBIN 13.1 GM/DL (12-16); IMMATURE GRANULOCYTE # (AUTO) 0.06 T/MM3 (0.00-0.03); IMMATURE GRANULOCYTE % (AUTO) 0.6 % (0.0-0.5); LYMPHOCYTES # (AUTO) 2.3 T/MM3 (1-4.8); LYMPHOCYTES % (AUTO) 22.2 % (23-45); MEAN CORPUSCULAR HGB 29.2 UUG (26-34); MEAN CORPUSCULAR VOLUME 88.4 UM3 (80-100); MEAN PLATELET VOLUME 9.1 UM3 (9.4-12.4); MONOCYTES % (AUTO) 9.7 % (0-9.0); NEUTROPHILS % (AUTO) 66.6 % (33-66); RED BLOOD COUNT 4.49 M/MM3 (4.00-5.20); WBC - WHITE BLOOD COUNT 10.5 T/MM3 (4.5-11.0)
[2016-08-24 16:03] LABS: ALBUMIN 3.7 G/DL (3.5-5.0); ALBUMIN/GLOBULIN RATIO 1.4 RATIO (1.1-2.2); ALKALINE PHOSPHATASE 69 U/L (38-126); ALT (SGPT) 48 U/L (9-52); ANION GAP 24 MEQ/L (5-15); AST (SGOT) 49 U/L (14-36); BUN/CREATININE RATIO 25 RATIO (6-26); CALCIUM 9.3 MG/DL (8.4-10.2); CHLORIDE 99 MEQ/L (98-107); CO2 - CARBON DIOXIDE 16 MEQ/L (22-30); CREATININE 0.6 MG/DL (0.7-1.2); GLOMERULAR FILTRATION RATE 102; GLUCOSE 133 MG/DL (65-110); POTASSIUM 3.2 MEQ/L (3.6-5); SODIUM 139 MEQ/L (134-144); TOTAL PROTEIN 6.3 G/DL (6.3-8.2)
[2016-08-24 16:19] LABS: BLOOD, URINE NEGATIVE (NEGATIVE); COLOR,URINE YELLOW (YELLOW); LEUKOCYTE ESTERASE ,URINE NEGATIVE (NEGATIVE); NITRITE,URINE NEGATIVE (NEGATIVE); UROBILINOGEN,URINE 0.2 EU/DL (NORMAL)
--- NOTE | 2016-08-24 16:19 | ERPDOC ---
Departure Disposition Decision Date: Aug 24, 2016 Disposition Decision Time: 16:20 Disposition: 02 TO [facility] Impression Impression Impression: Primary Impression: Dehydration Additional Impression: Generalized weakness Severity: Moderate Condition: Improved Seen By: Physician only Referrals: IRINA BORGES II, MD (Family) Problems/Meds/Labs Reviewed?: Yes Medications reviewed and manag: Yes Follow up care ordered?: Yes Mental Status: Alert, Oriented HPI - General Medical General Chief Complaint: Fall Stated Complaint: WEAKNESS,FALLS Time Seen by Provider: 15:11 Source: patient Exam Limitations: no limitations HPI - General Medical Initial Comments 61-year-old female presents the emergency department with a chief complaint of generalized weakness. Patient has noted that she has had four near falls in the past 12 hours. Patient has become so weak that she has had to lower herself to the floor on 4 different occasions. After the 4th one at approximately 6 AM today the patient remained on the floor from 6 AM until approximately 3 or 3:30 PM. Patient denies any current pain or discomfort other than a typical headache. Headache is dull. There is no radiation. Patient denies striking her head. Patient denies any neck pain or loss of consciousness. Patient denies any other complaints or associated symptoms. She notes that her symptoms seem to exacerbate with exertion. She was at home when her symptoms began. Symptoms have been persistent in nature since onset. Symptoms have had a gradual progression in nature. Patient was seen and evaluated in the emergency department on August 22 for nausea, vomiting, and diarrhea. The diarrhea has resolved with the nausea and vomiting has persisted. There is no blood in the stool or the emesis. 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 Christine Past Medical History Metabolic: diabetes, hypertension, other ENMT: allergies Respiratory: asthma GI: GERD Female: UTI Neurological: fibromyalgia, neuropathy Musculoskeletal: osteoarthritis Integumentary: melanoma, other Psychological: anxiety, depression, drug abuse Surgical History General: appendix, gallbladder, other, tonsils Reproductive/: hysterectomy Joint: foot Family History Family PMH: FOUND: hypertension Vaccines Hx Influenza Vaccination: No Hx Pneumococcal Vaccination: No Hx Tetanus Diptheria: No Hx Tetanus, Diptheria, Pertuss: No Social History Smoking Status: Never smoker Does patient use chewing tobac: No Second Hand Exposure: No Substance Use Type: does not use Alcohol Intake: occasionally Marital Status: Sexuality: male partner Current Occupational Status: disabled Review of Systems Constitutional Constitutional: weakness (generalized weakness.), DENIES: chills, fever Eyes General: DENIES: erythema, exudate Lids/Accessories: DENIES: erythema, swelling Vision: DENIES: acuity, blurring ENMT Ears: DENIES: drainage, erythema Hearing: DENIES: hearing loss Balance: DENIES: ataxia, falling to one side Sinuses: DENIES: congestion, pain Nose: DENIES: nosebleeds, pain Mouth/Throat: DENIES: painful swallowing, sore throat Teeth: DENIES: pain Jaw: DENIES: pain Cardiovascular Cardiac: DENIES: chest pain, dyspnea on exertion Rhythm/Rate: DENIES: irregular beat, palpitations Vascular: DENIES: pedal edema, unilateral swelling Pulmonary Respiratory: DENIES: cough, dyspnea, pleuritic chest pain, sputum GI Upper Abdomen: DENIES: nausea, pain, vomiting Lower Abdomen: DENIES: diarrhea, pain General: DENIES: dysuria, frequency Musculoskeletal General: DENIES: joint pain, tenderness Integumentary Skin: DENIES: itching, rash Neurological General: headache (typical), weakness (generalized weakness), DENIES: numbness Psychiatric Psychiatric: DENIES: emotional instability, suicidal ideation/attempt Endocrine Endocrine: DENIES: polydipsia, polyphagia Hematologic/Lymphatic Hematologic/Lymphatic: DENIES: frequent nosebleeds, lymphadenopathy Allergic/Immunological Allergic/Immunoligical: DENIES: allergic reactions, hives Physical Exam General General Nourishment: well nourished, well developed, appears stated age, no acute distress, adult General Body Habitus: well groomed Vitals and Pain First Documented Vital Signs Date Time Temp Pulse Resp B/P Pulse Ox O2 Delivery O2 Flow Rate FiO2 08/24/16 15:18 98.3 95 16 153/58 97 Room Air Weight: Kilograms: 87.800 Height (feet): 5 Height (inches): 3.00 Triage Pain Scale: RN VS reviewed by Provider: Yes Normal Exams: Head: Normocephalic w/o trauma Eyes: Pupils are PERRLA w/ EOMI, No scleral icterus, irritation, or foreign bodies noted ENMT: No facial trauma, nasal exudates, pharyngeal erythema, or exudates are noted Dental: No fractured, loose, or missing teeth noted Neck: Full range of motion, without adenopathy, JVD, bruits or thyromegaly Chest/Resp: Clear all gonzalez, with good airflow, and symmetry bilaterally CV: Regular rate and rhythm, without murmur or gallop, Pulses 2+ all extremities, capillary refill, <2 seconds all ext., no pedal edema noted Abdomen: Bowel sounds positive, soft, non-tender, non-distended, no hepatosplenomegaly, masses or bruits noted Lymphatic: No lymphadenopathy, or lymphedema noted Musculoskeletal: No tenderness, or deformity noted, good range of motion, all extremities Integumentary: No rashes, hives, or bruising noted, hair and nails, without abnormality Neurologic: Patient is alert, and oriented, cranial nerves, motor/sensory/ cerebellar, exams w/o gross deficits, to observation Psychiatric: Patient exhibits, appropriate attention, emotion and affect ENMT (brief) Comments Dry Mucous Membranes. Neck (brief) Neck: FOUND: trachea midline, NOT FOUND: tenderness Musculoskeletal (brief) Comments Back - No midline tenderness or deformity. Pelvis - Nontender to compression. stable. Differential Diagnoses Considering: Hypo/Hyperglycemia, Hypo/Hyperkalemia, Hypo/Hypernatremia, Medication Effect, Metabolic, UTI Progress Results/Orders Orders Procedure Category Date Status Time Cbc W/Auto LAB 08/24/16 Complete Diff-Reflex Manual Cmp - Comprehensive LAB 08/24/16 Complete Metabolic Troponin I W LAB 08/24/16 Complete Hemolysis Index EKG EKG 08/24/16 Logged Ua, Dip Wreflex LAB 08/24/16 Complete Microsc & [employer] 15:14 Catheterize For Ua ROCIO 08/24/16 In Process 15:14 Ct Head W/O Contrast CT 08/24/16 Taken 15:14 Ct Cervical Spine W/O CT 08/24/16 Taken Contrast 15:14 Chest 1 View RAD 08/24/16 Taken 15:14 Normal Saline (Ns) PHA 08/24/16 Complete 15:45 Lab Results Laboratory Tests Test 08/24/16 15:47 08/24/16 16:09 White Blood Count 10.5T/MM3 Red Blood Count 4.49M/MM3 Hemoglobin 13.1GM/DL Hematocrit 39.7% Mean Corpuscular Volume 88.4UM3 Mean Corpuscular Hemoglobin 29.2UUG Mean Corpuscular Hemoglobin Concent 33.0GM/DL RDW Standard Deviation 50.0FL Platelet Count 311T/MM3 Mean Platelet Volume 9.1UM3 Immature Granulocyte % (Auto) 0.6% Neutrophils (%) (Auto) 66.6% Lymphocytes (%) (Auto) 22.2% Monocytes (%) (Auto) 9.7% Eosinophils (%) (Auto) 0.4% Basophils (%) (Auto) 0.5% Absolute Immature Granulocyte (auto 0.06T/MM3 Absolute Neutrophils (auto) 7.0T/MM3 Absolute Lymphocytes (auto) 2.3T/MM3 Absolute Monocytes (auto) 1.0T/MM3 Absolute Eosinophils (auto) 0.0T/MM3 Absolute Basophils (auto) 0.1T/MM3 Turbidity < 20 Sodium Level 139MEQ/L Potassium Level 3.2MEQ/L Chloride Level 99MEQ/L Carbon Dioxide Level 16MEQ/L Anion Gap 24MEQ/L Blood Urea Nitrogen 15.0MG/DL Creatinine 0.6MG/DL Glomerular Filtration Rate Calc 102 BUN/Creatinine Ratio 25RATIO Glucose Level 133MG/DL Calculated Osmolality 271MOSM/KG Calcium Level 9.3MG/DL Total Bilirubin 1.00MG/DL Icterus Index < 2 Aspartate Amino Transf (AST/SGOT) 49U/L Alanine Aminotransferase (ALT/SGPT) 48U/L Alkaline Phosphatase 69U/L Troponin I < 0.012ng/ml Total Protein 6.3G/DL Albumin 3.7G/DL Globulin 2.6G/DL Albumin/Globulin Ratio 1.4RATIO Chemistry Specimen Hemolysis < 15 Urine Collection Type Straight cath Urine Color Yellow Urine Turbidity Clear Urine pH 5.5 Urine Specific [place] >=1.030 Urine Protein Trace Urine Glucose (UA) Negative Urine Ketones 3+ Urine Blood Negative Urine Nitrite Negative Urine Bilirubin 2+ Urine Urobilinogen 0.2EU/DL Urine Leukocyte Esterase Negative Urinalysis Comment Microscopic not ind. Medications Current ED Medications Sodium Chloride (NS) 500 ml @ 999 mls/hr Q31M ONCE IV Last administered on 08/24t 16:17; Start 08/24/16 at 15:45; Stop 08/24/16 at 16:15; Status DC Progress Progress Labs/imaging were discussed in detail with the patient and family and questions are answered. Patient was given hydrocortisone 100 mg IV times one. Patient was given 500 mL normal saline intravenously in the emergency Department. She was given anti-emetic medications in the Ed with improvement of symptoms. Patient is admitted to the service of the hospitalist Dr. Ohara in improved condition. Patient and family are in agreement with the current plan of management. No further orders from consulting or accepting physician. Patient will be admitted secondary to frequent falls and generalized weakness. She is not safe to be at home and ambulatory. She cannot care for her basic needs and activities of daily living at home secondary to generalized weakness. EKG EKG : Rate: 60-100 Rhythm: sinus [place]: normal QRS: normal Intervals: normal ST/T: normal Interpreted by: signing physician Xray Xray : Xray: CXR Portable Interpretation: Normal, Interpreted by Me CT CT : CT: Head no contrast Interpretation: Normal (CT Cspine: Patient's motion artifact noted. No obvious deformity or fracture.), Faxed Report JW ARROYO DO Aug 24, 2016 16:19
[2016-08-24] MEDS ORDERED: HYDROCORTISONE 100mg/2ml Injection IV ONE (16:30)
[2016-08-24] MEDS ORDERED: ONDANSETRON 4mg/2ml INJECTION IV ONE (16:30)
--- NOTE | 2016-08-24 16:43 | HPPDOC ---
TINO LYNCH V CASE SUPERVISOR 08/24/16 1643: HPI - Adult Date DATE: 08/24/16 TIME: 16:34 General Chief Complaint: Multiple falls, Dehydration History of Present Illness Gina is a 61 yr old female who is brought to the ER who was brought to the ER today for evaluation of multiple falls, vomiting and weakness. Patient has fallen 4 times in the last 12 hours. She has been vomiting and is unable to keep any fluids down. Other evaluation included lab was obtained. White count 7/ 10 0.5, hemoglobin 13.1, hematocrit 39.7. Sodium is 139, potassium 3.2, anion gap 24, BUN 15, Energy Broker 0.6, glucose 133. Troponin was negative. While in the emergency room. CT scan of the head was obtained showing no acute intracranial abnormalities. A CT scan of the C-spine was also performed revealing mild degenerative changes without obvious cute fracture or injury. Chest Xray reveled no cardiopulmonary findings. Initial blood pressure 153/58, pulse 95, Temp 98.3, R 16, BP 153/58, RA sats 97%. Given multiple falls along with dehydration the hospitalists services were contacted and accepted patient to outpt admission for further evaluation and treatment. Gina is seen on initial examination while still in the emergency room. She is alert and oriented and pleasant. Reports that she has not felt well for the past 2-3 days. Reported that she started having diarrhea on , however, that has now resolved. This morning she had nausea with multiple episodes of vomiting. She reports she has fallen multiple times over the last 12 hours. She attributes this to her chronic lower extremity weakness and myopathy. We did discuss advanced directives and she does wish to be a full code Past Medical History Past Medical History Type II diabetes. 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 Christine Current Medications Home Meds Active Scripts Ondansetron (Zofran Odt) 4 Mg Tab.rapdis, 4 MG PO Q8HR, #7 TAB 0 Refills Orally disintegrating tablet Prov:NOLD,CHERI N CASE SUPERVISOR 08/22/16 Reported Medications Nitrofurantoin Monohyd/M-Cryst (Macrobid 100 mg Capsule) 100 Mg Capsule, 1 CAP PO WB for UTI 08/22/16 Aspirin *EC* (Aspirin EC) 81 Mg Tablet.dr, 81 MG PO HS 08/22/16 Atorvastatin Calcium (Atorvastatin Calcium) 40 Mg Tablet, 40 MG PO HS 04/27/16 Sucralfate (Sucralfate) 1 Gm Tablet, 1 GM PO ACHS 04/27/16 Prednisone (Prednisone) 10 Mg Tablet, 20 MG PO DAILY 04/27/16 Pantoprazole Sodium (Protonix) 40 Mg Tablet.dr, 40 MG PO ACB 04/27/16 Insulin Aspart (Novolog Flexpen) 1 Unit Pen, 8 UNIT SQ TIDWM 04/27/16 Hydrocodone/Apap (Bejou 7.5-325 Tablet) 7.5-325 Tablet, 1 TAB PO HS, #1 TAB 03/04/16 Insulin Glargine,Hum.rec.anlog (Toujeo Solostar) 300 Unit/1 Ml Insuln.pen, 6 UNIT SQ HS 03/04/16 Losartan/Hydrochlorothiazide (Losartan-Hctz 50-12.5 mg Tab) 1 Each Tablet, 1 TAB PO DAILY 11/05/14 Alprazolam (Alprazolam) 0.25 Mg Tab.rapdis, 0.25 MG PO BID Y for ANXIETY 05/28/14 Gabapentin (Gabapentin) 100 Mg Capsule, 200 MG PO BID 09/21/11 Sertraline Hcl (Zoloft) 100 Mg Tablet, 150 MG PO HS 09/21/11 Allergies: Coded Allergies: amoxicillin trihydrate (Verified Allergy, Severe, 08/24/16) meperidine HCl (Verified Allergy, Severe, 08/24/16) potassium clavulanate (Verified Allergy, Severe, 08/24/16) cephalexin (Verified Allergy, Intermediate, RASH, 08/24/16) promethazine (Verified Allergy, Unknown, 08/24/16) Family History Family History: pt adopted Social History Smoking Status: Never smoker Does patient use chewing tobac: No Second Hand Exposure: No Substance Use Type: does not use Alcohol Intake: occasionally Marital Status: Sexuality: male partner Current Occupational Status: disabled Advance Directives: Yes Full Code Social History Comments PCP Dr Barker Review of Systems Constitutional: REPORTS: appetite decrease, fatigue, weakness GI Upper Abdomen: nausea, vomiting Lower Abdomen: diarrhea Neurological Comments Bilateral lower ext weakness Physical Exam General Vital Signs Vital Signs Date Time Temp Pulse Resp B/P Pulse Ox O2 Delivery O2 Flow Rate FiO2 08/24/16 15:18 98.3 95 16 153/58 97 Room Air Height (Feet): 5 Height (Inches): 3.00 Eyes Brief: FOUND: EOMI, PERRL Respiratory Brief: FOUND: clear all gonzalez, equal bilaterally, NOT FOUND: wheezes Cardiovascular (brief) Cardiac Brief: FOUND: regular rate, regular rhythm, NOT FOUND: murmur, pedal edema Abdomen (brief) Abdominal Brief: FOUND: BS normo active x4, soft, NOT FOUND: distended, tender Integumentary (brief) Integumentary Brief: FOUND: dry, pink, warm Neurologic (brief) Neurological Brief: FOUND: cranial 2-12 intact Neurologic RN Documented GCS Eye Opening: (4)Spontaneous Verbal: (5)Oriented Motor: (6)Obeys Commands Total: Psychiatric (brief) FOUND: alert, attentive, normal affect, oriented Laboratory Laboratory Tests Test 08/24/16 15:47 08/24/16 16:09 White Blood Count 10.5T/MM3 Red Blood Count 4.49M/MM3 Hemoglobin 13.1GM/DL Hematocrit 39.7% Mean Corpuscular Volume 88.4UM3 Mean Corpuscular Hemoglobin 29.2UUG Mean Corpuscular Hemoglobin Concent 33.0GM/DL RDW Standard Deviation 50.0FL Platelet Count 311T/MM3 Mean Platelet Volume 9.1UM3 Immature Granulocyte % (Auto) 0.6% Neutrophils (%) (Auto) 66.6% Lymphocytes (%) (Auto) 22.2% Monocytes (%) (Auto) 9.7% Eosinophils (%) (Auto) 0.4% Basophils (%) (Auto) 0.5% Absolute Immature Granulocyte (auto 0.06T/MM3 Absolute Neutrophils (auto) 7.0T/MM3 Absolute Lymphocytes (auto) 2.3T/MM3 Absolute Monocytes (auto) 1.0T/MM3 Absolute Eosinophils (auto) 0.0T/MM3 Absolute Basophils (auto) 0.1T/MM3 Turbidity < 20 Sodium Level 139MEQ/L Potassium Level 3.2MEQ/L Chloride Level 99MEQ/L Carbon Dioxide Level 16MEQ/L Anion Gap 24MEQ/L Blood Urea Nitrogen 15.0MG/DL Creatinine 0.6MG/DL Glomerular Filtration Rate Calc 102 BUN/Creatinine Ratio 25RATIO Glucose Level 133MG/DL Calculated Osmolality 271MOSM/KG Calcium Level 9.3MG/DL Total Bilirubin 1.00MG/DL Icterus Index < 2 Aspartate Amino Transf (AST/SGOT) 49U/L Alanine Aminotransferase (ALT/SGPT) 48U/L Alkaline Phosphatase 69U/L Troponin I < 0.012ng/ml Total Protein 6.3G/DL Albumin 3.7G/DL Globulin 2.6G/DL Albumin/Globulin Ratio 1.4RATIO Chemistry Specimen Hemolysis < 15 Urine Collection Type Straight cath Urine Color Yellow Urine Turbidity Clear Urine pH 5.5 Urine Specific [place] >=1.030 Urine Protein Trace Urine Glucose (UA) Negative Urine Ketones 3+ Urine Blood Negative Urine Nitrite Negative Urine Bilirubin 2+ Urine Urobilinogen 0.2EU/DL Urine Leukocyte Esterase Negative Urinalysis Comment Microscopic not ind. Assessment & Plan Problems: (1) Multiple falls Status: Acute (2) Dehydration Status: Acute (3) Hypokalemia Status: Acute Assessment & Plan: Present on admission (4) Hyperlipidemia Status: Chronic (5) GERD (gastroesophageal reflux disease) Status: Chronic (6) Fibromyalgia Status: Chronic (7) Depression Status: Chronic (8) Asthma Status: Chronic (9) Allergic rhinitis Status: Chronic (10) Anxiety (11) Vestibular neuronitis Status: Acute (12) Diabetes Status: Chronic Qualifiers: Diabetes mellitus type: type 2 (13) Hypertension Status: Chronic (14) Obesity (BMI 35.0-39.9 without comorbidity) Plan/Intensity of Service Admit patient to outpatient observation under the care of Dr. Ohara for dehydration, hypokalemia and multiple falls Continue with IV fluids, normal saline with 20 KCl to run at 100 ML per hour for gentle hydration Patient feels that right foot is having increased redness that some of her metatarsal joints. Will need to monitor carefully for evidence of infectious or ulcers. May consider wound evaluation. Obtain stool for GI panel to rule out infectious etiology Zofran as needed for nausea Patient was given Solu-Cortef 100 milligrams IV in the emergency room. Given her history of Addisons disease Will monitor Accu-Cheks and history of diabetes. Monitor patient. Cardiac telemetry to rule out underlying dysrhythmias SCDs to bilateral lower extremity for DVT prophylaxis Once reconciled home medications need to be reviewed and ordered accordingly Will obtain CBC and BMP tomorrow. Follow blood counts, renal function, electrolytes Will discuss further orders with attending, Dr. Ohara At time of discharge medical care will return to primary care provider, Dr. Barker DVT Prophylaxis: SCD'S Code Status Full Code Hospital Course Summary Disclaimer The hospital course summary below is not to be considered part of the above Progress Note. Hospital Course Summary 08/24 Admit patient to outpatient observation under the care of Dr. Ohara for dehydration, hypokalemia and multiple falls Continue with IV fluids, normal saline with 20 KCl to run at 100 ML per hour for gentle hydration Patient feels that right foot is having increased redness that some of her metatarsal joints. Will need to monitor carefully for evidence of infectious or ulcers. May consider wound evaluation. Obtain stool for GI panel to rule out infectious etiology Zofran as needed for nausea Patient was given Solu-Cortef 100 milligrams IV in the emergency room. Given her history of Addisons disease Will monitor Accu-Cheks and history of diabetes. Monitor patient. Cardiac telemetry to rule out underlying dysrhythmias SCDs to bilateral lower extremity for DVT prophylaxis Once reconciled home medications need to be reviewed and ordered accordingly Will obtain CBC and BMP tomorrow. Follow blood counts, renal function, electrolytes Will discuss further orders with attending, Dr. Ohara At time of discharge medical care will return to primary care provider, MILA Landa MD 08/24/16 5968: Past Medical History Current Medications Home Meds Active Scripts Ondansetron (Zofran Odt) 4 Mg Tab.rapdis, 4 MG PO Q8HR, #7 TAB 0 Refills Orally disintegrating tablet Prov:CHERI FARIAS Flakito LARSON 08/22/16 Reported Medications Nitrofurantoin Monohyd/M-Cryst (Macrobid 100 mg Capsule) 100 Mg Capsule, 1 CAP PO WB for UTI 08/22/16 Aspirin *EC* (Aspirin EC) 81 Mg Tablet., 81 MG PO HS 08/22/16 Atorvastatin Calcium (Atorvastatin Calcium) 40 Mg Tablet, 40 MG PO HS 04/27/16 Sucralfate (Sucralfate) 1 Gm Tablet, 1 GM PO ACHS 04/27/16 Prednisone (Prednisone) 10 Mg Tablet, 20 MG PO DAILY 04/27/16 Pantoprazole Sodium (Protonix) 40 Mg Tablet.dr, 40 MG PO ACB 04/27/16 Insulin Aspart (Novolog Flexpen) 1 Unit Pen, 8 UNIT SQ TIDWM 04/27/16 Hydrocodone/Apap (Bejou 7.5-325 Tablet) 7.5-325 Tablet, 1 TAB PO HS, #1 TAB 03/04/16 Insulin Glargine,Hum.rec.anlog (Toujeo Solostar) 300 Unit/1 Ml Insuln.pen, 6 UNIT SQ HS 03/04/16 Losartan/Hydrochlorothiazide (Losartan-Hctz 50-12.5 mg Tab) 1 Each Tablet, 1 TAB PO DAILY 11/05/14 Alprazolam (Alprazolam) 0.25 Mg Tab.rapdis, 0.25 MG PO BID Y for ANXIETY 05/28/14 Gabapentin (Gabapentin) 100 Mg Capsule, 200 MG PO BID 09/21/11 Sertraline Hcl (Zoloft) 100 Mg Tablet, 150 MG PO HS 09/21/11 Allergies: Coded Allergies: amoxicillin trihydrate (Verified Allergy, Severe, 08/24/16) meperidine HCl (Verified Allergy, Severe, 08/24/16) potassium clavulanate (Verified Allergy, Severe, 08/24/16) cephalexin (Verified Allergy, Intermediate, RASH, 08/24/16) promethazine (Verified Allergy, Unknown, 08/24/16) Assessment & Plan Problems: (1) Multiple falls Status: Acute (2) Dehydration Status: Acute (3) Hypokalemia Status: Acute Assessment & Plan: Present on admission (4) Hyperlipidemia Status: Chronic (5) GERD (gastroesophageal reflux disease) Status: Chronic (6) Fibromyalgia Status: Chronic (7) Depression Status: Chronic (8) Asthma Status: Chronic (9) Allergic rhinitis Status: Chronic (10) Anxiety (11) Vestibular neuronitis Status: Acute (12) Diabetes Status: Chronic Qualifiers: Diabetes mellitus type: type 2 (13) Hypertension Status: Chronic (14) Obesity (BMI 35.0-39.9 without comorbidity) Assessment I have independently evaluated and examined this patient. I reviewed the chart, the patient's history, and the CASE SUPERVISOR's documented findings as above. We discussed and formulated the assessment and plan as above with additions as below: Mrs. Bellamy has had 3-4 days of acute gastroenteritis characterized by nausea , vomiting, and diarrhea. Diarrhea has improved however she's had nausea and vomiting as recently as this morning without hematemesis. She's had minimal oral intake and has developed progressive weakness with buckling of her legs and falls or purposeful lowering herself to the ground to prevent falls. Overall she feels better after fluids were initiated in the emergency room but remains unable to weight-bear. 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 Please note prior foot surgeries were performed by Dr. Derek Mayer. On examination the patient is a talkative cushingoid female with clear lung gonzalez and benign abdominal examination although bowel sounds are diminished. There are multiple small abrasions on the right foot, especially the medial aspect without evidence of cellulitis. The patient describes no awareness of light touch in the right foot or the distal 10 cm of the eaton and only vague awareness of pressure more proximally below the knee. The left foot is without ulcerations. There is bilateral deformity and atrophy of both feet. CT of the head unremarkable by my review, CT cervical spine with motion artifact but no overt evidence of fracture. Chest x-ray NAD by my review. Continue hydration and potassium replacement. Home medications will be restarted with the exception of short acting insulin and losartan/HCTZ. At this time I don't believe continued IV steroids will be needed as blood pressure is controlled and no hyperkalemia present. PT/OT to see patient for evaluation. Unclear that she'll be able to return home tomorrow but may require IRU for strengthening. Check CPK due to duration of time on floor prior to hospitalization. In addition to above diagnoses please add acute gastroenteritis and Haverhill's disease. Plan/Intensity of Service Old records reviewed, laboratory data reviewed, discussed with Dr. Ohara, nursing, and patient's . Laboratory data reviewed. TINO LYNCH APRN Aug 24, 2016 16:43 MILA CHO MD Aug 24, 2016 18:28
--- NOTE | 2016-08-24 16:45 | NUR ---
ROOM ASSIGNMENT PT IS ASSIGNED ROOM 159.
--- OUTSIDE RECORDS SUMMARY | 2016-08-24 16:45 | XMS REPORT | Continuity of Care Document ---
Author Author [facility] Organization [facility] Address Unknown Phone Unavailable Allergies Active [...] Status Pt. Type Provider Facility Loc./Unit Complaint [id number] 04/12/2013 05:22:00 2012 17:30:00 DIS Inpatient Derek Mayer DO [facility] on [address] F8SE [id number] 04/08/2013 08:28:00 2012 23:59:59 CLS Outpatient Derek Mayer DO [facility] on [facility]
--- OUTSIDE RECORDS SUMMARY | 2016-08-24 16:45 | XMS REPORT | Continuity of Care Document ---
Author Author [facility] Organization [facility] Address Unknown Phone Unavailable Support Name Relationship Address Phone KAJAL SANTIAGO MD Caregiver [facility] [address] [place] [address] Unavailable IRINA BORGES II, MD Caregiver [address] [place] [phone] JASWINDER ESCOBEDO MD Caregiver [address] [place] [phone] LYNDA MERCADO Next Of Kin [address] [id number] Insurance Providers Payer Name Policy Number Subscriber Name Relationship Medicare [id number] Jose Aeljandro Mercado 19 Self Advance Directives Directive Response [...] F (96.8 - 99.1) Temperature (Calculated Celsius) 36.91221 degrees C (36.0 - 37.3) Temperature Source [...] Has specimen been collected/obtained? Y Urine Specific [place] May 31, 2014 11:40am <=1.005 L - [...] 04, 2012 11:37am LAB TEST FORM REQUEST [id number] - Turbidity June 04, 2014 4:49am < [...] 9:53am Name: JOSE ALEJANDRO MERCADO Unit #: [id number] : 1955 Sex: F Loc / Svc: MED DOS: 05/28/14 Signed Report #: [id number] DIAGNOSTIC IMAGING REPORT TYPE OF EXAM: CHEST [...]
--- NOTE | 2016-08-24 17:18 | NUR ---
Arrival Patient arrived on unit at this time from ED via cart. Patient moved self from cart to bed with assistance. Patient oriented to unit. Will continue to monitor.
[2016-08-24 17:19] LABS: MAGNESIUM 1.7 MG/DL (1.6-2.3)
[2016-08-24 17:35] VITALS: Ht 160 cm; Wt 89.0 kg
[2016-08-24 17:43] VITALS: BP 147/67; PULSE 87; RESP 16; TEMP 97.6; O2SAT 97
[2016-08-24] MEDS: POTASSIUM CHLORIDE 10 MEQ, LIDOCAINE 1% 10 MG in NORMAL SALINE 100 ML IV SCH ×4 (17:57→20:55)
[2016-08-24] MEDS: NS KCL 20 MEQ 1,000 ML IV SCH (17:57)
[2016-08-24] MEDS ORDERED: INSULIN ASPART 100 UNIT/ML SQ PRN (18:15)
[2016-08-24] MEDS ORDERED: ALPRAZOLAM 0.5 MG TABLET PO PRN (18:15)
[2016-08-24 20:00] VITALS: PULSE 87; RESP 16
[2016-08-24] MEDS: ASPIRIN *EC* 81mg TABLET PO SCH (22:02)
[2016-08-24] MEDS: ATORVASTATIN 40 MG TABLET PO SCH (22:02)
[2016-08-24] MEDS: SUCRALFATE 1 G TABLET PO SCH (22:03)
[2016-08-24] MEDS: GABAPENTIN 100 MG CAPSULE PO SCH (22:03)
[2016-08-24] MEDS: SERTRALINE 100 MG TABLET PO SCH (22:03)
[2016-08-24] MEDS: ONDANSETRON 4mg/2ml INJECTION IV PRN (23:53)
--- NOTE | 2016-08-25 01:28 | NUR ---
STATUS PT ALERT AND ORIENTED X 3. WAS ABLE TO TAKE HER PILLS 1-2 AT TIME. AT 2350 PT CALLED TO STATE SHE FELT NAUSEATED AND REQUEST MED FOR IT. ZOFRAN 4MG WAS GIVEN IVP. PT NEVER DID VOMIT, SHE WAS ABLE TO REST.
[2016-08-25 01:36] VITALS: BP 125/71; PULSE 98; RESP 16; TEMP 98.2; O2SAT 95
[2016-08-25] MEDS: SUCRALFATE 1 G TABLET PO SCH ×4 (06:41→21:23)
[2016-08-25] MEDS: PANTOPRAZOLE 40 MG TABLET PO SCH (06:44)
[2016-08-25 06:56] LABS: BASOPHILS % (AUTO) 0.5 % (0-2); EOSINOPHILS # (AUTO) 0.3 T/MM3 (0-0.5); EOSINOPHILS % (AUTO) 4.7 % (0-4); HCT - HEMATOCRIT 42.8 % (36-46); HGB - HEMOGLOBIN 13.9 GM/DL (12-16); IMMATURE GRANULOCYTE # (AUTO) 0.09 T/MM3 (0.00-0.03); IMMATURE GRANULOCYTE % (AUTO) 1.4 % (0.0-0.5); LYMPHOCYTES # (AUTO) 1.5 T/MM3 (1-4.8); LYMPHOCYTES % (AUTO) 22.9 % (23-45); MEAN CORPUSCULAR HGB 28.6 UUG (26-34); MEAN CORPUSCULAR HGB CONC(MCHC 32.5 GM/DL (31-37); MEAN CORPUSCULAR VOLUME 88.1 UM3 (80-100); MONOCYTES # (AUTO) 0.7 T/MM3 (0-0.8); MONOCYTES % (AUTO) 10.1 % (0-9.0); NEUTROPHILS % (AUTO) 60.4 % (33-66); RED BLOOD COUNT 4.86 M/MM3 (4.00-5.20); WBC - WHITE BLOOD COUNT 6.6 T/MM3 (4.5-11.0)
[2016-08-25 07:00] LABS: ANION GAP 19 MEQ/L (5-15); BUN/CREATININE RATIO 17 RATIO (6-26); CALCIUM 8.4 MG/DL (8.4-10.2); CHLORIDE 107 MEQ/L (98-107); CO2 - CARBON DIOXIDE 17 MEQ/L (22-30); CREATININE 0.6 MG/DL (0.7-1.2); GLOMERULAR FILTRATION RATE 102; GLUCOSE 79 MG/DL (65-110); POTASSIUM 4.3 MEQ/L (3.6-5); SODIUM 143 MEQ/L (134-144)
[2016-08-25 07:56] VITALS: BP 133/74; PULSE 89; RESP 18; TEMP 98.2; O2SAT 98
[2016-08-25] MEDS: NS KCL 20 MEQ 1,000 ML IV SCH (07:58)
--- NOTE | 2016-08-25 09:04 | DI ---
Indication: ITS.REASON: cough PROCEDURE: CHEST 1 VIEW: Encounter: Initial Comparison: August 22, 2016 Findings: The lungs are stable in appearance without new focal airspace consolidation. There is no pleural effusion or pneumothorax. The heart size, pulmonary vascularity and mediastinal contours are unchanged. IMPRESSION: Stable appearance of the chest without acute cardiopulmonary disease. .
--- NOTE | 2016-08-25 09:06 | DI ---
Indication: ITS.REASON: Fall today with head injury, frequent falls PROCEDURE: CT HEAD W/O CONTRAST: Encounter: Initial Comparison: April 27, 2016 Technique: Axial CT images through the head were performed without contrast. Iterative Reconstruction dose reducing technique was utilized. FINDINGS: The ventricles are of normal size, shape, and configuration for the patient's age. There is no evidence of acute intracranial hemorrhage, midline displacement, or mass effect. There are scattered areas of low attenuation in the white matter which most likely represent changes of chronic microvascular ischemia. The CT attenuation of the brain parenchyma is otherwise normal within the cerebellum, brain stem, and cerebral hemispheres. The tympanic cavities and mastoid air cells are free of appreciable disease. There are no definite fractures of the skull base, calvarium, or visualized portion of the midface. IMPRESSION: No CT evidence of acute traumatic intracranial injury. There is a preliminary report by [facility]. .
[2016-08-25] MEDS: NITROFURANTOIN (Macrobid) 100mg CAP PO SCH (09:07)
[2016-08-25] MEDS: PredniSONE 20 MG TABLET PO SCH (09:07)
[2016-08-25] MEDS: GABAPENTIN 100 MG CAPSULE PO SCH ×2 (09:07→20:45)
--- NOTE | 2016-08-25 09:08 | DI ---
Indication: ITS.REASON: Fall today with head injury, frequent fall, PROCEDURE: CT CERVICAL SPINE W/O CONTRAST: Encounter: Initial Comparison: None Technique: Axial CT images through the cervical spine were performed without contrast. Coronal and sagittal reformatted images were also obtained. Automated Exposure Control and Iterative Reconstruction dose reducing techniques were utilized. FINDINGS: Moderate motion artifact. The alignment of the cervical spine is normal. Multilevel degenerative changes are present. There is no gross evidence of acute fracture or subluxation of the cervical spine. The atlantoaxial articulation, dens, and upper cervical spine demonstrate no subluxation. The paraspinal soft tissues and spinal canal appear unremarkable. IMPRESSION: Limited exam due to motion. No gross acute traumatic abnormality of the cervical spine. There is a preliminary report by [facility]. .
[2016-08-25 15:50] VITALS: BP 156/68; PULSE 95; RESP 18; TEMP 97.8; O2SAT 99
--- NOTE | 2016-08-25 15:51 | PNPDOC ---
Subjective Date DATE: 08/25/16 TIME: 15:35 Subjective Mrs. Bellamy was seen this morning and later seen with her at the bedside. She reports to continue to have some nausea overnight but no further emesis or diarrhea. She was tolerating liquids this morning and diet was later advanced. Appetite is poor. She complains of fatigue. She denied dyspnea, fever , chills, or lightheadedness.. She had not been evaluated by physical therapy at time of assessment and her indicated that he feels strongly that it is not safe for her to return home due to her inability to ambulate safely. Patient reports it took for 40 minutes to go up 7 steps several days ago. Objective Vital Signs Vital signs Vital Signs Date Time Temp Pulse Resp B/P Pulse Ox O2 Delivery O2 Flow Rate FiO2 08/25/16 07:56 98.2 89 18 133/74 98 Room Air EXAM General-NAD, alert, fluent speech HEENT-EOMI, conjunctiva clear, sclera anicteric Lungs-respirations nonlabored, good airflow, breath sounds clear anteriorly/ laterally Cardiac-regular rhythm, S1-S2 Abd-soft, nontender, bowel sounds present Ext-without edema Skin-multiple small ulcerations medial right foot, mild erythema over bony prominence left fifth metatarsal but no indication of cellulitis on either foot Musculoskeletal-atrophy of musculature bilateral lower extremities and deformity ankle/feet bilaterally Psych-calm, cooperative, oriented 3 Height (Feet): 5 Height (Inches): 3.00 Weight (Kilograms): 88.000 Laboratory Laboratory Laboratory Tests 08/24/16 15:47 08/25/16 05:41 Laboratory Tests 08/24/16 15:47 08/25/16 05:41 CPK 143 Blood sugars well controlled by Accu-Chek results Assessment & Plan Problems: (1) Multiple falls Status: Acute (2) Ambulatory dysfunction (3) Acute gastroenteritis Status: Resolved (4) Dehydration Status: Resolved (5) Hypokalemia Status: Resolved Assessment & Plan: Present on admission (6) Addisons disease Status: Chronic (7) Hyperlipidemia Status: Chronic (8) GERD (gastroesophageal reflux disease) Status: Chronic (9) Fibromyalgia Status: Chronic (10) Depression Status: Chronic (11) Asthma Status: Chronic (12) Allergic rhinitis Status: Chronic (13) Anxiety (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 Taking po without nausea. No diarrhea or emesis since admission and has not needed antiemetics since just before midnight. However patient's ability to ambulate safely needs to be evaluated before discharge can be considered due to multiple preceding falls. I believe she may be candidate for IRU and strengthening before discharge is considered. Management options reviewed with the patient and her , continue observation at this time pending PT evaluation. Diabetes well controlled with diet. Blood pressure stable-losartan/HCTZ on hold. Home dose prednisone resumed for [place]'s disease. Discussed with social work. Plan/Intensity of Service Laboratory data reviewed, discussed with nursing and social work. Code Status Full Code Hospital Course Summary Disclaimer The hospital course summary below is not to be considered part of the above Progress Note. Hospital Course Summary 08/24 Admit patient to outpatient observation under the care of Dr. Ohara for dehydration, hypokalemia and multiple falls Continue with IV fluids, normal saline with 20 KCl to run at 100 ML per hour for gentle hydration Patient feels that right foot is having increased redness that some of her metatarsal joints. Will need to monitor carefully for evidence of infectious or ulcers. May consider wound evaluation. Obtain stool for GI panel to rule out infectious etiology Zofran as needed for nausea Patient was given Solu-Cortef 100 milligrams IV in the emergency room. Given her history of Addisons disease Will monitor Accu-Cheks and history of diabetes. Monitor patient. Cardiac telemetry to rule out underlying dysrhythmias SCDs to bilateral lower extremity for DVT prophylaxis Once reconciled home medications need to be reviewed and ordered accordingly Will obtain CBC and BMP tomorrow. Follow blood counts, renal function, electrolytes Will discuss further orders with attending, Dr. Ohara At time of discharge medical care will return to primary care provider, Dr. Barker 08/25/16 Hypokalemia corrected and patient has received proximally 3 L of fluid since admission. Taking po without nausea. No diarrhea or emesis since admission and has not needed antiemetics since just before midnight. However patient's ability to ambulate safely needs to be evaluated before discharge can be considered due to multiple preceding falls. I believe she may be candidate for IRU and strengthening before discharge is considered. Management options reviewed with the patient and her , continue observation at this time pending PT evaluation. Diabetes well controlled with diet. Blood pressure stable-losartan/HCTZ on hold. Home dose prednisone resumed for [place]'s disease. Discussed with social work. MILA CHO MD Aug 25, 2016 15:39
--- NOTE | 2016-08-25 17:46 | NUR ---
Shift Summary Patient alert and oriented x3 this shift. VSS. On RA. C/o nerve pain today, stated pain was better after getting neurontin. Patient very fatigued, slept most of the morning and refused to get up to chair when asked. Patient got up to recliner for about an hour this afternoon with assist x2, gb and walker. Patient says she usually just does stand/pivot at home or walks very short distance with walker. Patient refused to eat most of day, drank some juice this morning and had cookie for dinner. No c/o nausea, patient just stated she "didn't feel like eating." This RN encouraged patient to eat, educated on the importance of good nutrition for healing. Patient incontinent of urine today, no BM. Turned q2h in bed. present at bedside today.
[2016-08-25] MEDS: ONDANSETRON 4mg/2ml INJECTION IV PRN (18:14)
[2016-08-25] MEDS: NYSTATIN POWDER 15gm BOTTLE TOP SCH (20:45)
[2016-08-25] MEDS: ASPIRIN *EC* 81mg TABLET PO SCH (21:20)
[2016-08-25] MEDS: ATORVASTATIN 40 MG TABLET PO SCH (21:21)
[2016-08-25] MEDS: SERTRALINE 100 MG TABLET PO SCH (21:23)
[2016-08-25] MEDS ORDERED: INSULIN GLARGINE 100 UNIT/ML SQ SCH (22:00)
[2016-08-26] VITALS: BP 132/69; PULSE 89; RESP 18; TEMP 97.8; O2SAT 97
--- NOTE | 2016-08-26 03:52 | NUR ---
PRN PT REPORTED 8/10 BLE PAIN. SHE REQUESTED TO GET PAIN MEDICATION. PT HAS NO PRN PAIN MED. TELE HOSPITALIST GAVE AN ORDER FOR ONE TIME NORCO 7.5. PT WAS GIVEN PAIN MEDICATION AND REPOSITIONED. WILL CONTINUE TO MONITOR.
[2016-08-26 05:18] LABS: BASOPHILS % (AUTO) 0.2 % (0-2); EOSINOPHILS # (AUTO) 0.1 T/MM3 (0-0.5); EOSINOPHILS % (AUTO) 1.9 % (0-4); HCT - HEMATOCRIT 35.5 % (36-46); HGB - HEMOGLOBIN 11.3 GM/DL (12-16); IMMATURE GRANULOCYTE # (AUTO) 0.05 T/MM3 (0.00-0.03); IMMATURE GRANULOCYTE % (AUTO) 0.8 % (0.0-0.5); LYMPHOCYTES # (AUTO) 1.4 T/MM3 (1-4.8); LYMPHOCYTES % (AUTO) 22.9 % (23-45); MEAN CORPUSCULAR HGB 28.5 UUG (26-34); MEAN CORPUSCULAR HGB CONC(MCHC 31.8 GM/DL (31-37); MEAN CORPUSCULAR VOLUME 89.6 UM3 (80-100); MONOCYTES # (AUTO) 0.6 T/MM3 (0-0.8); MONOCYTES % (AUTO) 9.8 % (0-9.0); NEUTROPHILS #(AUTO)-ABSOLUTE 3.8 T/MM3 (1.8-7.7); NEUTROPHILS % (AUTO) 64.4 % (33-66); RED BLOOD COUNT 3.96 M/MM3 (4.00-5.20); WBC - WHITE BLOOD COUNT 5.9 T/MM3 (4.5-11.0)
[2016-08-26 05:31] LABS: ALBUMIN/GLOBULIN RATIO 1.3 RATIO (1.1-2.2); ALKALINE PHOSPHATASE 57 U/L (38-126); ALT (SGPT) 42 U/L (9-52); ANION GAP 15 MEQ/L (5-15); AST (SGOT) 50 U/L (14-36); BUN/CREATININE RATIO 14 RATIO (6-26); CALCIUM 8.6 MG/DL (8.4-10.2); CHLORIDE 107 MEQ/L (98-107); CO2 - CARBON DIOXIDE 18 MEQ/L (22-30); CREATININE 0.5 MG/DL (0.7-1.2); GLOMERULAR FILTRATION RATE 126; GLUCOSE 69 MG/DL (65-110); POTASSIUM 3.3 MEQ/L (3.6-5); SODIUM 140 MEQ/L (134-144); TOTAL PROTEIN 5.3 G/DL (6.3-8.2)
[2016-08-26] MEDS: PANTOPRAZOLE 40 MG TABLET PO SCH (06:04)
[2016-08-26] MEDS: SUCRALFATE 1 G TABLET PO SCH ×3 (06:04→16:20)
--- NOTE | 2016-08-26 09:18 | NUR ---
IRU referral received. PT/OT evaluations pending. Will continue to follow to determine if patient is appropriate for IRU.
[2016-08-26] MEDS: PredniSONE 20 MG TABLET PO SCH (09:26)
[2016-08-26] MEDS: NITROFURANTOIN (Macrobid) 100mg CAP PO SCH (09:26)
[2016-08-26] MEDS: POTASSIUM CHLORIDE 10 MEQ TABLET PO SCH ×2 (09:26→16:22)
[2016-08-26] MEDS: NYSTATIN POWDER 15gm BOTTLE TOP SCH (09:27)
[2016-08-26] MEDS: GABAPENTIN 100 MG CAPSULE PO SCH (09:27)
[2016-08-26 09:46] VITALS: BP 139/67; PULSE 91; RESP 18; TEMP 97.4; O2SAT 99
--- NOTE | 2016-08-26 12:40 | NUR ---
MIRIAN VELA VISITED WITH PT AND DAUGHTER. CM EXPLAINED ROLE AND PROVIDED CONTACT INFORMATION. PT IS HOPING TO GO TO IRU. CM DISCUSSED ALTERNATIVE PLAN AND CM PLACED A REFERRAL TO [facility]. CM OPENED PORTAL. MIRIAN SPOKE WITH KELLIE FROM [facility] AND SHE WILL CONTACT MIRIAN.
--- NOTE | 2016-08-26 14:06 | PNPDOC ---
Subjective Date DATE: 08/26/16 TIME: 13:59 Subjective F/U: Multiple falls, ambulatory dysfunction. Doing okay today. Oral drive increasing, but not to baseline. Not very hungry; no nausea or ab pain. Breathing stable-not congested or with cough/SOA. No chest pressure or pain. Urinating well. No f/c. Tolerating therapy. Objective Vital Signs Vital signs Vital Signs Date Time Temp Pulse Resp B/P Pulse Ox O2 Delivery O2 Flow Rate FiO2 08/26/16 09:46 97.4 91 18 139/67 99 Room Air Height (Feet): 5 Height (Inches): 3.00 Weight (Kilograms): 89.000 General General Appearance: Alert, Obese, Orientated x 3, Well Nourished, Well Developed, Looks Stated Age Eyes (Brief) Eyes: FOUND: EOMI, PERRL, NOT FOUND: scleral icterus ENMT (Brief) ENMT: FOUND: hearing intact, mucosa moist Neck (Brief) Neck: FOUND: midline, NOT FOUND: nuchal rigidity, spasm Respiratory (Brief) Respiratory: FOUND: clear all gonzalez, equal bilaterally, NOT FOUND: rales, wheezes Cardiovascular (Brief) Cardiac: FOUND: pedal edema (Trace ), regular rate, regular rhythm Abdomen (Brief) Abdominal: FOUND: BS normo active x4, soft, NOT FOUND: distended, tender Extremities (Brief) Extremity : Side: Bilateral Extremity: leg Extremity Finding: FOUND: edema (Trace ), other (scd in place ) Musculoskeletal (Brief) Musculoskeletal: NOT FOUND: deformity, spasm Integumentary (Brief) Integumentary: FOUND: dry, warm Neurologic (Brief) Neurological: FOUND: cranial 2-12 intact, motor (Intact ) Psychiatric (Brief) Psychiatric: FOUND: alert, attentive, normal affect, oriented Laboratory Laboratory Laboratory Tests 08/24/16 15:47 08/25/16 05:41 08/26/16 04:47 Laboratory Tests 08/24/16 15:47 08/25/16 05:41 08/26/16 04:47 Assessment & Plan Problems: (1) Multiple falls Status: Acute (2) Ambulatory dysfunction (3) Acute gastroenteritis Status: Resolved (4) Dehydration Status: Resolved (5) Hypokalemia Status: Acute Assessment & Plan: Present on admission (6) Addisons disease Status: Chronic (7) Hyperlipidemia Status: Chronic (8) GERD (gastroesophageal reflux disease) Status: Chronic (9) Fibromyalgia Status: Chronic (10) Depression Status: Chronic (11) Asthma Status: Chronic (12) Allergic rhinitis Status: Chronic (13) Anxiety (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 BP improving, could restart losartan tomorrow. Add calcium with Vit D BID due to age and chronic prednisone use. Continue with therapy to maximize functional status. Anticipate discharge today - IRU vs SWV Case discussed with CM. Time spent with pt care 25 minutes. DVT Prophylaxis: SCD'S Code Status Full Code Hospital Course Summary Disclaimer The hospital course summary below is not to be considered part of the above Progress Note. Hospital Course Summary 08/24 Admit patient to outpatient observation under the care of Dr. Ohara for dehydration, hypokalemia and multiple falls Continue with IV fluids, normal saline with 20 KCl to run at 100 ML per hour for gentle hydration Patient feels that right foot is having increased redness that some of her metatarsal joints. Will need to monitor carefully for evidence of infectious or ulcers. May consider wound evaluation. Obtain stool for GI panel to rule out infectious etiology Zofran as needed for nausea Patient was given Solu-Cortef 100 milligrams IV in the emergency room. Given her history of Addisons disease Will monitor Accu-Cheks and history of diabetes. Monitor patient. Cardiac telemetry to rule out underlying dysrhythmias SCDs to bilateral lower extremity for DVT prophylaxis Once reconciled home medications need to be reviewed and ordered accordingly Will obtain CBC and BMP tomorrow. Follow blood counts, renal function, electrolytes Will discuss further orders with attending, Dr. Ohara At time of discharge medical care will return to primary care provider, Dr. Barker 08/25/16 Hypokalemia corrected and patient has received proximally 3 L of fluid since admission. Taking po without nausea. No diarrhea or emesis since admission and has not needed antiemetics since just before midnight. However patient's ability to ambulate safely needs to be evaluated before discharge can be considered due to multiple preceding falls. I believe she may be candidate for IRU and strengthening before discharge is considered. Management options reviewed with the patient and her , continue observation at this time pending PT evaluation. Diabetes well controlled with diet. Blood pressure stable-losartan/HCTZ on hold. Home dose prednisone resumed for [place]'s disease. Discussed with social work. 08/26 Doing okay today. Oral drive increasing, but not to baseline. Not very hungry; no nausea or ab pain. Breathing stable-not congested or with cough/SOA. No chest pressure or pain. Urinating well. No f/c. Tolerating therapy. Oral potassium started as 10mEg BID with meals. BP improving, could restart losartan tomorrow. Add calcium with Vit D BID due to age and chronic prednisone use. Continue with therapy to maximize functional status. Anticipate discharge today - IRU vs LINDY HERNANDEZ MD Aug 26, 2016 14:02
[2016-08-26] MEDS ORDERED: CALC-747 PO (15:32)
[2016-08-26] MEDS ORDERED: NYST10PO TOP (15:32)
[2016-08-26] MEDS ORDERED: POTA10TA16 PO (15:32)
--- NOTE | 2016-08-26 15:54 | NUR ---
CM PT HAS BEEN ACCEPTED TO IRU TODAY. PT/FAMILY ARE AWARE. PT IS AWARE TO CONTACT CM IF NEEDS ARISE.
[2016-08-26 15:59] VITALS: BP 145/67; PULSE 95; RESP 14; TEMP 98.5; O2SAT 92
--- NOTE | 2016-08-26 16:00 | NUR ---
Case reviewed with IRU Medical Physiologist Dr. Blankenship. Patient accepted to IRU. CM notified.
--- NOTE | 2016-08-26 17:02 | NUR ---
DISCHARGE PT DISCHARGED TO IRU. REPORT CALLED TO MG JASON. IVL AND TELE DC'D. PT INCONTINENT OF URINE THROUGHOUT THE SHIFT TODAY. SS INSULIN GIVEN ORDERED. PT TRANSFERS WITH 1 ASSIST WALKER AND GAIT BELT. DENIES PAIN. CALLS FOR NEEDS. PT TRANSFERRED TO ROOM 173 ON IRU. BELONGINGS INCLUDING CLOTHES, CLAM SHELL BOOT AND SHOE AND MEDS SENT WITH PT TO IRU.
[2016-08-26] MEDS ORDERED: CALCIUM 600mg + VIT D 400 TABLET PO SCH (21:00)
--- NOTE | 2016-08-27 16:00 | DSF ---
ADMISSION DIAGNOSIS Multiple falls. DISCHARGE DIAGNOSIS Multiple falls. ASSOCIATED CONDITIONS/COMPLICATIONS Ambulatory dysfunction. Acute gastroenteritis - improved. Dehydration. Hypokalemia (present on admission). Dunklin disease. Type 2 diabetes mellitus. Hyperlipidemia. GERD. Fibromyalgia. Depression. Asthma. Allergic rhinitis. Vestibular neuritis. Hypertension. Obesity with BMI 34.8. PROCEDURES None. CONSULTS PT/OT CLINICAL RESUME The patient is a 61-year-old female who presents to [facility] Emergency Room secondary to multiple falls, vomiting and weakness. The patient has fallen four times in the last 12 hours. Recently she has been vomiting and unable to keep fluids down. In emergency room she was evaluated. She did undergo CT scan of brain showing no acute her intracranial abnormalities. CT scan of C-spine showed no acute bony injury. Given her multiple falls and dehydration, hospital services were contacted. Patient was subsequently placed in outpatient observation status for further evaluation and treatment. For complete details of the H&P refer to that document. LABORATORY White blood count is 10.5 with hemoglobin 13.1, hematocrit 39.7, MCV 88.4 and platelets 311,000. Serum sodium is 139, potassium 3.2, chloride 99, CO2 16, anion gap 24, BUN 15 with creatinine 0.6, GFR 102 and blood glucose 133. AST is slightly elevated at 49 with ALT normal at 48. Total CK is 143. Troponin I is less than 0.012. UA reveals elevated specific gravity greater than or equal to 1.030 with trace protein, 3+ ketone, 2+ bilirubin. HOSPITAL COURSE The patient was placed in outpatient observation status at [facility] under the care of Dr. Rene. She was started on normal saline with 20 mEq of potassium at 100 mL/hr to provide hydration. Order for GI panel secondary to diarrhea was obtained. Unfortunately, the patient was unable to produce loose stool compatible for evaluation during the hospitalization. We did have Zofran available as needed for nausea. She was given Solu-Cortef 100 mg IV x 1 in the emergency room due to her history of Dunklin disease. Accu-Cheks were monitored. SCDs were initiated for DVT prophylaxis. Lab was monitored. By hospital day #1 potassium did show interval improvement. There was some hemolysis so most likely some of the elevation of potassium was false. She was taking oral better without nausea, so IV fluids were able to be discontinued. The patient's ambulatory ability was still quite diminished. PT/OT had been consulted but with her coming in over the weekend they were not readily available. Blood sugars were controlled with diet. Blood pressure was stable. Her losartan/HCT was held. By the next hospital day things were still quite stable with her. Her oral drive was increasing. She was not having nausea or vomiting. She was not having diarrhea. White count was normal. Kidney filtration was normal. Vitals were stable and she was afebrile. She was breathing well on room air. She did have opportunity to work with PT/OT. They are recommending continuation of strengthening modalities. IRU screen was placed and patient was deemed a good candidate for IRU. As she was medically doing well, she was able to be discharged to IRU in stable condition. Narrative disclaimer: Above narrative is a brief summary of the patient's hospitalization. For complete details of hospital course, refer to the medical record. DISCHARGE CONDITION Stable/good. DIET 2000 kilocalorie ADA. ACTIVITIES Walker for assistance, increase as able. MEDICATIONS Calcium with vitamin D 600/400 b.i.d. - started secondary to her age and chronic prednisone use. Statin topically b.i.d. x 7 days. Potassium 10 mEq b.i.d. with meals. Alprazolam 0.25 mg b.i.d. p.r.n. anxiety. Aspirin 81 mg q.h.s. Lipitor 40 mg q.h.s. Neurontin 200 mg b.i.d. [place] 7.5/325 one q.h.s. Toujeo 6 units subcu q.h.s. NovoLog 8 units subcutaneously t.i.d. with meals. Losartan/HCT 50/12 0.5 mg daily. Macrobid 100 mg with breakfast. Zofran ODT 4 mg q.8h. p.r.n. Protonix 40 mg a.c. breakfast. Prednisone 20 mg daily. Zoloft 150 mg q.h.s. Carafate 1 g a.c. meals and q.h.s. FOLLOWUP Patient will be followed by Dr. Blankenship for rehabilitation concerns. Hospitalist services will follow patient for medical needs. Definitive hospital followup with Dr. Barker will be made at time of discharge from IRU. INSTRUCTION TO PATIENT Patient was instructed on her diagnosis and treatments provided. She was encouraged to participate well with therapy to maximize strength and functional abilities. We encouraged her on a healthy well-rounded diabetic diet. Encouraged her on medication adherence. Should problems or need occur she could be in contact with the nursing staff at IRU as well as her care providers. She voiced understanding of the above. Time spent with discharge greater than 35 minutes. . DANGELOD
== END 2016-08-26 17:02 ==
LOC: ED 15:08 → EDHOLD 16:25 → INTOOBSV 16:25 → MED 17:18
PROVIDERS: ADMIT Internal Medicine; ATTEND Internal Medicine
DX: E86.0 Dehydration (principal); R29.6 Repeated falls; K52.9 Noninfective gastroenteritis and colitis, unspecified; E87.6 Hypokalemia; R53.1 Weakness; I10 Essential (primary) hypertension; E11.621 Type 2 diabetes mellitus with foot ulcer; L97.511 Non-pressure chronic ulcer of other part of right foot limited to breakdown of skin; J45.909 Unspecified asthma, uncomplicated; E78.5 Hyperlipidemia, unspecified; K21.9 Gastro-esophageal reflux disease without esophagitis; Z87.440 Personal history of urinary (tract) infections; M79.7 Fibromyalgia; F41.9 Anxiety disorder, unspecified; F32.9 Major depressive disorder, single episode, unspecified; E27.1 Primary adrenocortical insufficiency; G89.29 Other chronic pain; H81.20 Vestibular neuronitis, unspecified ear; E66.9 Obesity, unspecified; Z68.34 Body mass index [BMI] 34.0-34.9, adult; R51 Headache; Z79.4 Long term (current) use of insulin; Z79.82 Long term (current) use of aspirin; Z79.899 Other long term (current) drug therapy; W19.XXXA Unspecified fall, initial encounter; Y93.89 Activity, other specified; Y92.018 Other place in single-family (private) house as the place of occurrence of the external cause; Y99.8 Other external cause status
CPT/HCPCS: 36415; 70450; 71010; 72125; 80048; 80053; 81003; 82248; 82550; 82948; 83735; 84484; 85025; 93005; 96365; 96366; 97163; 97167; 97530; 99284; A9270; G0378; G8978; G8979; G8987; G8988; G8989; J1720; J2405; J3480; J7050; J7512; 36000; 99218

== ENCOUNTER 2016-08-26 17:05 | Inpatient (IN) | payer MEDICARE ==
[~2016-08-26] VITALS: Ht 160 cm; Wt 85.5 kg
[~2016-08-26 17:05] MED LIST changes: +CALC-747 PO; +NYST10PO TOP; +POTA10TA16 PO
--- NOTE | 2016-08-26 17:05 | NUR ---
Admit Pt is resting in bed at this time. She is a 64 year old female. Pivot transfers with assist of 1, FWW, and gait belt. Is alert and oriented. Reported discomfort to her feet. See nursing assessment for all skin issues. Family was at bedside. Bed alarm is in use. Addendum: 08/26/16 at 1 by CASIE AGUILAR RN all information for the unit was provided.
[2016-08-26 17:16] VITALS: BP 149/71; PULSE 95; RESP 16; TEMP 98.2; O2SAT 92; Ht 160 cm; Wt 85.5 kg
[2016-08-26 17:30] VITALS: PULSE 95; RESP 16
--- OUTSIDE RECORDS SUMMARY | 2016-08-26 18:20 | XMS REPORT | Continuity of Care Document ---
Author Author [facility] Organization [facility] Address Unknown Phone Unavailable Allergies Active [...] Status Pt. Type Provider Facility Loc./Unit Complaint [id number] 04/12/2013 05:22:00 2012 17:30:00 DIS Inpatient Derek Mayer DO [facility] on [place] F8SE [id number] 04/08/2013 08:28:00 2012 23:59:59 CLS Outpatient Derek Mayer DO [facility] on [facility]
--- OUTSIDE RECORDS SUMMARY | 2016-08-26 18:21 | XMS REPORT | Continuity of Care Document ---
Author Author [facility] Organization [facility] Address Unknown Phone Unavailable Support Name Relationship Address Phone BRENNEN FELIX MD Caregiver [address] [place] [address] Unavailable IRINA BORGES II, MD Caregiver [address] [place] [address] Unavailable MILA CHO MD Caregiver [address] [place] [phone] Unavailable JW ARROYO DO Caregiver [address] [place] [address] Unavailable LYNDA BELLAMY Next Of Kin [address] [place] [address] Insurance Providers Guarantor Jose Alejandro Bellamy Address [address] [place] [address] Email DENIED 08-24-16 Payer Medicare Policy Number [id number] Subscriber's Name Jose Alejandro Bellamy Relationship 19 Self Effective Date 09 Advance Directives Directive Response Recorded Date/Time Advanced Directives Type None 08/24/16 3:31pm Ordered Resuscitation Status Full Code 08/24/16 4:27pm Resuscitation Documents on File No 08/24/16 5:35pm DPOA for Healthcare Only No 08/24/16 5:35pm Living Will No 08/24/16 5:35pm Problems Active Problems Medical Problem Onset Date Status Acute gastroenteritis Unknown Resolved Addisonian crisis Unknown Resolved Addisons disease Unknown Chronic Allergic rhinitis Unknown Chronic Altered mental status Unknown Ambulatory dysfunction Unknown Anemia Unknown Anxiety Unknown Asthma Unknown Chronic Back pain Unknown Cellulitis of left foot Unknown Dehydration Unknown Resolved Depression Unknown Chronic Diabetes Unknown Chronic Duodenal ulcer Unknown Fibromyalgia Unknown Chronic Foot ulcer Unknown GERD (gastroesophageal reflux disease) Unknown Chronic Hyperlipidemia Unknown Chronic Hypertension Unknown Chronic Hypertension, accelerated Unknown Acute Hypokalemia Unknown Acute Insulin dependent diabetes mellitus Unknown Melanoma Unknown Multiple falls Unknown Acute Neuropathy Unknown Chronic Obesity Unknown Chronic Obesity (BMI 30-39.9) Unknown Obesity (BMI 35.0-39.9 without comorbidity) Unknown Chronic Osteoarthritis Unknown Chronic ST elevation (STEMI) myocardial infarction Unknown Vestibular neuronitis Unknown Chronic Past Problems Medical Problem Onset Date Abrasion of knee Unknown Acute encephalopathy Unknown Chest pain Unknown Dehydration Unknown Gastroenteritis Unknown Generalized weakness Unknown Hypokalemia Unknown Hypoxemia Unknown Influenza B Unknown Knee pain Unknown Leg edema, right Unknown Nausea Unknown Pain of right calf Unknown Popliteal cyst Unknown Sepsis Unknown Sepsis Unknown UTI (urinary tract infection) Unknown UTI (urinary tract infection) Unknown Medications Current Home Medications Medication Dose Units Route Directions Days Qty Instructions Start Date Acetaminophen/Hydrocodone Bitart (Grant 7.5-325 Tablet) 7.5-325 Tablet 1 Tab Oral Bedtime 1 Tablet 03/04/16 Alprazolam 0.25 Mg Tab.rapdis 0.25 Mg Oral Twice A Day as needed for Anxiety 05/28/14 Aspirin (Aspirin Ec) 81 Mg Tablet.dr 81 Mg Oral Bedtime 08/22/16 Atorvastatin Calcium 40 Mg Tablet 40 Mg Oral Bedtime 04/27/16 Calcium Carbonate/Vitamin D3 (Calcium 600 + Vit D 400 Tablet) 1 Each Tablet 1 Tab Oral Twice A Day 100 Tablet 08/26/16 Gabapentin 100 Mg Capsule 200 Mg Oral [...] Oral Give With Breakfast for Uti 08/22/16 Nystatin 50,000,000 Unit Powder.ea. 1 Applic Topically Twice A Day 7 Days 08/26/16 Ondansetron (Zofran Odt) 4 Mg Tab.rapdis 4 Mg Oral Q8h @ 0100/0900/1700 7 Tablet Orally disintegrating tablet 08/22/16 Pantoprazole Sodium (Protonix) 40 Mg Tablet.dr 40 Mg Oral Before Breakfast 04/27/16 Potassium Chloride (Klor-Con M10) 10 Meq Tablet 10 Meq Oral Twice Daily With Meals for Hypokalemia 10 Tablet 08/26/16 Prednisone 10 Mg Tablet 20 Mg Oral [...] Problem Response Recorded Date/Time Onset Date Status Knee pain 08/21/2013 4:48pm Unknown Active Reason for Hospitalization Multiple falls 08/26/2016 4:45pm Not Applicable Not Applicable Chewing Tobacco Status No 08/21/2013 3:22pm Not Applicable Not Applicable Hx Substance Use No 08/24/2016 4:29pm Not Applicable Not Applicable Hx Alcohol Use No 08/24/2016 4:29pm Not Applicable Not Applicable Has the pt used tobacco in the last 12 months No 08/24/2016 5:37pm Not Applicable Not Applicable Tobacco Usage none 06/03/2014 3:34pm Not Applicable Not Applicable Query Response Start Date Stop Date Smoking Status Never smoker Hospital Discharge Instructions Instructions: Care Instructions: I was in the hospital because (patient own words): dehydrated and having trouble walking Discharge Diet: 2000 KCAL ADA Discharge Activity: Walker for assitance Follow Up Appointments: Dr Blankenship for Follow for Rehab care F/U with Dr Borges 1 week post discharge from IRU. Pending Lab / Results: No Pending Lab Patient Instructions: Use IS 4-8 times a day. Expected Signs/Symptoms: Improvement of strenght and functional status Notify Physician If: Temp >100.4. During Business Hours:: Nursing staff at IRU After Business Hours:: Nursing staff at IRU Pain Management/Treatment: Tylenol as needed Wound/Incision Care: n/a Condition at time of discharge: Good Plan of Care Discharge Date 08/26/16 5:02pm Disposition 62 TO REHAB UNIT/FACILITY Instructions/Education Provided Dehydration (DC) Prescriptions See Medication Section Additional Instructions/Education Use IS 4-8 times a day. Care Plan and Goals See Discharge Instructions Section Functional Status Query Response Date Recorded Mobility Status Ambulatory w/assist August 24, 2016 5:33pm Assistive Devices Front Wheeled Walker August 24, 2016 5:33pm Activity Limitations Weakness Fatigue August 24, 2016 5:33pm Feeding Ability Independent August 24, 2016 5:33pm Toileting Ability Independent August 24, 2016 5:33pm Grooming Ability Independent August 24, 2016 5:33pm Dressing Ability Independent August 24, 2016 5:33pm Driving Ability Dependent August 24, 2016 5:33pm Housework Ability Assist August 24, 2016 5:33pm Meal Preparation Ability Assist August 24, 2016 5:33pm Stair Climbing Ability Dependent August 24, 2016 5:33pm Ability to complete ADL's impeded by Impaired Mobility August 24, 2016 5:35pm Cognitive/Perceptual Impairments Impaired vision August 24, 2016 5:33pm Visual Assistive Devices Glasses August 24, 2016 5:33pm Preferred Method of Learning Demonstration August 24, 2016 5:33pm Allergies, Adverse Reactions, Alerts Allergen Type Severity Reaction Status Last Updated meperidine HCl Allergy Severe Active 08/24/16 amoxicillin trihydrate Allergy Severe Active 08/24/16 potassium clavulanate Allergy Severe Active 08/24/16 Cephalexin Allergy Intermediate RASH Active 08/24/16 Promethazine Allergy Unknown Active 08/24/16 Immunizations Query Response on File Recorded Date/Time Hx Influenza Vaccination No 08/24/16 5:37pm Hx Pneumococcal Vaccination No 08/24/16 5:37pm Hx Tetanus, Diptheria, Pertussis No 11/19/14 1:41pm Hx Influenza Vaccination No 08/24/16 5:37pm Hx Tetanus Diptheria No 08/24/16 5:00pm Hx Tetanus, Diptheria, Pertussis No 11/19/14 1:41pm Hx Tetanus Toxoid Vaccination No 08/24/16 5:00pm Influenza Vaccine Hx NONE 08/24/16 5:00pm Vital Signs Acute Vital Signs Vital Response Date/Time Temperature (Fahrenheit) 98.5 deg F (96.8 - 99.1) 08/26/2016 3:59pm Temperature (Calculated Celsius) 36.70936 degrees C (36.0 - 37.3) 08/26/2016 3:59pm Pulse Rate (adult) 95 bpm (60 - 100) 08/26/2016 3:59pm Respiratory Rate 14 breaths/min (10 - 20) 08/26/2016 3:59pm O2 Sat by Pulse Oximetry 92 % (90 - 100) 08/26/2016 3:59pm Oxygen Delivery Method Room Air 08/26/2016 3:59pm Oxygen Flow Rate 2.00 L/min 08/22/2016 6:42pm Blood Pressure 145/67 mm Hg 08/26/2016 3:59pm Blood Pressure Source Automatic Cuff 08/26/2016 3:59pm Height (Feet) 5 feet 08/26/2016 2:06pm Height (Inches) 3.00 inches 08/26/2016 2:06pm Weight (Kilograms) 89.000 kg 08/26/2016 9:48am Body Mass Index (BMI) 33.9 08/24/2016 5:35pm Results Laboratory Results Test Name Result Units Flags Reference Collection Date/Time Result Date/ Time Comments Urine WBC 1-3 /HPF 0-5 08/01/2016 2:30pm 08/01/2016 3:19pm Urine RBC 0-1 /HPF 0-3 08/01/2016 2:30pm 08/01/2016 3:19pm Urine Squamous Epithelial Cells 5-10 08/01/2016 2:30pm 08/01/2016 3 :19pm Urine Bacteria TRACE H NEGATIVE 08/01/2016 2:30pm 08/01/2016 3:19pm Urine Culture Indicated CULT NOT INDICATED 08/01/2016 2:30pm 2016 3:19pm Plasma Lactate 0.9 MMOL/L 0.6-2.2 08/22/2016 12:47pm 08/22/2016 6:18pm rerun on fresh specimen new result called to janeen spain Procalcitonin 0.06 NG/ML 08/22/2016 12:47pm 08/22/2016 4:35pm PCT </ =0.5 ng/mL - sepsis not likely; PCT >0.5 and </=2 ng/mL - sepsis possible; PCT >2 ng/mL - sepsis likely; PCT >/=10 ng/mL - systemic inflammatory response - sepsis or septic shock highly indicated. White Blood Count 5.9 T/MM3 4.5-11.0 08/26/2016 4:47am 08/26/2016 5: 51am Red Blood Count 3.96 M/MM3 L 4.00-5.20 08/26/2016 4:47am 08/26/2016 5: 51am Hemoglobin 11.3 GM/DL D L 12-16 08/26/2016 4:47am 08/26/2016 5:51am Hematocrit 35.5 % D L 36-46 08/26/2016 4:47am 08/26/2016 5:51am Mean Corpuscular Volume 89.6 UM3 80-100 08/26/2016 4:47am 08/26/2016 5: 51am Mean Corpuscular Hemoglobin 28.5 UUG 26-34 08/26/2016 4:47am 2016 5:51am Mean Corpuscular Hemoglobin Concent 31.8 GM/DL 31-37 08/26/2016 4:47am 08/26/2016 5:51am RDW Standard Deviation 51.5 FL H 36.9-50.2 08/26/2016 4:47am 08/26/2016 5:51am Platelet Count 221 T/MM3 130-400 08/26/2016 4:47am 08/26/2016 5:51am Mean Platelet Volume 9.0 UM3 L 9.4-12.4 08/26/2016 4:47am 08/26/2016 5: 51am Neutrophils (%) (Auto) 64.4 % 33-66 08/26/2016 4:47am 08/26/2016 5: 51am Lymphocytes (%) (Auto) 22.9 % L 23-45 08/26/2016 4:47am 08/26/2016 5: 51am Monocytes (%) (Auto) 9.8 % H 0-9.0 08/26/2016 4:47am 08/26/2016 5:51am Eosinophils (%) (Auto) 1.9 % 0-4 08/26/2016 4:47am 08/26/2016 5:51am Basophils (%) (Auto) 0.2 % 0-2 08/26/2016 4:47am 08/26/2016 5:51am Immature Granulocyte % (Auto) 0.8 % H 0.0-0.5 08/26/2016 4:47am 2016 5:51am Absolute Neutrophils (auto) 3.8 T/MM3 1.8-7.7 08/26/2016 4:47am 2016 5:51am Absolute Lymphocytes (auto) 1.4 T/MM3 1-4.8 08/26/2016 4:472016 5:51am Absolute Monocytes (auto) 0.6 T/MM3 0-0.8 08/26/2016 4:4708/26/2016 5:51am Absolute Eosinophils (auto) 0.1 T/MM3 0-0.5 08/26/2016 4:472016 5:51am Absolute Basophils (auto) 0.0 T/MM3 0-0.2 08/26/2016 4:4708/26/2016 5:51am Absolute Immature Granulocyte (auto 0.05 T/MM3 H 0.00-0.03 08/26/2016 4: 4708/26/2016 5:51am Icterus Index < 2 0-7 08/26/2016 4:47am 08/26/2016 5:31am Chemistry Specimen Hemolysis < 15 0-25 08/26/2016 4:4708/26/2016 5 :31am 0-25: Specimen Exhibited No Hemolysis. Turbidity < 20 0-20 08/26/2016 4:47am 08/26/2016 5:31am Sodium Level 140 MEQ/L 134-144 08/26/2016 4:47am 08/26/2016 5:31am Potassium Level 3.3 MEQ/L D L 3.6-5 08/26/2016 4:47am 08/26/2016 5:51am Chloride Level 107 MEQ/L 98-107 08/26/2016 4:47am 08/26/2016 5:31am Carbon Dioxide Level 18 MEQ/L L 22-30 08/26/2016 4:4708/26/2016 5: 31am Anion Gap 15 MEQ/L 5-15 08/26/2016 4:47am 08/26/2016 5:31am Blood Urea Nitrogen 7.0 MG/DL 7-17 08/26/2016 4:47am 08/26/2016 5:31am Creatinine 0.5 MG/DL L 0.7-1.2 08/26/2016 4:47am 08/26/2016 5:31am BUN/Creatinine Ratio 14 RATIO 6-26 08/26/2016 4:47am 08/26/2016 5:31am Glomerular Filtration Rate Calc 126 08/26/2016 4:47am 08/26/2016 5: 31am Glucose Level 69 MG/DL 65-110 08/26/2016 4:47am 08/26/2016 5:31am Calculated Osmolality 265 MOSM/KG 261-280 08/26/2016 4:47am 08/26/2016 5:31am Calcium Level 8.6 MG/DL 8.4-10.2 08/26/2016 4:4708/26/2016 5:31am Total Bilirubin 0.70 MG/DL 0.20-1.30 08/26/2016 4:47am 08/26/2016 5: 31am Unconjugated Bilirubin 0.30 MG/DL 0.00-1.10 08/24/2016 3:47pm 2016 5:19pm Conjugated Bilirubin 0.00 MG/DL 0.00-0.30 08/24/2016 3:47pm 08/24/2016 5:19pm Alkaline Phosphatase 57 U/L 38-126 08/26/2016 4:4708/26/2016 5:31am Total Protein 5.3 G/DL L 6.3-8.2 08/26/2016 4:4708/26/2016 5:31am Albumin 3.0 G/DL L 3.5-5.0 08/26/2016 4:4708/26/2016 5:31am Globulin 2.3 G/DL L 2.4-3.6 08/26/2016 4:47am 08/26/2016 5:31am Albumin/Globulin Ratio 1.3 RATIO 1.1-2.2 08/26/2016 4:4708/26/2016 5 :31am Aspartate Amino Transf (AST/SGOT) 50 U/L H 14-36 08/26/2016 4:47am 08/26 5:31am Alanine Aminotransferase (ALT/SGPT) 42 U/L 9-52 08/26/2016 4:47am 08/26 5:31am Total Creatine Kinase 143 U/L H 30-135 08/24/2016 3:47pm 08/24/2016 7: 07pm Troponin I < 0.012 ng/ml 0-0.12 08/24/2016 3:47pm 08/24/2016 4:14pm Troponin values with a difference of 55% increase from orginal troponin value represent a true biological DELTA value. (%increase Calc=Orginal Troponin value, divided by subsequent Troponin value, multiplied by 100) Magnesium Level 1.7 MG/DL 1.6-2.3 08/24/2016 3:47pm 08/24/2016 5:19pm Urine Collection Type STRAIGHT CATH 08/24/2016 4:09pm 08/24/2016 4: 19pm Urine Color YELLOW YELLOW 08/24/2016 4:09pm 08/24/2016 4:19pm Urine Turbidity CLEAR CLEAR 08/24/2016 4:09pm 08/24/2016 4:19pm Urine Specific [place] >=1.030 H 1.015-1.025 08/24/2016 4:09pm 2016 4:19pm Urine pH 5.5 5.0-8.0 08/24/2016 4:09pm 08/24/2016 4:19pm Urine Leukocyte Esterase NEGATIVE NEGATIVE 08/24/2016 4:pm 2016 4:19pm Urine Nitrite NEGATIVE NEGATIVE 08/24/2016 4:pm 08/24/2016 4:19pm Urine Protein TRACE A NEGATIVE 08/24/2016 4:pm 08/24/2016 4:19pm Urine Glucose (UA) NEGATIVE NEGATIVE 08/24/2016 4:pm 08/24/2016 4: 19pm Urine Ketones 3+ A NEGATIVE 08/24/2016 4:09pm 08/24/2016 4:19pm Urine Urobilinogen 0.2 EU/DL NORMAL 08/24/2016 4:09pm 08/24/2016 4: 19pm Urine Bilirubin 2+ A NEGATIVE 08/24/2016 4:09pm 08/24/2016 4:19pm Urine Blood NEGATIVE NEGATIVE 08/24/2016 4:09pm 08/24/2016 4:19pm Urinalysis Comment MICROSCOPIC NOT IND. 08/24/2016 4:09pm 2016 4:19pm Glucometer 206 mg/dL H 65-110 08/26/2016 2:06pm 08/26/2016 2:08pm Microbiology Results Procedure Source Organism/Result Collection Date/Time Result Date/Time Result Status Blood Culture Peripheral/Iv Start NO GROWTH AFTER 4 DAYS 08/22/2016 4:08pm 08/26/2016 4:10pm Preliminary Name: JOSE ALEJANDRO BELLAMY Unit #: [id number] : 1955 Sex: F Admit Date: 08/24/16 Loc / Svc: MED Discharge Date: DIAGNOSTIC IMAGING REPORT Report #: [id number] [facility] Najera SHERRI Indication: ITS.REASON: Fall today with head injury, frequent fall, PROCEDURE: CT CERVICAL SPINE W/O CONTRAST: Encounter: Initial Comparison: None Technique: Axial CT images through the cervical spine were performed without contrast. Coronal and sagittal reformatted images were also obtained. Automated Exposure Control and Iterative Reconstruction dose reducing techniques were utilized. FINDINGS: Moderate motion artifact. The alignment of the cervical spine is normal. Multilevel degenerative changes are present. There is no gross evidence of acute fracture or subluxation of the cervical spine. The atlantoaxial articulation, dens, and upper cervical spine demonstrate no subluxation. The paraspinal soft tissues and spinal canal appear unremarkable. IMPRESSION: Limited exam due to motion. No gross acute traumatic abnormality of the cervical spine. There is a preliminary report by [email or web address]. . Procedures Procedure Status Date Provider(s) Urinalysis auto w/scope Completed 08/01/16 Comprehen metabolic panel Completed 08/02/16 Complete cbc w/auto diff wbc Completed 08/02/16 Routine venipuncture Completed 08/22/16 Routine venipuncture Completed 08/22/16 Chest x-ray 2vw frontal&latl Completed 08/22/16 Comprehen metabolic panel Completed 08/22/16 Urinalysis auto w/o scope Completed 08/22/16 Reagent strip/blood glucose Completed 08/22/16 Reagent strip/blood glucose Completed 08/22/16 Reagent strip/blood glucose Completed 08/22/16 Assay of lactic acid Completed 08/22/16 Procalcitonin (pct) Completed 08/22/16 Assay of troponin quant Completed 08/22/16 Complete cbc w/auto diff wbc Completed 08/22/16 Blood culture for bacteria Completed 08/22/16 Blood culture for bacteria Completed 08/22/16 Electrocardiogram tracing Completed 08/22/16 Hydrate iv infusion add-on Completed 08/22/16 Ther/proph/diag inj iv push Completed 08/22/16 Tx/pro/dx inj new drug addon Completed 08/22/16 Tx/pro/dx inj new drug addon Completed 08/22/16 Emergency dept visit Completed 08/22/16 [id number] ITEM OR SERVICE Completed 08/22/16 565417"INJECTION, ONDANSETRON HYDROCHLORIDE, PER 1 MG" Completed 08/22/16 105135"INJECTION, METOCLOPRAMIDE HCL, UP TO 10 MG" Completed 08/22/16 [id number]"INFUSION, NORMAL SALINE SOLUTION , 1000 CC" Completed 08/22/16 Encounters Encounter Location Arrival/Admit Date Discharge/Depart Date Attending Provider Discharged Inpatient (obs) [facility] 08/24/16 4:25pm 08/26/16 5: 02pm MILA CHO MD Departed Emergency Room [facility] 08/22/16 11:55am 08/22/16 6: 42pm JW ARROYO DO Registered [facility] 08/02/16 3:18pm IRINA BORGES II, MD Registered [facility] 08/01/16 2:45pm IRINA BORGES II, MD
--- OUTSIDE RECORDS SUMMARY | 2016-08-26 18:21 | XMS REPORT | Continuity of Care Document ---
Author Author [facility] Organization [facility] Address Unknown Phone Unavailable Support Name Relationship Address Phone KAJAL SNATIAGO MD Caregiver [facility] [address] [place] [place] [address] Unavailable IRINA BORGES II, MD Caregiver [address] [place] [phone] JASWINDER ESCOBEDO MD Caregiver [address] [place] [phone] LYNDA MERCADO Next Of Kin [address] [id number] Insurance Providers Payer Name Policy Number Subscriber Name Relationship Medicare [id number] Jose Alejandro Mercado 19 Self Advance Directives [...] F (96.8 - 99.1) Temperature (Calculated Celsius) 36.72067 degrees C (36.0 - 37.3) Temperature Source [...] Has specimen been collected/obtained? Y Urine Specific [place] May 31, 2014 11:40am <=1.005 L - [...] 04, 2012 11:37am LAB TEST FORM REQUEST [id number] - Turbidity June 04, 2014 4:49am < [...] 9:53am Name: JOSE ALEJANDRO MERCADO Unit #: [id number] : 1955 Sex: F Loc / Svc: MED DOS: 05/28/14 Signed Report #: [id number] DIAGNOSTIC IMAGING REPORT TYPE OF EXAM: CHEST [...] procedures. Encounters Encounter Location Date/Time Discharged Inpatient [facility] 05/28/14 11:21am Recent Diagnosis Influenza B Addisons disease Hypoxemia Dehydration Chest pain Diabetes Hypertension
--- NOTE | 2016-08-26 19:21 | NUR ---
Shift Summary Pt is resting in bed at this time. Ambulates with assist of 1, FWW, and gait belt. Did not eat for dinner, reported that she was not hungry. Pt was oriented to the unit and what the flow is. When in bed the alarm is in use and call light is within reach.
[2016-08-26] MEDS ORDERED: PRN ORDERS MC (20:00)
[2016-08-26] MEDS ORDERED: ALPRAZOLAM 0.25 MG TABLET PO PRN (20:00)
[2016-08-26] MEDS: NYSTATIN POWDER 15gm BOTTLE TOP SCH (21:40)
[2016-08-26] MEDS: GABAPENTIN 100 MG CAPSULE PO SCH (21:41)
[2016-08-26] MEDS: CALCIUM 600mg + VIT D 400 TABLET PO SCH (21:41)
[2016-08-26] MEDS: ATORVASTATIN 40 MG TABLET PO SCH (21:42)
[2016-08-26] MEDS: SUCRALFATE 1 G TABLET PO SCH (21:42)
[2016-08-26] MEDS: SERTRALINE 100 MG TABLET PO SCH (21:49)
[2016-08-26] MEDS: DOCUSATE SODIUM 100 MG CAPSULE PO SCH (21:57)
[2016-08-26] MEDS ORDERED: INSULIN GLARGINE HUM REC ANLOG 6 UNIT SQ SCH (22:00)
[2016-08-26] MEDS: ASPIRIN *EC* 81mg TABLET PO SCH (22:18)
[2016-08-26 22:45] VITALS: PULSE 82; RESP 18; O2SAT 95
[2016-08-26 23:07] VITALS: BP 147/80; PULSE 91; RESP 16; TEMP 98.5; O2SAT 92
[2016-08-27] MEDS: ONDANSETRON ODT 4 MG TAB PO SCH ×3 (01:22→17:30)
[2016-08-27 05:45] LABS: ANION GAP 13 MEQ/L (5-15); BUN/CREATININE RATIO 14 RATIO (6-26); CALCIUM 9.2 MG/DL (8.4-10.2); CHLORIDE 104 MEQ/L (98-107); CO2 - CARBON DIOXIDE 23 MEQ/L (22-30); CREATININE 0.5 MG/DL (0.7-1.2); GLOMERULAR FILTRATION RATE 126; GLUCOSE 81 MG/DL (65-110); POTASSIUM 3.4 MEQ/L (3.6-5); SODIUM 140 MEQ/L (134-144)
[2016-08-27 05:53] LABS: BASOPHILS % (AUTO) 0.4 % (0-2); EOSINOPHILS # (AUTO) 0.1 T/MM3 (0-0.5); EOSINOPHILS % (AUTO) 1.7 % (0-4); HCT - HEMATOCRIT 35.6 % (36-46); HGB - HEMOGLOBIN 11.6 GM/DL (12-16); IMMATURE GRANULOCYTE # (AUTO) 0.05 T/MM3 (0.00-0.03); IMMATURE GRANULOCYTE % (AUTO) 0.9 % (0.0-0.5); LYMPHOCYTES # (AUTO) 1.4 T/MM3 (1-4.8); LYMPHOCYTES % (AUTO) 26.9 % (23-45); MEAN CORPUSCULAR HGB 28.7 UUG (26-34); MEAN CORPUSCULAR HGB CONC(MCHC 32.6 GM/DL (31-37); MEAN CORPUSCULAR VOLUME 88.1 UM3 (80-100); MEAN PLATELET VOLUME 9.5 UM3 (9.4-12.4); MONOCYTES # (AUTO) 0.5 T/MM3 (0-0.8); MONOCYTES % (AUTO) 9.5 % (0-9.0); NEUTROPHILS #(AUTO)-ABSOLUTE 3.2 T/MM3 (1.8-7.7); NEUTROPHILS % (AUTO) 60.6 % (33-66); RED BLOOD COUNT 4.04 M/MM3 (4.00-5.20); WBC - WHITE BLOOD COUNT 5.3 T/MM3 (4.5-11.0)
[2016-08-27] MEDS: SUCRALFATE 1 G TABLET PO SCH ×4 (06:10→21:04)
[2016-08-27] MEDS: PANTOPRAZOLE 40 MG TABLET PO SCH ×2 (06:11→07:30)
--- NOTE | 2016-08-27 07:37 | NUR ---
Summary Pt verbalized anxiety about starting therapy but stated that she was "ready to work hard". Pt ambulated to the BR once last night but became weak once to the toilet. Pt utilized WC with pivot transfer to return to bed. Pt denied pain through the night and is up with therapy at this time.
[2016-08-27 08:00] VITALS: BP 126/63; PULSE 85; RESP 16; TEMP 97.8; O2SAT 95
[2016-08-27] MEDS ORDERED: INSULIN ASPART 100 UNIT/ML SQ SCH (08:00)
[2016-08-27] MEDS: LOSARTAN-HCTZ 50-12.5 MG TAB PO SCH (09:14)
[2016-08-27] MEDS: POTASSIUM CHLORIDE 10 MEQ TABLET PO SCH ×2 (09:14→17:30)
[2016-08-27] MEDS: GABAPENTIN 100 MG CAPSULE PO SCH ×2 (09:15→21:03)
[2016-08-27] MEDS: CALCIUM 600mg + VIT D 400 TABLET PO SCH ×2 (09:15→21:03)
[2016-08-27] MEDS: DOCUSATE SODIUM 100 MG CAPSULE PO SCH ×2 (09:15→21:03)
[2016-08-27] MEDS: NITROFURANTOIN (Macrobid) 100mg CAP PO SCH (09:15)
[2016-08-27] MEDS: PredniSONE 20 MG TABLET PO SCH (09:15)
[2016-08-27] MEDS: NYSTATIN POWDER 15gm BOTTLE TOP SCH ×2 (09:23→21:03)
--- NOTE | 2016-08-27 10:56 | CONSPD ---
TINO LYNCH V NURSE AIDE EVALUATOR 08/27/16 1045: Consultation Info Date DATE: 08/27/16 TIME: 10:32 Date of Consultation: Aug 27, 2016 Attending Physician: Guevara Reason for Consultation: DM, HTN, Nausea HPI - Adult Date DATE: 08/27/16 TIME: 10:32 General Chief Complaint: weakness, multiple falls History of Present Illness Gina is a 61-year-old female who is well known to the hospitalist services as she was admitted on 08/24/16 following a fall with dehydration. She was started on Macrobid for a UTI and given IV hydration. Because of her ongoing weakness of the lower extremities and continued multiple falls she was accepted to the inpatient rehabilitation unit for ongoing strengthening. The WBC count is normal at 5.3, hemoglobin 11.6, hematocrit 35.6, platelet count 218. Sodium is 140, potassium slightly low at 3.4, BUN 7, creatinine 0.6, glucose 81. Gina is seen this morning at the breakfast table. She complains of having nausea and feels that she is unable to eat. She reports this has been a ongoing problem for 8 months. She reports she has lost 60lbs. She does indicate that she has a known ulcer and does take Carafate and Protonix regularly. 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 Christine Current Medications Home Meds Active Scripts Potassium Chloride (Klor-Con M10) 10 Meq Tablet, 10 MEQ PO BIDWM for hypokalemia , #10 TAB Prov:LINDY WOODSON MD 08/26/16 Calcium Carbonate/Vitamin D3 (Calcium 600 + Vit D 400 Tablet) 1 Each Tablet, 1 TAB PO BID, #100 TAB Prov:LINDY WOODSON MD 08/26/16 Nystatin (Nystatin) 50,000,000 Unit Powder.ea., 1 APPLIC TOP BID for 7 Days Prov:LINDY WOODSON MD 08/26/16 Ondansetron (Zofran Odt) 4 Mg Tab.rapdis, 4 MG PO Q8HR, #7 TAB 0 Refills Orally disintegrating tablet Prov:CHERI FARIAS NURSE AIDE EVALUATOR 08/22/16 Reported Medications Nitrofurantoin Monohyd/M-Cryst (Macrobid 100 mg Capsule) 100 Mg Capsule, 1 CAP PO WB for UTI 08/22/16 Aspirin *EC* (Aspirin EC) 81 Mg Tablet.dr, 81 MG PO HS 08/22/16 Atorvastatin Calcium (Atorvastatin Calcium) 40 Mg Tablet, 40 MG PO HS 04/27/16 Sucralfate (Sucralfate) 1 Gm Tablet, 1 GM PO ACHS 04/27/16 Prednisone (Prednisone) 10 Mg Tablet, 20 MG PO DAILY 04/27/16 Pantoprazole Sodium (Protonix) 40 Mg Tablet.dr, 40 MG PO ACB 04/27/16 Insulin Aspart (Novolog Flexpen) 1 Unit Pen, 8 UNIT SQ TIDWM 04/27/16 Hydrocodone/Apap ([place] 7.5-325 Tablet) 7.5-325 Tablet, 1 TAB PO HS, #1 TAB 03/04/16 Insulin Glargine,Hum.rec.anlog (Toujeo Solostar) 300 Unit/1 Ml Insuln.pen, 6 UNIT SQ HS 03/04/16 Losartan/Hydrochlorothiazide (Losartan-Hctz 50-12.5 mg Tab) 1 Each Tablet, 1 TAB PO DAILY 11/05/14 Alprazolam (Alprazolam) 0.25 Mg Tab.rapdis, 0.25 MG PO BID Y for ANXIETY 05/28/14 Gabapentin (Gabapentin) 100 Mg Capsule, 200 MG PO BID 09/21/11 Sertraline Hcl (Zoloft) 100 Mg Tablet, 150 MG PO HS 09/21/11 Allergies: Coded Allergies: amoxicillin trihydrate (Verified Allergy, Severe, 08/24/16) meperidine HCl (Verified Allergy, Severe, 08/24/16) potassium clavulanate (Verified Allergy, Severe, 08/24/16) cephalexin (Verified Allergy, Intermediate, RASH, 08/24/16) promethazine (Verified Allergy, Unknown, 08/24/16) Family History Family History: pt adopted Social History Does patient use chewing tobac: No Second Hand Exposure: No Substance Use Type: does not use Alcohol Intake: occasionally Marital Status: Sexuality: male partner Current Occupational Status: disabled Advance Directives: Yes Full Code, No DPOA for Healthcare Only Social History Comments PCP - Dr Barker Review of Systems Constitutional: REPORTS: appetite decrease, fatigue, weakness GI Upper Abdomen: nausea All Other Systems All Other Systems: Reviewed (remainder of 10-point ROS Neg.) Physical Exam General General Nourishment: well nourished, well developed Vital Signs Vital Signs Date Time Temp Pulse Resp B/P Pulse Ox O2 Delivery O2 Flow Rate FiO2 08/26/16 23:07 98.5 91 16 147/80 92 Room Air Height (Feet): 5 Height (Inches): 3.00 ENMT Brief: FOUND: mucosa moist, normal dentition, NOT FOUND: pharnyx erythema Respiratory Brief: FOUND: clear all gonzalez, equal bilaterally, NOT FOUND: wheezes Cardiovascular (brief) Cardiac Brief: FOUND: regular rate, regular rhythm, NOT FOUND: murmur Abdomen (brief) Abdominal Brief: NOT FOUND: BS normo active x4 (Hypoactive bowel sounds) Integumentary (brief) Integumentary Brief: FOUND: dry, pink, warm Neurologic (brief) Neurological Brief: FOUND: cranial 2-12 intact Neurologic RN Documented GCS Eye Opening: Verbal: Motor: Total: Psychiatric (brief) FOUND: alert, attentive, normal affect, oriented Laboratory Laboratory Tests Test 08/26/16 22:26 08/27/16 04:56 08/27/16 06:08 Glucometer 97mg/dL 71mg/dL White Blood Count 5.3T/MM3 Red Blood Count 4.04M/MM3 Hemoglobin 11.6GM/DL Hematocrit 35.6% Mean Corpuscular Volume 88.1UM3 Mean Corpuscular Hemoglobin 28.7UUG Mean Corpuscular Hemoglobin Concent 32.6GM/DL RDW Standard Deviation 50.1FL Platelet Count 218T/MM3 Mean Platelet Volume 9.5UM3 Immature Granulocyte % (Auto) 0.9% Neutrophils (%) (Auto) 60.6% Lymphocytes (%) (Auto) 26.9% Monocytes (%) (Auto) 9.5% Eosinophils (%) (Auto) 1.7% Basophils (%) (Auto) 0.4% Absolute Immature Granulocyte (auto 0.05T/MM3 Absolute Neutrophils (auto) 3.2T/MM3 Absolute Lymphocytes (auto) 1.4T/MM3 Absolute Monocytes (auto) 0.5T/MM3 Absolute Eosinophils (auto) 0.1T/MM3 Absolute Basophils (auto) 0.0T/MM3 Turbidity < 20 Sodium Level 140MEQ/L Potassium Level 3.4MEQ/L Chloride Level 104MEQ/L Carbon Dioxide Level 23MEQ/L Anion Gap 13MEQ/L Blood Urea Nitrogen 7.0MG/DL Creatinine 0.5MG/DL Glomerular Filtration Rate Calc 126 BUN/Creatinine Ratio 14RATIO Glucose Level 81MG/DL Calculated Osmolality 266MOSM/KG Calcium Level 9.2MG/DL Icterus Index < 2 Chemistry Specimen Hemolysis < 15 Impression/Recommendation Problems: (1) Ambulatory dysfunction Status: Acute (2) UTI (urinary tract infection) Status: Acute (3) Insulin dependent diabetes mellitus Status: Chronic (4) Duodenal ulcer Status: Chronic (5) Neuropathy Status: Chronic (6) Asthma Status: Chronic (7) Addisons disease Status: Chronic (8) GERD (gastroesophageal reflux disease) Status: Chronic (9) Hyperlipidemia Status: Chronic (10) Allergic rhinitis Status: Chronic (11) Depression Status: Chronic (12) Fibromyalgia Status: Chronic (13) Anxiety (14) Back pain Status: Chronic Recommendation Agree with admission to inpatient rehabilitation unit under the care of Dr. Blankenship for weakness and ambulatory dysfunction. The hospitalist services will follow patient to manage her multiple existing comorbidities. In regards to her diabetes place patient on sliding scale insulin due to decreased oral intake. If oral intake improves, can consider adding long-acting insulin. Would recommend Lantus 5 units at at bedtime. In regards to ongoing nausea. Will continue with scheduled Carafate and Protonix. Given the patient has a known history of ulcers. Will try adding scheduled Reglan as this may help with nausea. If she has symptoms of gastroparesis. Continue to monitor blood pressure closely and continue on Hyzaar, Continue Macrobid for treatment of UTI. End darío 08/30 Continue to follow. Hypokalemia. Continue on oral supplementation. K today 3.4 Encourage work with PT/OT for ongoing strengthening of lower extremities and improved function. Will recheck BMP on 08/29. Hospitalist services will continue to follow patient for medical management. At time of discharge medical care will return to primary care provider, LINDY Mcdermott MD 08/27/16 1831: Past Medical History Current Medications Home Meds Active Scripts Potassium Chloride (Klor-Con M10) 10 Meq Tablet, 10 MEQ PO BIDWM for hypokalemia , #10 TAB Prov:LINDY WOODSON MD 08/26/16 Calcium Carbonate/Vitamin D3 (Calcium 600 + Vit D 400 Tablet) 1 Each Tablet, 1 TAB PO BID, #100 TAB Prov:LINDY WOODSON MD 08/26/16 Nystatin (Nystatin) 50,000,000 Unit Powder.ea., 1 APPLIC TOP BID for 7 Days Prov:LINDY WOODSON MD 08/26/16 Ondansetron (Zofran Odt) 4 Mg Tab.rapdis, 4 MG PO Q8HR, #7 TAB 0 Refills Orally disintegrating tablet Prov:JOI FARIASPing Fraga NURSE AIDE EVALUATOR 08/22/16 Reported Medications Nitrofurantoin Monohyd/M-Cryst (Macrobid 100 mg Capsule) 100 Mg Capsule, 1 CAP PO WB for UTI 08/22/16 Aspirin *EC* (Aspirin EC) 81 Mg Tablet.dr, 81 MG PO HS 08/22/16 Atorvastatin Calcium (Atorvastatin Calcium) 40 Mg Tablet, 40 MG PO HS 04/27/16 Sucralfate (Sucralfate) 1 Gm Tablet, 1 GM PO ACHS 04/27/16 Prednisone (Prednisone) 10 Mg Tablet, 20 MG PO DAILY 04/27/16 Pantoprazole Sodium (Protonix) 40 Mg Tablet.dr, 40 MG PO ACB 04/27/16 Insulin Aspart (Novolog Flexpen) 1 Unit Pen, 8 UNIT SQ TIDWM 04/27/16 Hydrocodone/Apap ([place] 7.5-325 Tablet) 7.5-325 Tablet, 1 TAB PO HS, #1 TAB 03/04/16 Insulin Glargine,Hum.rec.anlog (Toujeo Solostar) 300 Unit/1 Ml Insuln.pen, 6 UNIT SQ HS 03/04/16 Losartan/Hydrochlorothiazide (Losartan-Hctz 50-12.5 mg Tab) 1 Each Tablet, 1 TAB PO DAILY 11/05/14 Alprazolam (Alprazolam) 0.25 Mg Tab.rapdis, 0.25 MG PO BID Y for ANXIETY 05/28/14 Gabapentin (Gabapentin) 100 Mg Capsule, 200 MG PO BID 09/21/11 Sertraline Hcl (Zoloft) 100 Mg Tablet, 150 MG PO HS 09/21/11 Allergies: Coded Allergies: amoxicillin trihydrate (Verified Allergy, Severe, 08/24/16) meperidine HCl (Verified Allergy, Severe, 08/24/16) potassium clavulanate (Verified Allergy, Severe, 08/24/16) cephalexin (Verified Allergy, Intermediate, RASH, 08/24/16) promethazine (Verified Allergy, Unknown, 08/24/16) Impression/Recommendation Problems: (1) Ambulatory dysfunction Status: Acute (2) Insulin dependent diabetes mellitus Status: Chronic (3) Duodenal ulcer Status: Chronic (4) Neuropathy Status: Chronic (5) Asthma Status: Chronic (6) Addisons disease Status: Chronic (7) GERD (gastroesophageal reflux disease) Status: Chronic (8) Hyperlipidemia Status: Chronic (9) Allergic rhinitis Status: Chronic (10) Depression Status: Chronic (11) Fibromyalgia Status: Chronic (12) Anxiety (13) Back pain Status: Chronic Recommendation Have independently interviewed and examined pt. Chart reviewed. Case discussed with my NURSE AIDE EVALUATOR. Care plan developed with my supervision; agree with above. Doing better-tolerating therapy. Hard work, but feels making gains. Notes persistent nausea. Stools slow - last one on the 9th. Breathing well. No chest pain. Lungs: clear CV: regular Ab; soft nt/nd MSE: awake alert Plan: Agree with admission to IRU to help maximize functional status. Encourage therapy. Monitor sugars - short acting insulin on hold. Can continue long acting insulin. Medically stable for IRU floor activity. TINO LYNCH APRN Aug 27, 2016 10:45 LINDY WOODSON MD Aug 27, 2016 18:31
[2016-08-27] MEDS: METOCLOPRAMIDE 5mg TABLET PO SCH ×3 (11:42→21:04)
--- NOTE | 2016-08-27 14:31 | HPPDOC ---
HPI Date DATE: 08/27/16 TIME: 14:27 General Chief Complaint: weakness, multiple falls History of Present Illness 61 year old female with generalized weakness and instability from chronic debility and weight loss of 60 pounds since may. She was most recently admitted to [facility] with UTI on 08/24. She has had numerous falls over the last months and had documented fall while admitted for UTI. She is unable to safely provide self ADL's due to her weakness and decreasing coordination. 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 Christine Current Medications Home Meds Active Scripts Potassium Chloride (Klor-Con M10) 10 Meq Tablet, 10 MEQ PO BIDWM for hypokalemia , #10 TAB Prov:LINDY WOODSON MD 08/26/16 Calcium Carbonate/Vitamin D3 (Calcium 600 + Vit D 400 Tablet) 1 Each Tablet, 1 TAB PO BID, #100 TAB Prov:LINDY WOODSON MD 08/26/16 Nystatin (Nystatin) 50,000,000 Unit Powder.ea., 1 APPLIC TOP BID for 7 Days Prov:LINDY WOODSON MD 08/26/16 Ondansetron (Zofran Odt) 4 Mg Tab.rapdis, 4 MG PO Q8HR, #7 TAB 0 Refills Orally disintegrating tablet Prov:CHERI FARIAS APRN 08/22/16 Reported Medications Nitrofurantoin Monohyd/M-Cryst (Macrobid 100 mg Capsule) 100 Mg Capsule, 1 CAP PO WB for UTI 08/22/16 Aspirin *EC* (Aspirin EC) 81 Mg Tablet., 81 MG PO HS 08/22/16 Atorvastatin Calcium (Atorvastatin Calcium) 40 Mg Tablet, 40 MG PO HS 04/27/16 Sucralfate (Sucralfate) 1 Gm Tablet, 1 GM PO ACHS 04/27/16 Prednisone (Prednisone) 10 Mg Tablet, 20 MG PO DAILY 04/27/16 Pantoprazole Sodium (Protonix) 40 Mg Tablet., 40 MG PO ACB 04/27/16 Insulin Aspart (Novolog Flexpen) 1 Unit Pen, 8 UNIT SQ TIDWM 04/27/16 Hydrocodone/Apap ([place] 7.5-325 Tablet) 7.5-325 Tablet, 1 TAB PO HS, #1 TAB 03/04/16 Insulin Glargine,Hum.rec.anlog (Toujeo Solostar) 300 Unit/1 Ml Insuln.pen, 6 UNIT SQ HS 03/04/16 Losartan/Hydrochlorothiazide (Losartan-Hctz 50-12.5 mg Tab) 1 Each Tablet, 1 TAB PO DAILY 11/05/14 Alprazolam (Alprazolam) 0.25 Mg Tab.rapdis, 0.25 MG PO BID Y for ANXIETY 05/28/14 Gabapentin (Gabapentin) 100 Mg Capsule, 200 MG PO BID 09/21/11 Sertraline Hcl (Zoloft) 100 Mg Tablet, 150 MG PO HS 09/21/11 Allergies: Coded Allergies: amoxicillin trihydrate (Verified Allergy, Severe, 08/24/16) meperidine HCl (Verified Allergy, Severe, 08/24/16) potassium clavulanate (Verified Allergy, Severe, 08/24/16) cephalexin (Verified Allergy, Intermediate, RASH, 08/24/16) promethazine (Verified Allergy, Unknown, 08/24/16) Family History Family History: pt adopted Social History Does patient use chewing tobac: No Second Hand Exposure: No Substance Use Type: does not use Alcohol Intake: occasionally Marital Status: Sexuality: male partner Current Occupational Status: disabled Advance Directives: Yes Full Code, No DPOA for Healthcare Only Review of Systems Musculoskeletal General: see HPI Lumbar: see HPI Neurological General: weakness Physical Exam General General Nourishment: well nourished, well developed, apparent age, adult General Body Habitus: disheveled Vital Signs Vital Signs Date Time Temp Pulse Resp B/P Pulse Ox O2 Delivery O2 Flow Rate FiO2 08/27/16 08:00 97.8 85 16 126/63 95 Room Air Height (Feet): 5 Height (Inches): 3.00 Telemetry Rhythm: Sinus Rhythm Eyes Brief: FOUND: EOMI, PERRL ENMT Brief: FOUND: TM clear, TM good light reflex Respiratory Brief: FOUND: clear all gonzalez, equal bilaterally Cardiovascular (brief) Cardiac Brief: FOUND: regular rate, regular rhythm Capillary Refill: <2 sec Abdomen (brief) Abdominal Brief: FOUND: BS normo active x4, soft, tender Neurologic (brief) Neurological Brief: FOUND: cranial 2-12 intact Neurologic RN Documented GCS Eye Opening: Verbal: Motor: Total: Psychiatric (brief) FOUND: alert, oriented Laboratory Laboratory Tests Test 08/26/16 22:26 08/27/16 04:56 08/27/16 06:08 08/27/16 10:35 Glucometer 97mg/dL 71mg/dL 126mg/dL White Blood Count 5.3T/MM3 Red Blood Count 4.04M/MM3 Hemoglobin 11.6GM/DL Hematocrit 35.6% Mean Corpuscular Volume 88.1UM3 Mean Corpuscular Hemoglobin 28.7UUG Mean Corpuscular Hemoglobin Concent 32.6GM/DL RDW Standard Deviation 50.1FL Platelet Count 218T/MM3 Mean Platelet Volume 9.5UM3 Immature Granulocyte % (Auto) 0.9% Neutrophils (%) (Auto) 60.6% Lymphocytes (%) (Auto) 26.9% Monocytes (%) (Auto) 9.5% Eosinophils (%) (Auto) 1.7% Basophils (%) (Auto) 0.4% Absolute Immature Granulocyte (auto 0.05T/MM3 Absolute Neutrophils (auto) 3.2T/MM3 Absolute Lymphocytes (auto) 1.4T/MM3 Absolute Monocytes (auto) 0.5T/MM3 Absolute Eosinophils (auto) 0.1T/MM3 Absolute Basophils (auto) 0.0T/MM3 Turbidity < 20 Sodium Level 140MEQ/L Potassium Level 3.4MEQ/L Chloride Level 104MEQ/L Carbon Dioxide Level 23MEQ/L Anion Gap 13MEQ/L Blood Urea Nitrogen 7.0MG/DL Creatinine 0.5MG/DL Glomerular Filtration Rate Calc 126 BUN/Creatinine Ratio 14RATIO Glucose Level 81MG/DL Calculated Osmolality 266MOSM/KG Calcium Level 9.2MG/DL Icterus Index < 2 Chemistry Specimen Hemolysis < 15 Assessment & Plan Problems: (1) Gait instability Assessment & Plan: Physical therapy and occupational therapy to work with patient developed care plan to increase stability and strength. (2) UTI (urinary tract infection) Status: Acute Assessment & Plan: Medical to manage (3) Addisons disease Status: Chronic Assessment & Plan: Medical to manage (4) Insulin dependent diabetes mellitus Status: Chronic Assessment & Plan: Medical to manage Code Status Full Code Interventions to Obtain Goals PT Treatment Plan: Therapeutic Exercise, Gait Training, Functional Activities , Patient/Family Education, Balance/Proprioception OT Treatment Plan: ADL's (basic care), Ther. Exercise for ADL's, UE Functional Training, Balance Training, Pt./Family Education Hospital Course Summary Disclaimer The hospital course summary below is not to be considered part of the above Progress Note. LYNDA LEO MD Aug 27, 2016 14:30
--- NOTE | 2016-08-27 14:34 | IRU24PDOC ---
24 Hour Post Admission Eval Relevant Changes Relevant Changes: No I have reviewed the patient's information and concur with the finding and results of the pre-admission screen. Certification I certify the patient for rehabilitation. Patient Condition Prior Medical Conditions: (1) Gait instability Additional Information: Physical therapy and occupational therapy to work with patient developed care plan to increase stability and strength. (2) UTI (urinary tract infection) Status: Acute Additional Information: Medical to manage (3) Addisons disease Status: Chronic Additional Information: Medical to manage (4) Insulin dependent diabetes mellitus Status: Chronic Additional Information: Medical to manage Current Medical Conditions: (1) Gait instability Additional Information: Physical therapy and occupational therapy to work with patient developed care plan to increase stability and strength. (2) UTI (urinary tract infection) Status: Acute Additional Information: Medical to manage (3) Addisons disease Status: Chronic Additional Information: Medical to manage (4) Insulin dependent diabetes mellitus Status: Chronic Additional Information: Medical to manage Prior Functional Condition Lives With: Spouse Residence Type: Private home/apartment Assistive Devices: Front Wheeled Walker Prior Functional Status: Indep. at home or school Current Functional Status Failed Alternative Therapy Tri: Arrived from acute care Patient Requirements * Patient has been determined to have significant functional limitations requiring at least two therapy disciplines. * Rehabilitation medical practitioner will provide admission approval, assessment and oversight and program coordination at least daily. * Intensive rehabilitative nursing services on site and available 24 hours a day. * The treatment plan will be developed within 24 hours of admission. * Interdisciplinary and goal oriented treatment by professional nursing, social work lecturer, and rehabilitation therapist. * Interdisciplinary team meeting weekly inclusive of ongoing comprehensive discharge planning. First team meeting by seven. Weekly meetings to follow. * Rehab Physician is the team meeting leader. * Pharmacy and diagnostic services will be available. * Ongoing comprehensive rehab program with at least 2 disciplines and greater than or equal to 3 hours a day, 5 days a week. Limitations require: limited mobility, ADL impairment Physical Therapy Minutes: 90 Occupational Therapy Minutes: 90 Therapy The patient is to receive therapy at least 5 days a week. Current Functional Status: Using assistive device PT Treatment Plan: Therapeutic Exercise, Gait Training, Functional Activities , Patient/Family Education, Balance/Proprioception Treatment Plan Frequency: five times per week Treatment Plan Duration: two weeks Plan of Care Comment: 6x/wk for 1st wk; 5x/wk for following weeks OT Treatment Plan: ADL's (basic care), Ther. Exercise for ADL's, UE Functional Training, Balance Training, Pt./Family Education OT Treatment Plan Frequency: five times per week OT Treatment Plan Duration: three weeks ROM Deficit: Right Lower Extremity ROM Comment: R ankle limited d/t previous injuries/surgeries and is fixed in ER position - 2 to 3 degrees of R ankle DF AROM noted; L ankle DF is WFL; B knee ext and hip flex is grossly WFL; see OT eval for UE ROM Muscle Weakness Location: Right Lower Extremity Complication/Comorbidities Patient Complication Risk: (1) Gait instability Comments: Physical therapy and occupational therapy to work with patient developed care plan to increase stability and strength. (2) UTI (urinary tract infection) Status: Acute Comments: Medical to manage (3) Addisons disease Status: Chronic Comments: Medical to manage (4) Insulin dependent diabetes mellitus Status: Chronic Comments: Medical to manage Impact on Functional Outcomes Patient will require motivation and assistance from staff, should be able to improve strength and stability. Barriers to Discharge: weakness, endurance, balance, medical stability Plan to Avoid Complications Plan to Avoid Complications The patient cannot receive this care in a lesser intensive setting such as Long-Term or Outpatient Therapy due to the patient requiring the following management of [place]'s disease, diabetes mellitus.. The patient requires oversight by a rehabilitation physician to manage their rehabilitation treatment plan and the multidisciplinary approach to care that can only be provided in an IRF and requires a multidisciplinary approach to care , provided by professional PTs, OTs, STs, dieticians, RTs, rehabilitation nurses and is not available in lesser levels of care. The frequency and duration for therapy, as recommended by the professional Rehabilitation therapists, meet the patient's initial rehabilitation treatment plan needs and will be further evaluated on a weekly basis for progress and/or changes needed. LYNDA LEO MD Aug 27, 2016 14:34
[2016-08-27 16:22] VITALS: BP 127/68; PULSE 90; RESP 16; TEMP 97.4; O2SAT 96
--- NOTE | 2016-08-27 16:43 | NUR ---
Nutrition Risk R/T poor appetite > 3 days while in the hospital Diet Order: 2000 calorie consistent carb diet Intake 0- bites Pt reports weight loss of ~ 60 lbs since Feb 2016 when she was hospitalized with Sepsis. Pt reports her appetite has never really returned. Pt states her weight has gradually gone down to current weight. Pt states she has nausea and is unable to eat Pt verbalized willingness to try NSA Mighty Shakes and expressed interest in RDs suggested choices for supper of chicken noodle soup and mashed potatoes, string cheese and p butter and toast. FANS notified to send NSA mighty shakes. RD available at ext [phone]
--- NOTE | 2016-08-27 17:32 | NUR ---
MIRIAN MIMS IS 12. ROTP WAS DISCUSSED WITH PT, AND PT IS AGREEABLE TO THIS. Addendum: 08/27/16 at 1732 by LUIS E WILBURN Amended: Links added.
--- NOTE | 2016-08-27 17:34 | NUR ---
CM SPOKE WITH PT, INTRODUCED SELF, EXPLAINED ROLE, PROVIDED CONTACT INFO. PT STATED SHE LIVES IN [place] [address] WITH HER SPOUSE AND HER DC PLAN IS TO RETURN. SHE SAID SHE IS CURRENTLY ON HOME HEALTH SERVICES, SHE THINKS THROUGH [facility]. SHE SAID SHE WANTS TO RESUME THESE SERVICES WHEN SHE IS DC'D. SHE SAID SHE HAS A MOTORIZED SCOOTER, WALKER, AND WHEELCHAIR. SHE DID NOT HAVE ANY QUESTIONS/NEEDS FOR THIS WORKER. SHE GAVE PERMISSION FOR THIS WORKER TO CONTACT HER . Addendum: 08/27/16 at 1736 by LUIS E WILBURN Amended: Links added.
[2016-08-27] MEDS: INSULIN ASPART 100 UNIT/ML SQ PRN (18:54)
--- NOTE | 2016-08-27 19:48 | NUR ---
SHIFT SUMMARY PT HAS BEEN PLEASANT AND COOPERATIVE. PT PIVOT TRANSFERS WITH 1-2 ASSIST. PT REQUIRES SAFETY REMINDERS WITH TRANSFERS. PT WAS INCONTINENT OF BLADDER X1, THIS WAS ALSO AN ACCIDENT RESULTING IN CLOTHING BEING CHANGED. PT REPORTED BEING NAUSEATED THIS MORNING AND WAS UNABLE TO EAT BREAKFAST. LUNCH WAS NOT MUCH BETTER. PT'S BGM'S DID GO UP THIS AFTER NOON. RIGHT BEFORE DINNER IT WAS 167 AND PT RECEIVED 1 UNIT OF NOVOLOG.
[2016-08-27 20:09] VITALS: BP 130/65; PULSE 88; RESP 18; TEMP 97.8; O2SAT 97
[2016-08-27] MEDS: ASPIRIN *EC* 81mg TABLET PO SCH (21:03)
[2016-08-27] MEDS: ATORVASTATIN 40 MG TABLET PO SCH (21:04)
[2016-08-27] MEDS: SERTRALINE 100 MG TABLET PO SCH (21:05)
[2016-08-28] MEDS: ONDANSETRON ODT 4 MG TAB PO SCH ×3 (01:45→17:30)
[2016-08-28] MEDS: METOCLOPRAMIDE 5mg TABLET PO SCH ×4 (05:40→22:28)
[2016-08-28] MEDS: SUCRALFATE 1 G TABLET PO SCH ×4 (05:40→22:28)
[2016-08-28] MEDS: PANTOPRAZOLE 40 MG TABLET PO SCH (05:40)
[2016-08-28] MEDS: ACETAMINOPHEN 325 MG TABLET PO PRN ×2 (07:01→12:31)
[2016-08-28 09:00] VITALS: PULSE 97; RESP 18
[2016-08-28] MEDS: GABAPENTIN 100 MG CAPSULE PO SCH ×2 (09:00→22:28)
[2016-08-28] MEDS: LOSARTAN-HCTZ 50-12.5 MG TAB PO SCH (09:00)
[2016-08-28] MEDS: PredniSONE 20 MG TABLET PO SCH (09:01)
[2016-08-28] MEDS: DOCUSATE SODIUM 100 MG CAPSULE PO SCH ×2 (09:01→22:30)
[2016-08-28] MEDS: NYSTATIN POWDER 15gm BOTTLE TOP SCH ×2 (09:01→22:30)
[2016-08-28] MEDS: POTASSIUM CHLORIDE 10 MEQ TABLET PO SCH ×2 (09:01→17:30)
[2016-08-28] MEDS: CALCIUM 600mg + VIT D 400 TABLET PO SCH ×2 (09:01→22:28)
[2016-08-28] MEDS: NITROFURANTOIN (Macrobid) 100mg CAP PO SCH (09:01)
[2016-08-28 09:07] VITALS: BP 123/66; PULSE 97; RESP 18; TEMP 97.6; O2SAT 96
[2016-08-28 11:47] VITALS: BP 128/75; PULSE 101
--- NOTE | 2016-08-28 12:00 | NUR ---
Chest Tightness Therapy comes out and reports to this RN that pt. is reporting chest tightness. This RN went in to assess pt. VS's stable and pt. is on RA. Please see eMAR. Pt. reports 6/10 chest tightness located in the mid-sternal area. Pt. reports tightness is just in that one spot. Pt. also reports that it feels like she needs to burp. Pt. reports she has not had this tightness before. Spoke to pt. about PRN Nitro tablet which she refused reporting she did not need it. Notified NEO Gonzalez. She rounded on pt. and urgent EKG was ordered. Will continue to monitor.
--- NOTE | 2016-08-28 13:00 | NUR ---
Re-Assessment Upon re-assessment of pt.'s chest tightness, pt. reports it has resolved. [place] drink was given to pt. earlier and she reported that that did help. Will continue to monitor.
--- NOTE | 2016-08-28 13:00 | NUR ---
Pain Pt. has reported bilateral foot pain rated 8-10/10 all shift. PRN Tylenol administered. Please see eMAR. Spoke with pt. about pain management a couple times this shift and she reports that she used to have a problem with prescription meds in the past and does not want anything stronger than Tylenol for pain. Will continue to monitor.
[2016-08-28] MEDS: INSULIN ASPART 100 UNIT/ML SQ PRN (14:15)
--- NOTE | 2016-08-28 14:37 | PNPDOC ---
Subjective Date DATE: 08/28/16 TIME: 14:27 Bridget Fuentes is seen this afternoon while resting in her chair. She reports that she is having some "pressure" in her upper abdomen and chest. She states that she feels that she needs to belch. She refuses any nitroglycerin as offered by nursing staff but she does not feel that this is "heart related". He has been having a lot of nausea, however, feels that that has improved following administration of scheduled Reglan. She requests 7, up to sip. Otherwise without complaints of shortness of breath or GI concerns. She does continue to have chronic bilateral foot discomfort. Objective Vital Signs Vital signs Vital Signs Date Time Temp Pulse Resp B/P Pulse Ox O2 Delivery O2 Flow Rate FiO2 08/28/16 11:47 101 128/75 08/28/16 09:07 97.6 18 96 Room Air Telemetry Rhythm: Sinus Rhythm Height (Feet): 5 Height (Inches): 3.00 Weight (Kilograms): 87.600 General General Appearance: Alert, Orientated x 3, Cooperative, No Acute Distress Eyes (Brief) Eyes: FOUND: EOMI ENMT (Brief) ENMT: FOUND: mucosa moist, normal dentition, NOT FOUND: pharnyx erythema Neck (Brief) Neck: FOUND: midline, NOT FOUND: adenopathy, carotid bruits, tracheal deviation Respiratory (Brief) Respiratory: FOUND: clear all gonzalez, equal bilaterally, NOT FOUND: wheezes Cardiovascular (Brief) Cardiac: FOUND: regular rate, regular rhythm, NOT FOUND: murmur, pedal edema Capillary Refill: <2 sec Abdomen (Brief) Abdominal: FOUND: BS normo active x4, soft, NOT FOUND: distended, tender Lymphatic (Brief) Lymphatic: NOT FOUND: adenopathy Musculoskeletal (Brief) Musculoskeletal: NOT FOUND: tenderness Integumentary (Brief) Integumentary: FOUND: dry, pink, warm Neurologic (Brief) Neurological: FOUND: cranial 2-12 intact Psychiatric (Brief) Psychiatric: FOUND: alert, attentive, normal affect, oriented Laboratory Laboratory Laboratory Tests 08/27/16 04:56 Laboratory Tests 08/27/16 04:56 Assessment & Plan Problems: (1) Ambulatory dysfunction Status: Acute (2) Insulin dependent diabetes mellitus Status: Chronic (3) Duodenal ulcer Status: Chronic (4) Neuropathy Status: Chronic (5) Asthma Status: Chronic (6) Addisons disease Status: Chronic (7) GERD (gastroesophageal reflux disease) Status: Chronic (8) Hyperlipidemia Status: Chronic (9) Allergic rhinitis Status: Chronic (10) Depression Status: Chronic (11) Fibromyalgia Status: Chronic (12) Anxiety (13) Back pain Status: Chronic Plan/Intensity of Service 08/28/16 Did obtain an EKG to rule out underlying cardiac ischemia. No significant change from previous EKG on 08/24 Upon reexamination, patient's discomfort has resided following sips of 7-Up. Discussed with patient about possibility of gastroparesis causing ongoing nausea for the past 6 months. If patient information and handout regarding possible gastroparesis. We will continue scheduled Reglan 5 times a day as this seems to be helping. Is on Macrobid Continue to monitor blood sugars. Currently on sliding scale insulin. Encourage continued work with PT and OT for ongoing strengthening Code Status Full Code Hospital Course Summary Disclaimer The hospital course summary below is not to be considered part of the above Progress Note. Hospital Course Summary 08/28/16 Did obtain an EKG to rule out underlying cardiac ischemia. No significant change from previous EKG on 08/24 Upon reexamination, patient's discomfort has resided following sips of 7-Up. Discussed with patient about possibility of gastroparesis causing ongoing nausea for the past 6 months. If patient information and handout regarding possible gastroparesis. We will continue scheduled Reglan 5 times a day as this seems to be helping. Is on Macrobid Continue to monitor blood sugars. Currently on sliding scale insulin. Encourage continued work with PT and OT for ongoing strengthening TINO LYNCH APRN Aug 28, 2016 14:37
[2016-08-28 16:11] VITALS: BP 137/69; PULSE 97; RESP 18; TEMP 97.7; O2SAT 99
--- NOTE | 2016-08-28 17:30 | NUR ---
Dietary Consult R/T poor calorie intake and nausea Pt states she did not care for the NSA mighty shake, however pt was able to eat ~25% of her meal last evening. Pt states the nausea is now under better control. Pt c/o being very tired. Pt willingly tried a strawberry slightly frozen mighty shake at lunch today. Pt seemed to like it, however upon RD's return pt stated she didn't like it after all. Pt expressed willingness to try magic cup with this evening's meal. RD will continue to offer suggestions and encourage po intake. RD available at ext [phone]
--- NOTE | 2016-08-28 18:00 | NUR ---
Summary Pt. is very pleasant. VS's stable. She is a moderate assist pivot transfer x1 with FWW and gait belt. 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 I/O adequate. Pt. is incontinent of bladder at times. BGM at 1400 noted to be 173. Insulin per sliding scale orders administered. Please see eMAR. Will pass on report to shiftman.
[2016-08-28 20:02] VITALS: BP 125/65; PULSE 94; RESP 18; TEMP 97.8; O2SAT 95
[2016-08-28] MEDS: SERTRALINE 100 MG TABLET PO SCH (22:29)
[2016-08-28] MEDS: ATORVASTATIN 40 MG TABLET PO SCH (22:29)
[2016-08-28] MEDS: ASPIRIN *EC* 81mg TABLET PO SCH (22:29)
[2016-08-29] MEDS: ONDANSETRON ODT 4 MG TAB PO SCH ×3 (01:07→17:31)
[2016-08-29 05:32] LABS: ANION GAP 20 MEQ/L (5-15); BUN/CREATININE RATIO 20 RATIO (6-26); CALCIUM 9.3 MG/DL (8.4-10.2); CHLORIDE 100 MEQ/L (98-107); CO2 - CARBON DIOXIDE 20 MEQ/L (22-30); CREATININE 0.5 MG/DL (0.7-1.2); GLOMERULAR FILTRATION RATE 126; GLUCOSE 68 MG/DL (65-110); POTASSIUM 3.6 MEQ/L (3.6-5); SODIUM 140 MEQ/L (134-144)
[2016-08-29] MEDS: PANTOPRAZOLE 40 MG TABLET PO SCH (06:27)
[2016-08-29] MEDS: SUCRALFATE 1 G TABLET PO SCH ×4 (06:27→22:32)
[2016-08-29] MEDS: METOCLOPRAMIDE 5mg TABLET PO SCH ×4 (06:27→22:33)
--- NOTE | 2016-08-29 07:25 | NUR ---
Summary Pt up to BR in the night and able to ambulate well with walker, gb and 1 assist. Pt able to manage own toilet hygiene for void. Pt petersen slept well through the night. 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 Pt assisted to side lying with emesis bag. Pt denies needing nausea med. Pt states " Just give me another minute". Report given, pt in bed.
[2016-08-29 08:00] VITALS: BP 145/69; PULSE 113; RESP 20; TEMP 98.1; O2SAT 100
[2016-08-29] MEDS: POTASSIUM CHLORIDE 10 MEQ TABLET PO SCH ×2 (08:00→17:30)
[2016-08-29] MEDS: NITROFURANTOIN (Macrobid) 100mg CAP PO SCH (08:00)
[2016-08-29] MEDS: CALCIUM 600mg + VIT D 400 TABLET PO SCH ×2 (08:42→22:40)
[2016-08-29] MEDS: PredniSONE 20 MG TABLET PO SCH (08:42)
[2016-08-29] MEDS: DOCUSATE SODIUM 100 MG CAPSULE PO SCH ×2 (08:42→22:31)
[2016-08-29] MEDS: NYSTATIN POWDER 15gm BOTTLE TOP SCH ×2 (08:43→21:00)
[2016-08-29] MEDS: GABAPENTIN 100 MG CAPSULE PO SCH ×2 (08:43→22:32)
[2016-08-29] MEDS: LOSARTAN-HCTZ 50-12.5 MG TAB PO SCH (08:43)
[2016-08-29 15:00] VITALS: BP 130/73; PULSE 90; RESP 18; O2SAT 98
[2016-08-29 16:05] VITALS: BP 115/63; PULSE 99; RESP 18; TEMP 97.5; O2SAT 95
--- NOTE | 2016-08-29 17:14 | NUR ---
Dietary Consult f/U Pt reports she is having difficulty with nausea today. Pt reports she is unable to eat and did not care for the magic cup either. Pt states weight loss of ~60 lbs since Feb 2016 when she was hospitalized with sepsis. Pt reports the nausea comes and goes, but has been present since Friday (~4 days ago) Pt stated that following the sepsis she had hair loss and it turned felipe and she has had to color it ever since Nutrition Focused Physical Exam findings Hair positive for thinning hair and color changes Eyes positive for pale conjunctiva Tongue positive for patchiness sore and swollen skin positive for abnormal dryness Nails negative Gastrointestinal positive for anorexia Severe Malnutrition in context of chronic illness related to inadequate protein-energy intake with lack of nutrient-dense foods with significant weight loss of 60 lbs (24%) in 6 months: severe muscle wasting shoulders,, deltoids and thighs; severe body fat loss in triceps; decreased hand strength Pt's po intake remains inadequate. Pt may benefit from alternate route of nutrition until adequate po intake can be achieved. Findings discussed with Dr Krzysztof MORA available at ext [phone]
--- NOTE | 2016-08-29 19:29 | PNPDOC ---
IRU Subjective Date DATE: 08/28/16 TIME: 2031 Pt evaluated and treated 08/28/16 at approx 2031, note entered tonight. Subjective Patient did work with physical therapy and occupational therapy, very tired. Resting in bed. IRU Objective Vital Signs Vital signs Vital Signs Date Time Temp Pulse Resp B/P Pulse Ox O2 Delivery O2 Flow Rate FiO2 08/29/16 16:05 97.5 99 18 115/63 95 Room Air Telemetry Rhythm: Sinus Rhythm Height (Feet): 5 Height (Inches): 3.00 Weight (Kilograms): 87.600 General General Appearance: Alert, Orientated x 2 Respiratory (Brief) Respiratory: FOUND: clear all gonzalez, equal bilaterally Cardiovascular (Brief) Cardiac: FOUND: regular rate, regular rhythm Capillary Refill: <2 sec Laboratory Laboratory Laboratory Tests Test 08/28/16 10:28 08/28/16 14:05 08/29/16 04:39 08/29/16 10:47 Glucometer 109mg/dL 173mg/dL 141mg/dL Turbidity < 20 Sodium Level 140MEQ/L Potassium Level 3.6MEQ/L Chloride Level 100MEQ/L Carbon Dioxide Level 20MEQ/L Anion Gap 20MEQ/L Blood Urea Nitrogen 10.0MG/DL Creatinine 0.5MG/DL Glomerular Filtration Rate Calc 126 BUN/Creatinine Ratio 20RATIO Glucose Level 68MG/DL Calculated Osmolality 266MOSM/KG Calcium Level 9.3MG/DL Icterus Index < 2 Chemistry Specimen Hemolysis 40 Test 08/29/16 14:02 Glucometer 176mg/dL Assessment & Plan Problems: (1) Gait instability Assessment & Plan: Continue to work with his therapy and occupational therapy, review FIM score tomorrow. (2) UTI (urinary tract infection) Status: Acute Assessment & Plan: Managed by medical (3) Addisons disease Status: Chronic Assessment & Plan: Managed by medical, may contribute to myopathy and weakness. (4) Insulin dependent diabetes mellitus Status: Chronic Assessment & Plan: Managed by medical DVT Prophylaxis: SCD'S Code Status Full Code Interventions to Obtain Goals PT Treatment Plan: Therapeutic Exercise, Gait Training, Functional Activities , Patient/Family Education, Balance/Proprioception OT Treatment Plan: ADL's (basic care), Ther. Exercise for ADL's, UE Functional Training, Balance Training, Pt./Family Education Hospital Course Summary Disclaimer The hospital course summary below is not to be considered part of the above Progress Note. Hospital Course Summary 08/28/16 Did obtain an EKG to rule out underlying cardiac ischemia. No significant change from previous EKG on 08/24 Upon reexamination, patient's discomfort has resided following sips of 7-Up. Discussed with patient about possibility of gastroparesis causing ongoing nausea for the past 6 months. If patient information and handout regarding possible gastroparesis. We will continue scheduled Reglan 5 times a day as this seems to be helping. Is on Macrobid Continue to monitor blood sugars. Currently on sliding scale insulin. Encourage continued work with PT and OT for ongoing strengthening LYNDA LEO MD Aug 29, 2016 19:29
[2016-08-29 20:00] VITALS: BP 129/69; PULSE 93; RESP 14; TEMP 98; O2SAT 99
--- NOTE | 2016-08-29 20:25 | NUR ---
Shift summary Patient nauseated throughout day. She states the nausea is something she has battled for months. Ate a few bites of bfst today, has drank fluids, but otherwise states she has no appetite. Receives scheduled reglan, carafate and zofran. 1 assist for transfers to the wheelchair, bed and toilet today. Incontinent of urine 2 this shift. wears dentures.
[2016-08-29] MEDS: ASPIRIN *EC* 81mg TABLET PO SCH (22:32)
[2016-08-29] MEDS: ATORVASTATIN 40 MG TABLET PO SCH (22:33)
[2016-08-29] MEDS: SERTRALINE 100 MG TABLET PO SCH (22:50)
[2016-08-29 23:06] VITALS: PULSE 90; RESP 14
[2016-08-30] MEDS: ONDANSETRON ODT 4 MG TAB PO SCH ×3 (00:20→16:59)
--- NOTE | 2016-08-30 01:11 | NUR ---
Chart Check 24 hour chart check completed
[2016-08-30] MEDS: SUCRALFATE 1 G TABLET PO SCH ×4 (06:10→20:41)
[2016-08-30] MEDS: METOCLOPRAMIDE 5mg TABLET PO SCH ×4 (06:10→20:41)
[2016-08-30] MEDS: PANTOPRAZOLE 40 MG TABLET PO SCH (06:10)
[2016-08-30 07:26] VITALS: BP 122/66; PULSE 95; RESP 16; TEMP 97.3; O2SAT 93
[2016-08-30] MEDS: DOCUSATE SODIUM 100 MG CAPSULE PO SCH ×2 (09:00→20:40)
[2016-08-30] MEDS: NITROFURANTOIN (Macrobid) 100mg CAP PO SCH (09:25)
[2016-08-30] MEDS: CALCIUM 600mg + VIT D 400 TABLET PO SCH ×2 (09:28→20:40)
[2016-08-30] MEDS: NYSTATIN POWDER 15gm BOTTLE TOP SCH ×2 (09:28→20:41)
[2016-08-30] MEDS: LOSARTAN-HCTZ 50-12.5 MG TAB PO SCH (09:28)
[2016-08-30] MEDS: GABAPENTIN 100 MG CAPSULE PO SCH ×2 (09:28→20:40)
[2016-08-30] MEDS: PredniSONE 20 MG TABLET PO SCH (09:36)
[2016-08-30] MEDS: POTASSIUM CHLORIDE 10 MEQ TABLET PO SCH ×2 (09:36→18:05)
[2016-08-30 09:43] VITALS: PULSE 95; RESP 16
--- NOTE | 2016-08-30 10:13 | NUR ---
Dietary consult f/u Diet: [id number]; Intake: poor. Reports she feels nauseas and does not feel like eating. Possible gastroparesis. RD suggested that she begin by drinking fluids (milk and juice) and liquid foods (regular jello, yogurt) and soft fruit (applesauce, banana). The above diet is recommended for gastroparesis. Pt states that this is what she was eating at home. RD suggested that she eat/drink something every 1-2 hours, as tolerated. RD available x [phone]
[2016-08-30] MEDS: INSULIN ASPART 100 UNIT/ML SQ PRN ×2 (10:41→14:23)
--- NOTE | 2016-08-30 14:10 | PNPDOC ---
Subjective Date DATE: 08/30/16 TIME: 14:05 Subjective Gina is seen today laying in her bed. She reports that she is still having episodes of nausea and fatigue. She did vomit this afternoon, however overall she feels that her nausea is better. She denies chest pain and shortness of air. Noted that fasting blood sugar this morning was 69, however was hyperglycemia later in the day. Objective Vital Signs Vital signs Vital Signs Date Time Temp Pulse Resp B/P Pulse Ox O2 Delivery O2 Flow Rate FiO2 08/30/16 09:43 95 16 08/30/16 07:26 97.3 122/66 93 Room Air Height (Feet): 5 Height (Inches): 3.00 Weight (Kilograms): 87.600 General General Appearance: Alert, Orientated x 3, Cooperative, No Acute Distress Respiratory (Brief) Respiratory: FOUND: clear all gonzalez, equal bilaterally Cardiovascular (Brief) Cardiac: FOUND: regular rate, regular rhythm Abdomen (Brief) Abdominal: FOUND: BS normo active x4, soft Integumentary (Brief) Integumentary: FOUND: dry, pink, warm Psychiatric (Brief) Psychiatric: FOUND: alert, normal affect, oriented Laboratory Laboratory Laboratory Tests 08/29/16 04:39 Assessment & Plan Problems: (1) Ambulatory dysfunction Status: Acute (2) Insulin dependent diabetes mellitus Status: Chronic (3) Duodenal ulcer Status: Chronic (4) Neuropathy Status: Chronic (5) Asthma Status: Chronic (6) Addisons disease Status: Chronic (7) GERD (gastroesophageal reflux disease) Status: Chronic (8) Hyperlipidemia Status: Chronic (9) Allergic rhinitis Status: Chronic (10) Depression Status: Chronic (11) Fibromyalgia Status: Chronic (12) Anxiety (13) Back pain Status: Chronic Plan/Intensity of Service 08/30/16 Discussed continual nausea. Suspect possible gastroparesis as this nausea has been occurring for the past 6 months. We will continue scheduled Reglan 5 times a day as she feels this is improving symptoms. Continue on Macrobid for tx of UTI - day 4 Continue to monitor blood sugars. Currently on sliding scale insulin. May need to adjust as she eats more. Dietary consultation for calorie management Encourage continued work with PT and OT for ongoing strengthening Will check CBC and BMP for blood count, electrolyte and renal function monitoring. Code Status Full Code Hospital Course Summary Disclaimer The hospital course summary below is not to be considered part of the above Progress Note. Hospital Course Summary 08/28/16 Did obtain an EKG to rule out underlying cardiac ischemia. No significant change from previous EKG on 08/24 Upon reexamination, patient's discomfort has resided following sips of 7-Up. Discussed with patient about possibility of gastroparesis causing ongoing nausea for the past 6 months. If patient information and handout regarding possible gastroparesis. We will continue scheduled Reglan 5 times a day as this seems to be helping. Is on Macrobid Continue to monitor blood sugars. Currently on sliding scale insulin. Encourage continued work with PT and OT for ongoing strengthening 08/30/16 Discussed continual nausea. Suspect possible gastroparesis as this nausea has been occurring for the past 6 months. We will continue scheduled Reglan 5 times a day as she feels this is improving symptoms. Continue on Macrobid for tx of UTI - day 4 Continue to monitor blood sugars. Currently on sliding scale insulin. May need to adjust as she eats more. Dietary consultation for calorie management Encourage continued work with PT and OT for ongoing strengthening Will check CBC and BMP for blood count, electrolyte and renal function monitoring. TINO LYNCH APRN Aug 30, 2016 14:10
[2016-08-30 16:27] VITALS: BP 114/62; PULSE 92; RESP 18; TEMP 97.8; O2SAT 94
[2016-08-30] MEDS: HYDROCODONE/APAP 5 mg/325 mg TABLET PO PRN (16:59)
--- NOTE | 2016-08-30 17:53 | NUR ---
Summary Pt is A/O x 3 and likes to reminisce about past trips and family. Pt has been up to wheelchair for all meals; Pt is assist x 1 with gait belt and FWW, doing a stand/pivot transfer. Pt did participate in therapies and took meds whole with some nausea difficulty, but able to get all the pills down. Pt drank 1 milk carton for every meal, and other juices/tea throughout the day. Encouraged other protein/carb ie yogurt, but Pt refused those. Pt stated, "I ordered yogurt for tomorrow." Pt mostly dry heaved today and got nausea, only small emesis after walking with physical therapy this morning. Pt given norco approx. 30 minutes before this for c/o pain in bilateral feet/ankles, rated pain 6/10. Pt mostly states pain is a 6/10 at home, no other pain medication given this shift except for the norco. Pt had no BM, voiding adequately and taking in fair intake. Pt has stress incontinent/ incontinent and remains more dry when up in wheelchair. Pt didn't want to go out to dining area for meals stated, "I threw up in that place yesterday, if you want me to try any food, I'm not going to try it in the dining area, that was so embarrassing." Agreed to let Pt stay in room as long as Pt got up in wheelchair for each meal. Pt's here twice this shift. Pt blood glucose for fasting was 69, 1000: 236, 1400 192. Sliding scale insulin given per order. No other c/o voiced. Denies chest pain and SOA. Vital signs stable, see vital sign assessment. Will continue to monitor. Call light in reach. Pt has had on SCD's most of the day.
--- NOTE | 2016-08-30 18:16 | NUR ---
MANSOOR DEAN Pt's family, daughter and grandchildren here and brought her an "easter basket". Pt smiling and enjoying family time. Will continue to monitor.
--- NOTE | 2016-08-30 19:51 | PDIRUOPC ---
Overall Plan of Care Date DATE: 08/29/16 TIME: 20:30 Pt seen and evaluated 08/29/16 at approx 20:30, note entered today Relevant Changes Relevant Changes: No I have reviewed the patient's information and concur with the finding and results of the pre-admission screen. Certification I certify the patient for rehabilitation. Patient Impairments Prior Medical Conditions: (1) Gait instability Additional Information: Continue to work with his therapy and occupational therapy, review FIM score tomorrow. (2) UTI (urinary tract infection) Status: Acute Additional Information: Managed by medical (3) Addisons disease Status: Chronic Additional Information: Managed by medical, may contribute to myopathy and weakness. (4) Insulin dependent diabetes mellitus Status: Chronic Additional Information: Managed by medical Current Medical Conditions: (1) Gait instability Additional Information: Continue to work with his therapy and occupational therapy, review FIM score tomorrow. (2) UTI (urinary tract infection) Status: Acute Additional Information: Managed by medical (3) Addisons disease Status: Chronic Additional Information: Managed by medical, may contribute to myopathy and weakness. (4) Insulin dependent diabetes mellitus Status: Chronic Additional Information: Managed by medical Medical Prognosis Fair IRF Tx That Should Address Dx: (1) Ambulatory dysfunction (2) Multiple falls Dx Requiring Medical FU: (1) Hypokalemia (2) Altered mental status Vital Signs Vital Signs Date Time Temp Pulse Resp B/P Pulse Ox O2 Delivery O2 Flow Rate FiO2 08/30/16 16:27 97.8 92 18 114/62 94 Room Air Laboratory Laboratory Tests Test 08/29/16 04:39 08/29/16 10:47 08/29/16 14:02 08/29/16 20:53 Turbidity < 20 Sodium Level 140MEQ/L Potassium Level 3.6MEQ/L Chloride Level 100MEQ/L Carbon Dioxide Level 20MEQ/L Anion Gap 20MEQ/L Blood Urea Nitrogen 10.0MG/DL Creatinine 0.5MG/DL Glomerular Filtration Rate Calc 126 BUN/Creatinine Ratio 20RATIO Glucose Level 68MG/DL Calculated Osmolality 266MOSM/KG Calcium Level 9.3MG/DL Icterus Index < 2 Chemistry Specimen Hemolysis 40 Glucometer 141mg/dL 176mg/dL 132mg/dL Test 08/30/16 06:06 08/30/16 10:19 08/30/16 14:07 Glucometer 69mg/dL 236mg/dL 192mg/dL Anticipated Interventions The patient requires inpatient IRF care for PT, OT, and/or ST for residuals remaining from [] resulting in muscular weakness and strength deficits. Strength Deficits: Left Lower Extremity, Right Lower Extremity FIM Scores Ambulation Distance: 8 Wheelchair Propulsion Distance: 74 Ambulation Ability: 1 Total Assistance Ambulation Assistance Needed: 1 Person Walk FIM Score Reason: Distance 4/7 Assist Wheelchair Propulsion Ability: 0 Activity Does Not Occur Wheelchair Propulsion [place]: 1 Person Stairs: 0 Activity Does Not Occur Reason for Stair FIM: Not safe to attempt based on amb ability on level surfaces. Eating Ability-FIM: 6 Modified [place] Grooming Ability: 5 Supervision/Setup Bathing Ability: 4 Minimal Assistance Upper Body Dressing Ability: 5 Supervision/Setup Lower Body Dressing Ability: 4 Minimal Assistance Lower Body Dressing Assistance: 1 Person Dressing-Lower FIM Score Reaso: Pt. required increased assistance for LB dressing due to feeling fatigued/nauseous. Toileting Ability: 4 Minimal Assistance Toileting Assistance Needed: 1 Person Bed Transfer Ability: 3 Moderate Assistance Bed Transfer Assistance Needed: 1 Person Chair Transfer Ability: 2 Maximum Assistance Chair Transfer Assistance Need: 1 Person Chair FIM Score Reason: Pt requires mod (A) for sit to stand and stand to sit. Overall Wheelchair Transfer Ab: 2 Maximum Assistance Overall Toilet / Commode Trans: 4 Minimal Assistance Toilet / Commode Transfer Assi: 1 Person Tub / Shower Transfer Ability: 0 Activity Does Not Occur Tub/Shower FIM Score Reason: shower transfer not tested due to fatigue/safety concern. Comprehension Ability: 6 Modified [place] Social Interaction: 7+ Complete [place] Problem Solvin Modified [place] Expression Ability: 7+ Complete [place] Memory: 7+ Complete [place] Current Functional Status Failed Alternative Therapy: Arrived from acute care Patient Requires * Patient has been determined to have significant functional limitations requiring at least two therapy disciplines. * Rehabilitation medical practitioner will provide admission approval, assessment and oversight and program coordination at least daily. * Intensive rehabilitative nursing services on site and available 24 hours a day. * The treatment plan will be developed within 24 hours of admission. * Interdisciplinary and goal oriented treatment by professional nursing, group social worker, and rehabilitation therapist. * Interdisciplinary team meeting weekly inclusive of ongoing comprehensive discharge planning. First team meeting by . Weekly meetings to follow. * Rehab Physician is the team meeting leader. * Pharmacy and diagnostic services will be available. * Ongoing comprehensive rehab program with at least 2 disciplines and greater than or equal to 3 hours a day, 5 days a week. Limitations require: limited mobility, ADL impairment Physical Therapy Minutes: 90 Occupational Therapy Minutes: 90 Therapy The patient is to receive therapy at least 5 days a week. PT Treatment Plan: Therapeutic Exercise, Gait Training, Functional Activities , Patient/Family Education, Balance/Proprioception Treatment Plan Frequency: five times per week Treatment Plan Duration: two weeks Plan of Care Comment: 6x/wk for 1st wk; 5x/wk for following weeks OT Treatment Plan: ADL's (basic care), Ther. Exercise for ADL's, UE Functional Training, Balance Training, Pt./Family Education OT Treatment Plan Frequency: five times per week OT Treatment Plan Duration: three weeks Anticapted LOS/Outcomes Anticipated Functional Outcome Improvement in strength and stability Anticipated DC Destination: Home Health Service Home Safety Plan The patient will be provided with the development of a Home Safety Plan for return to a home or home-like environment and to ensure safety post discharge. Complicating Conditions Complications since IRF admit: (1) Gait instability Comments: Continue to work with his therapy and occupational therapy, review FIM score tomorrow. (2) UTI (urinary tract infection) Status: Acute Comments: Managed by medical (3) Addisons disease Status: Chronic Comments: Managed by medical, may contribute to myopathy and weakness. (4) Insulin dependent diabetes mellitus Status: Chronic Comments: Managed by medical Other Contributing Factors: Plan to Avoid Complications Barriers to Attaining Goals: weakness, balance, endurance Plan to Avoid Complications The patient cannot receive this care in a lesser intensive setting such as [facility] or Outpatient Therapy due to the patient requiring the following treatment for diabetes mellitus, UTI, hypokalemia. The patient requires oversight by a rehabilitation physician to manage their rehabilitation treatment plan and the multidisciplinary approach to care that can only be provided in an IRF and requires a multidisciplinary approach to care , provided by professional PTs, OTs, STs, dieticians, RTs, rehabilitation nurses and is not available in lesser levels of care. The frequency and duration for therapy, as recommended by the professional Rehabilitation therapists, meet the patient's initial rehabilitation treatment plan needs and will be further evaluated on a weekly basis for progress and/or changes needed. LYNDA LEO MD Aug 30, 2016 19:50
--- NOTE | 2016-08-30 19:52 | PNPDOC ---
IRU Subjective Date DATE: 08/30/16 TIME: 19:51 Subjective Patient up, working with PT today. Ate meals and common area. IRU Objective Vital Signs Vital signs Vital Signs Date Time Temp Pulse Resp B/P Pulse Ox O2 Delivery O2 Flow Rate FiO2 08/30/16 16:27 97.8 92 18 114/62 94 Room Air Height (Feet): 5 Height (Inches): 3.00 Weight (Kilograms): 87.600 General General Appearance: Alert, Orientated x 2 Respiratory (Brief) Respiratory: FOUND: clear all gonzalez, equal bilaterally, rales Cardiovascular (Brief) Cardiac: FOUND: regular rate, regular rhythm Laboratory Laboratory Laboratory Tests Test 08/29/16 04:39 08/29/16 10:47 08/29/16 14:02 08/29/16 20:53 Turbidity < 20 Sodium Level 140MEQ/L Potassium Level 3.6MEQ/L Chloride Level 100MEQ/L Carbon Dioxide Level 20MEQ/L Anion Gap 20MEQ/L Blood Urea Nitrogen 10.0MG/DL Creatinine 0.5MG/DL Glomerular Filtration Rate Calc 126 BUN/Creatinine Ratio 20RATIO Glucose Level 68MG/DL Calculated Osmolality 266MOSM/KG Calcium Level 9.3MG/DL Icterus Index < 2 Chemistry Specimen Hemolysis 40 Glucometer 141mg/dL 176mg/dL 132mg/dL Test 08/30/16 06:06 08/30/16 10:19 08/30/16 14:07 Glucometer 69mg/dL 236mg/dL 192mg/dL Assessment & Plan Problems: (1) Gait instability Assessment & Plan: Patient working with physical therapy and occupational therapy, improvement reported. Continue with current plan of care, reevaluate on Friday with team meeting. (2) UTI (urinary tract infection) Status: Acute Assessment & Plan: Managed by medical (3) Addisons disease Status: Chronic Assessment & Plan: Managed by medical (4) Insulin dependent diabetes mellitus Status: Chronic Assessment & Plan: Managed by medical Code Status Full Code Interventions to Obtain Goals PT Treatment Plan: Therapeutic Exercise, Gait Training, Functional Activities , Patient/Family Education, Balance/Proprioception OT Treatment Plan: ADL's (basic care), Ther. Exercise for ADL's, UE Functional Training, Balance Training, Pt./Family Education Hospital Course Summary Disclaimer The hospital course summary below is not to be considered part of the above Progress Note. Hospital Course Summary 08/28/16 Did obtain an EKG to rule out underlying cardiac ischemia. No significant change from previous EKG on 08/24 Upon reexamination, patient's discomfort has resided following sips of 7-Up. Discussed with patient about possibility of gastroparesis causing ongoing nausea for the past 6 months. If patient information and handout regarding possible gastroparesis. We will continue scheduled Reglan 5 times a day as this seems to be helping. Is on Macrobid Continue to monitor blood sugars. Currently on sliding scale insulin. Encourage continued work with PT and OT for ongoing strengthening 08/30/16 Discussed continual nausea. Suspect possible gastroparesis as this nausea has been occurring for the past 6 months. We will continue scheduled Reglan 5 times a day as she feels this is improving symptoms. Continue on Macrobid for tx of UTI - day 4 Continue to monitor blood sugars. Currently on sliding scale insulin. May need to adjust as she eats more. Dietary consultation for calorie management Encourage continued work with PT and OT for ongoing strengthening Will check CBC and BMP for blood count, electrolyte and renal function monitoring. LYNDA LEO MD Aug 30, 2016 19:52
[2016-08-30] MEDS: ASPIRIN *EC* 81mg TABLET PO SCH (20:41)
[2016-08-30] MEDS: ATORVASTATIN 40 MG TABLET PO SCH (20:41)
[2016-08-30] MEDS: SERTRALINE 100 MG TABLET PO SCH (20:44)
[2016-08-30 22:53] VITALS: BP 128/72; PULSE 95; RESP 20; TEMP 97.5; O2SAT 95
[2016-08-31 00:54] VITALS: PULSE 95; RESP 20
--- NOTE | 2016-08-31 01:07 | NUR ---
Chart Check 24 hour chart check completed
[2016-08-31] MEDS: ONDANSETRON ODT 4 MG TAB PO SCH (01:22)
[2016-08-31] MEDS: ONDANSETRON ODT 4 MG TAB PO PRN ×3 (04:32→21:25)
--- NOTE | 2016-08-31 05:25 | NUR ---
Summary Patient is alert and oriented, pleasant and cooperative. She reported no pain and no nausea the beginning of the shift, however, she did become nauseated early this AM. Dr Adams was called and changed her scheduled zofran to PRN every 4 hours. One was given right away and appears to have helped. Pt transferred self to and from wheel chair to bed and toilet during the night with mostly just set up assist. She was able to manage her own clothing and hygiene, except minimal assist with one incontinent episode to take off depends. She refused her [place] last night. She is in bed with bed alarm on, SCDs on, side rails up times two and call light within reach.
[2016-08-31] MEDS: PANTOPRAZOLE 40 MG TABLET PO SCH (06:08)
[2016-08-31] MEDS: METOCLOPRAMIDE 5mg TABLET PO SCH ×4 (06:09→21:09)
[2016-08-31] MEDS: SUCRALFATE 1 G TABLET PO SCH ×4 (06:09→21:25)
[2016-08-31 08:00] VITALS: BP 113/58; PULSE 104; RESP 16; TEMP 97.8; O2SAT 93
[2016-08-31] MEDS: POTASSIUM CHLORIDE 10 MEQ TABLET PO SCH ×2 (08:00→17:30)
[2016-08-31] MEDS: NITROFURANTOIN (Macrobid) 100mg CAP PO SCH (08:00)
[2016-08-31] MEDS: CALCIUM 600mg + VIT D 400 TABLET PO SCH ×2 (09:00→21:08)
[2016-08-31] MEDS ORDERED: BISACODYL 10 MG SUPPOSITORY RECTALLY PRN (09:30)
[2016-08-31] MEDS: GABAPENTIN 100 MG CAPSULE PO SCH ×2 (10:15→21:08)
[2016-08-31] MEDS: DOCUSATE SODIUM 100 MG CAPSULE PO SCH ×2 (10:16→21:07)
[2016-08-31] MEDS: PredniSONE 20 MG TABLET PO SCH (10:16)
[2016-08-31] MEDS: LOSARTAN-HCTZ 50-12.5 MG TAB PO SCH (10:17)
[2016-08-31] MEDS: NYSTATIN POWDER 15gm BOTTLE TOP SCH ×2 (10:18→21:08)
[2016-08-31 16:00] VITALS: BP 106/52; PULSE 107; RESP 16; TEMP 97.7; O2SAT 95
--- NOTE | 2016-08-31 19:18 | NUR ---
Shift summary Patient alert and oriented x3 this shift. Transferring with gait belt, min assist to w/c. No emesis today, but somewhat nauseated. Very hard stools x3 today. Hemorrhoids bleeding after hard stools. Benzocaine ointment ordered and applied. Patient states she feels better after her BMs today. Had only milk today at meal time and lemon robinson soda. Refused potassium, calcium and carafate medications this shift. Incontinent of urine this shift, wears pull ups, mod assist for incontinent management.
[2016-08-31] MEDS: ASPIRIN *EC* 81mg TABLET PO SCH (21:08)
[2016-08-31] MEDS: ATORVASTATIN 40 MG TABLET PO SCH (21:09)
[2016-08-31] MEDS: SERTRALINE 100 MG TABLET PO SCH (21:09)
[2016-08-31] MEDS: INSULIN ASPART 100 UNIT/ML SQ PRN (21:43)
[2016-08-31 22:16] VITALS: PULSE 107; RESP 16
[2016-09-01 00:55] VITALS: BP 104/62; PULSE 109; RESP 18; TEMP 98.2; O2SAT 95
--- NOTE | 2016-09-01 02:24 | NUR ---
Chart Check 24 hour chart check completed
--- NOTE | 2016-09-01 05:22 | NUR ---
Summary Patient has been weak tonight. She has required two persons to assist her a couple of times to get up to the restroom as she did not feel strong enough to transfer herself. She pivot transfers to the toilet/wheelchair/bed. She gagged on some of her medications last evening, spitting up a couple of pills. She also had diarrhea while gagging. She required total assist managing incontinence. She has not had any problems with nausea since then. She has been pleasant and cooperative, and very talkative tonight. She required one unit sliding scale insulin for hyperglycemia. She wore her SCDs part of the night, then requested they be removed. She has had some milk during the night, and asked for a cookie, but has not eaten that yet. She is in bed now with side rails up times two, bed alarm on and call light within reach.
[2016-09-01] MEDS: PANTOPRAZOLE 40 MG TABLET PO SCH (06:21)
[2016-09-01] MEDS: METOCLOPRAMIDE 5mg TABLET PO SCH ×5 (06:21→21:19)
[2016-09-01] MEDS: SUCRALFATE 1 G TABLET PO SCH ×4 (06:22→21:57)
[2016-09-01 07:26] VITALS: BP 134/72; PULSE 92; RESP 16; TEMP 98.1; O2SAT 94
[2016-09-01] MEDS: POTASSIUM CHLORIDE 10 MEQ TABLET PO SCH ×2 (08:00→16:35)
[2016-09-01] MEDS: NITROFURANTOIN (Macrobid) 100mg CAP PO SCH (08:35)
[2016-09-01] MEDS: CALCIUM 600mg + VIT D 400 TABLET PO SCH ×3 (08:35→21:19)
[2016-09-01] MEDS: PredniSONE 20 MG TABLET PO SCH (08:36)
[2016-09-01] MEDS: NYSTATIN POWDER 15gm BOTTLE TOP SCH ×2 (08:36→21:24)
[2016-09-01] MEDS: GABAPENTIN 100 MG CAPSULE PO SCH ×2 (08:36→21:19)
[2016-09-01] MEDS: LOSARTAN-HCTZ 50-12.5 MG TAB PO SCH (08:36)
[2016-09-01] MEDS: DOCUSATE SODIUM 100 MG CAPSULE PO SCH ×2 (08:37→21:19)
[2016-09-01] MEDS: INSULIN ASPART 100 UNIT/ML SQ PRN ×2 (11:26→17:26)
--- NOTE | 2016-09-01 12:05 | NUR ---
NOTE PATIENT WHEELED OUT TO LUNCH. SAT AT TABLE 5 MIN, DRANK WATER. STARTED GAGGING AND SNEEZING. PATIENT WHEELED BACK TO ROOM. AGREED TO TRY REGLAN AGAIN. SHE HAD PREVIOUSLY BEEN REFUSING REGLAN. WILL MONITOR.
[2016-09-01 16:00] VITALS: BP 144/73; PULSE 93; RESP 16; TEMP 98; O2SAT 93
[2016-09-01] MEDS: ONDANSETRON ODT 4 MG TAB PO PRN (16:33)
--- NOTE | 2016-09-01 18:36 | NUR ---
SHIFT SUMMARY PATIENT ALERT AND ORIENTED X 3. PATIENT C/O INTERMITTENT NAUSEA THROUGHOUT DAY. PATIENT WAS GIVEN REGLAN AND ZOFRAN, REPORTED MILD NAUSEA RELIEF. PATIENT WAS NOT ABLE TO DON VERY MUCH OF MEALS. CAME OUT TO DINNING ROOM FOR LUNCH AND DINNER. ATE HALF A BANANA FOR LUNCH. PATIENT TRANSFERS TO WITH ONE ASSIST AND GAIT BELT. C/O PAIN IN FEET, BUT REFUSED PAIN MEDS. WILL CONT TO MONITOR.
[2016-09-01 19:39] VITALS: BP 132/66; PULSE 93; TEMP 98.1; O2SAT 95
--- NOTE | 2016-09-01 21:05 | PNPDOC ---
IRU Subjective Date DATE: 09/01/16 TIME: 21:04 IRU Objective Vital Signs Vital signs Vital Signs Date Time Temp Pulse Resp B/P Pulse Ox O2 Delivery O2 Flow Rate FiO2 09/01/16 16:00 98.0 93 16 144/73 93 Room Air Height (Feet): 5 Height (Inches): 3.00 Weight (Kilograms): 87.600 Laboratory Laboratory Laboratory Tests Test 08/30/16 21:35 08/31/16 06:05 08/31/16 10:35 08/31/16 14:28 Glucometer 135mg/dL 100mg/dL 186mg/dL 203mg/dL Test 08/31/16 20:58 09/01/16 06:09 09/01/16 10:07 09/01/16 17:20 Glucometer 185mg/dL 107mg/dL 211mg/dL 207mg/dL Assessment & Plan Problems: (1) Gait instability Assessment & Plan: Overall showing improvement. Pt working with PT and OT, reeval in am. (2) UTI (urinary tract infection) Status: Acute Assessment & Plan: managed by medical. (3) Addisons disease Status: Chronic Assessment & Plan: managed by medical. (4) Insulin dependent diabetes mellitus Status: Chronic Assessment & Plan: managed by medical. Code Status Full Code Interventions to Obtain Goals PT Treatment Plan: Therapeutic Exercise, Gait Training, Functional Activities , Patient/Family Education, Balance/Proprioception OT Treatment Plan: ADL's (basic care), Ther. Exercise for ADL's, UE Functional Training, Balance Training, Pt./Family Education Hospital Course Summary Disclaimer The hospital course summary below is not to be considered part of the above Progress Note. Hospital Course Summary 08/28/16 Did obtain an EKG to rule out underlying cardiac ischemia. No significant change from previous EKG on 08/24 Upon reexamination, patient's discomfort has resided following sips of 7-Up. Discussed with patient about possibility of gastroparesis causing ongoing nausea for the past 6 months. If patient information and handout regarding possible gastroparesis. We will continue scheduled Reglan 5 times a day as this seems to be helping. Is on Macrobid Continue to monitor blood sugars. Currently on sliding scale insulin. Encourage continued work with PT and OT for ongoing strengthening 08/30/16 Discussed continual nausea. Suspect possible gastroparesis as this nausea has been occurring for the past 6 months. We will continue scheduled Reglan 5 times a day as she feels this is improving symptoms. Continue on Macrobid for tx of UTI - day 4 Continue to monitor blood sugars. Currently on sliding scale insulin. May need to adjust as she eats more. Dietary consultation for calorie management Encourage continued work with PT and OT for ongoing strengthening Will check CBC and BMP for blood count, electrolyte and renal function monitoring. LYNDA LEO MD Sep 01, 2016 21:05
[2016-09-01] MEDS: ATORVASTATIN 40 MG TABLET PO SCH (21:19)
[2016-09-01] MEDS: ASPIRIN *EC* 81mg TABLET PO SCH (21:19)
[2016-09-01] MEDS: SERTRALINE 100 MG TABLET PO SCH (21:57)
[2016-09-01 22:54] VITALS: PULSE 93; RESP 16
--- NOTE | 2016-09-02 04:06 | NUR ---
Chart Check 24 hour chart check completed
[2016-09-02] MEDS: PANTOPRAZOLE 40 MG TABLET PO SCH (05:44)
--- NOTE | 2016-09-02 06:09 | NUR ---
Summary Patient was in bed at the beginning of this shift. She denied the need to use the restroom and has not went at all this shift. She has been tired tonight and has slept most the shift. She was in pleasant chatty mood for cares. She pivot transfers to the toilet/wheelchair/bed. She refused her SCDs tonight. She is in bed now with side rails up times two, bed alarm on and call light within reach. Addendum: 09/02/16 at 0641 by JIM STOVER RN Patient was up to the restroom this morning.
[2016-09-02] MEDS: METOCLOPRAMIDE 5mg TABLET PO SCH ×4 (06:17→22:28)
[2016-09-02] MEDS: SUCRALFATE 1 G TABLET PO SCH ×4 (06:30→22:00)
[2016-09-02 07:41] VITALS: BP 134/70; PULSE 87; RESP 18; TEMP 97.8; O2SAT 93
[2016-09-02 08:00] VITALS: PULSE 87; RESP 18
[2016-09-02] MEDS: POTASSIUM CHLORIDE 10 MEQ TABLET PO SCH ×2 (08:00→17:50)
[2016-09-02] MEDS: CALCIUM 600mg + VIT D 400 TABLET PO SCH ×2 (09:00→22:27)
[2016-09-02] MEDS: DOCUSATE SODIUM 100 MG CAPSULE PO SCH ×2 (10:02→21:00)
[2016-09-02] MEDS: NITROFURANTOIN (Macrobid) 100mg CAP PO SCH (10:02)
[2016-09-02] MEDS: LOSARTAN-HCTZ 50-12.5 MG TAB PO SCH (10:03)
[2016-09-02] MEDS: GABAPENTIN 100 MG CAPSULE PO SCH ×2 (10:03→22:27)
[2016-09-02] MEDS: PredniSONE 20 MG TABLET PO SCH (10:03)
[2016-09-02] MEDS: NYSTATIN POWDER 15gm BOTTLE TOP SCH ×2 (10:04→22:28)
[2016-09-02] MEDS: HYDROCODONE/APAP 5 mg/325 mg TABLET PO PRN (11:10)
[2016-09-02] MEDS: INSULIN ASPART 100 UNIT/ML SQ PRN ×3 (11:40→20:28)
--- NOTE | 2016-09-02 13:13 | PDIRUTEAM ---
Multidisciplinary Team Meeting Nursing Hx Incontinence: Yes Bladder Goal: 6 Modified [place] Cao Y/N: No Bladder Continent or Incontine: Incontinent Incontinent Product Used: Pull-up Number of Times Incontinent of: 0 Cleaning Ability-Bladder: 5 Supervision/Setup Bladder Incontinence Managemen: 4 Minimal Assistance Bowel Goal: 6 Modified [place] Colostomy Y/N: No Bowel Incontinent/Continent: Incontinent Bowel Number of Accidents: 1 Number of times Incontinent of: 1 Cleaning Ability-Bowel: 1 Total Assistance Colostomy Care: 1 Total Assistance Bowel Incontinence Management: 1 Total Assistance Toileting Ability: 4 Minimal Assistance Vital Signs Vital Signs Date Time Temp Pulse Resp B/P Pulse Ox O2 Delivery O2 Flow Rate FiO2 09/02/16 07:41 97.8 87 18 134/70 93 Room Air Current Medications Current Medications Medications (Trade) Dose Ordered Sig/Kemar Route PRN Reason Start Time Stop Time Status Last Admin Dose Admin Docusate Sodium (Colace) 100 mg BID PO 08/26/16 21:00 09/02/16 10:02 Aspirin (Ecotrin) 81 mg HS PO 08/26/16 22:00 09/01/16 21:19 Atorvastatin Calcium (LIPITOR 40 mg) 40 mg HS PO 08/26/16 22:00 09/01/16 21:19 Calcium/Vitamin D (Caltrate + D) 1 tab BID PO 08/26/16 21:00 09/01/16 08:35 Gabapentin (Neurontin) 200 mg BID PO 08/26/16 21:00 09/02/16 10:03 Acetaminophen/ Hydrocodone Bitart ([place] 7.5/325) 1 tab HS PO 08/26/16 22:00 08/29/16 22:34 HCTZ/Losartan Potassium (Hyzaar 50/12.5) 1 tab DAILY PO 08/27/16 09:00 09/02/16 10:03 Nitrofurantoin Macrocrystals (Macrobid) 100 mg WB PO 08/27/16 08:00 09/02/16 10:02 Nystatin (Nystatin Powder) 1 applic BID TOP 08/26/16 21:00 09/02/16 10:04 Ondansetron HCl (Zofran Odt) 4 mg Q8HR PO 08/27/16 01:00 08/31/16 04:29 DC 08/31/16 01:22 Pantoprazole Sodium (Protonix) 40 mg ACB PO 08/27/16 06:30 09/02/16 05:44 Potassium Chloride (Kdur) 10 meq BIDWM PO 08/27/16 08:00 08/30/16 18:05 Prednisone (PredniSONE) 20 mg DAILY PO 08/27/16 09:00 08/28/16 14:27 DC 08/28/16 09:01 Sertraline HCl (Zoloft) 150 mg HS PO 08/26/16 22:00 09/01/16 21:57 Sucralfate (Carafate) 1 g ACHS PO 08/26/16 22:00 08/31/16 06:09 Insulin Aspart (Novolog) SS PRN SQ 08/27/16 10:45 09/02/16 11:40 Metoclopramide HCl (Reglan) 5 mg ACHS PO 08/27/16 11:30 09/02/16 12:24 Acetaminophen (Tylenol Regular Strength) 650 mg QID PRN PO DISCOMFORT 08/28/16 07:00 08/28/16 12:31 Prednisone (PredniSONE) 20 mg WB PO 08/29/16 08:00 09/02/16 10:03 Acetaminophen/ Hydrocodone Bitart ([place] 5/325) 1 tab BID PRN PO PAIN 08/28/16 20:00 09/02/16 11:10 Ondansetron HCl (Zofran Odt) 4 mg Q4HR PRN PO NAUSEA &/OR VOMITING 08/31/16 04:30 09/01/16 16:33 Benzocaine (Americaine Hemorr. Oint.) 1 applic Q4H PRN TOP HEMORRHOIDS 08/31/16 15:30 09/01/16 21:24 Comments Refusing some meds. But constipation did improve over last few days. States she gets nauseated in dining room. Physical Therapy Bed Transfer Ability: 4 Minimal Assistance Bed Transfer Assistance Needed: 1 Person Chair Transfer Ability: 5 Supervision/Setup Chair Transfer Assistance Need: 1 Person Chair FIM Score Reason: Pt requires mod (A) for sit to stand and stand to sit. Overall Wheelchair Transfer Ab: 4 Minimal Assistance Wheelchair Transfer Assistance: 1 Person Wheelchair Transfer FIM Score: Pt requires mod (A) for sit to stand and stand to sit. Overall Toilet / Commode Trans: 4 Minimal Assistance Ambulation Ability: 1 Total Assistance Ambulation Assistance Needed: 1 Person Walk FIM Score Reason: Distance 4/7 Assist Ambulation Distance: 8 Comments Nausea very limiting. Pt also very fearful and in pain. Difficult to keep motivated. She seems motivated,but then cannot follow through. Occupational Therapy Grooming Ability: 6 Modified [place] Bathing Ability: 3 Moderate Assistance Upper Body Dressing Ability: 4 Minimal Assistance Lower Body Dressing Ability: 3 Moderate Assistance Lower Body Dressing Assistance: 1 Person Dressing-Lower FIM Score Reaso: Pt. required increased assistance for LB dressing due to feeling fatigued/nauseous. Toileting Assistance Needed: 1 Person Toileting FIM Score Reason: BM- unable to stand and clean self safely Comments FIMS may be artificially elevated as when not nauseated, she can hit better numbers, but is very inconcistent. Care Plan Condition at time of discharge: Fair IRU Discharge Disposition: Home Health Service Interventions/Goals Requires motivation to exercise. Family plan if she falls is to let her lie there and rest until she gets stronger and can get up. Barriers to d/c -- nutrition, motivation, endurance, strength, safety awareness. LYNDA LEO MD Sep 02, 2016 13:12
--- NOTE | 2016-09-02 13:25 | PNPDOC ---
Subjective Date DATE: 09/02/16 TIME: 13:23 Subjective Gina is seen today during breakfast, She states that she is feeling much better and nausea is gone. She verbalizes that her appetite seems better with soft foods. Denies having any chest pain, abdominal pain or shortness of breath. BP 134/70. Objective Vital Signs Vital signs Vital Signs Date Time Temp Pulse Resp B/P Pulse Ox O2 Delivery O2 Flow Rate FiO2 09/02/16 07:41 97.8 87 18 134/70 93 Room Air Height (Feet): 5 Height (Inches): 3.00 Weight (Kilograms): 87.600 General General Appearance: Alert, Orientated x 3, Cooperative, No Acute Distress Eyes (Brief) Eyes: FOUND: EOMI ENMT (Brief) ENMT: FOUND: mucosa moist, normal dentition, NOT FOUND: pharnyx erythema Neck (Brief) Neck: FOUND: midline, NOT FOUND: adenopathy, carotid bruits, tracheal deviation Respiratory (Brief) Respiratory: FOUND: clear all gonzalez, equal bilaterally, NOT FOUND: wheezes Cardiovascular (Brief) Cardiac: FOUND: regular rate, regular rhythm, NOT FOUND: murmur, pedal edema Capillary Refill: <2 sec Abdomen (Brief) Abdominal: FOUND: BS normo active x4, soft, NOT FOUND: distended, tender Lymphatic (Brief) Lymphatic: NOT FOUND: adenopathy Musculoskeletal (Brief) Musculoskeletal: NOT FOUND: tenderness Integumentary (Brief) Integumentary: FOUND: dry, pink, warm Neurologic (Brief) Neurological: FOUND: cranial 2-12 intact Psychiatric (Brief) Psychiatric: FOUND: alert, attentive, normal affect, oriented Assessment & Plan Problems: (1) Ambulatory dysfunction Status: Acute (2) Insulin dependent diabetes mellitus Status: Chronic (3) Duodenal ulcer Status: Chronic (4) Neuropathy Status: Chronic (5) Asthma Status: Chronic (6) Addisons disease Status: Chronic (7) GERD (gastroesophageal reflux disease) Status: Chronic (8) Hyperlipidemia Status: Chronic (9) Allergic rhinitis Status: Chronic (10) Depression Status: Chronic (11) Fibromyalgia Status: Chronic (12) Anxiety (13) Back pain Status: Chronic Plan/Intensity of Service 09/02/16 Discussed concern for mineral and protein calorie malnutrition with dietary. They recommend checking vitamin B12, zinc, and folate. Continue with scheduled Reglan as this seems to be improving nausea. Suspect possible gastroparesis as this nausea has been occurring for the past 6 months. Continue on Macrobid for tx of UTI - day 7 Continue to monitor blood sugars. Currently on sliding scale insulin. May need to adjust as she eats more. Encourage continued work with PT and OT for ongoing strengthening Patient verbalizes concerns for discharge planning issues does not feel that she can return home with her and tolerate steps. Code Status Full Code Hospital Course Summary Disclaimer The hospital course summary below is not to be considered part of the above Progress Note. Hospital Course Summary 08/28/16 Did obtain an EKG to rule out underlying cardiac ischemia. No significant change from previous EKG on 08/24 Upon reexamination, patient's discomfort has resided following sips of 7-Up. Discussed with patient about possibility of gastroparesis causing ongoing nausea for the past 6 months. If patient information and handout regarding possible gastroparesis. We will continue scheduled Reglan 5 times a day as this seems to be helping. Is on Macrobid Continue to monitor blood sugars. Currently on sliding scale insulin. Encourage continued work with PT and OT for ongoing strengthening 08/30/16 Discussed continual nausea. Suspect possible gastroparesis as this nausea has been occurring for the past 6 months. We will continue scheduled Reglan 5 times a day as she feels this is improving symptoms. Continue on Macrobid for tx of UTI - day 4 Continue to monitor blood sugars. Currently on sliding scale insulin. May need to adjust as she eats more. Dietary consultation for calorie management Encourage continued work with PT and OT for ongoing strengthening Will check CBC and BMP for blood count, electrolyte and renal function monitoring. TINO LYNCH APRN Sep 02, 2016 13:24
--- NOTE | 2016-09-02 15:27 | NUR ---
Dietary Consult F/U Pt seen at breakfast this am. Pt stated she was able to eat a banana on Friday, however it didn't taste right. Pt reports drinking milk when she can and it too doesn't taste right. Pt reports out side of that she hasn't had much appetite or ability to keep food down. PO intake remains inadequate Lab ordered for zinc and B12 M/E labs, intake and weight RD available at ext [phone]
--- NOTE | 2016-09-02 15:43 | NUR ---
status OT called nurse to BR. Patient c/o of light headed and dizzy during shower. BP 110/57, HR 107, O2 sats 95%. Assisted to w/c then to bed. Stated felt some better when lying down. Will continue to monitor.
[2016-09-02 16:25] VITALS: BP 116/61; PULSE 87; RESP 16; TEMP 97.8; O2SAT 95
--- NOTE | 2016-09-02 19:14 | NUR ---
Shift summary Patient alert and oriented x3. Some nausea this shift. Slliding scale insulin given at 1000 and 1400 today. Very poor appetite. Transfers with min assist to bed, chair, toilet with gait belt. Incontinent of urine x2 this shift. wears dentures. Patient worked with therapy this shift. Refused carafate x2 today. [place] given for pain this a.m after therapy in bilateral lower extremities.
[2016-09-02 19:35] VITALS: BP 127/65; PULSE 87; RESP 20; TEMP 97.6; O2SAT 97
[2016-09-02] MEDS: ATORVASTATIN 40 MG TABLET PO SCH (22:28)
[2016-09-02] MEDS: ASPIRIN *EC* 81mg TABLET PO SCH (22:28)
[2016-09-02] MEDS: SERTRALINE 100 MG TABLET PO SCH (22:29)
--- NOTE | 2016-09-02 22:58 | NUR ---
Shift Note Pivot transfers to wheelchair with assist of one and gait belt and back to bed. Independent with hygiene. Rates pain '7'; HS scheduled [place] given.
--- NOTE | 2016-09-02 23:53 | NUR ---
Pain Pt. states An hasn't helped her pain level yet, but denies needing anything further for pain at this time.
--- NOTE | 2016-09-03 00:35 | NUR ---
Chart Check 24 hour chart check completed
[2016-09-03] MEDS: SUCRALFATE 1 G TABLET PO SCH ×4 (06:30→21:58)
[2016-09-03] MEDS: METOCLOPRAMIDE 5mg TABLET PO SCH ×4 (06:39→21:58)
[2016-09-03] MEDS: PANTOPRAZOLE 40 MG TABLET PO SCH (06:39)
--- NOTE | 2016-09-03 06:45 | NUR ---
Shift Note Slept well overnight. Denies pain at this time.
[2016-09-03 07:36] VITALS: BP 141/69; PULSE 85; RESP 18; TEMP 97.9; O2SAT 95
[2016-09-03] MEDS: NYSTATIN POWDER 15gm BOTTLE TOP SCH ×2 (09:00→21:00)
[2016-09-03] MEDS: LOSARTAN-HCTZ 50-12.5 MG TAB PO SCH (09:07)
[2016-09-03] MEDS: GABAPENTIN 100 MG CAPSULE PO SCH ×2 (09:07→21:57)
[2016-09-03] MEDS: DOCUSATE SODIUM 100 MG CAPSULE PO SCH ×2 (09:08→21:56)
[2016-09-03] MEDS: NITROFURANTOIN (Macrobid) 100mg CAP PO SCH (09:08)
[2016-09-03] MEDS: CALCIUM 600mg + VIT D 400 TABLET PO SCH ×2 (09:08→21:56)
[2016-09-03] MEDS: PredniSONE 20 MG TABLET PO SCH (09:08)
[2016-09-03] MEDS: POTASSIUM CHLORIDE 10 MEQ TABLET PO SCH ×2 (09:08→17:33)
[2016-09-03] MEDS: INSULIN ASPART 100 UNIT/ML SQ PRN ×2 (10:16→14:49)
--- NOTE | 2016-09-03 11:36 | NUR ---
MIRIAN THIS WORKER SPOKE WITH PT RE: D/C PLAN. PT STATED HER IS LOOKING AT HOUSES AT THE MOMENT, STATING HE FEELS THEIR HOME IS NOT SAFE FOR HER TO RETURN AND THEY NEED A 2 BED 2 BATH HOME. PT AGREED TO J[facility], STATING SHE DOES NOT HAVE A PREFERENCE. THIS WORKER REVIEWED IRU PLAN OF CARE WITH PT AND PT SIGNED. PT AGREED FOR THIS WORKER TO OPEN PORTALS TO [facility].
--- NOTE | 2016-09-03 15:03 | NUR ---
CM PT'S SPOUSE SPOKE WITH THIS WORKER. HE CONFIRMED THAT HE WAS AGREEABLE TO SNU AND REQUESTED [facility] OR [facility]. LEFT MESSAGE WITH SASKIA AT ; OPENED PORTAL. CALLED STEPH AT [facility]. SHE SAID THEY HAVE A SEMI PRIVATE ROOM AVAILABLE, IF PT IS AGREEABLE TO THAT. OPENED PORTAL.
[2016-09-03 16:00] VITALS: BP 116/66; PULSE 93; RESP 24; TEMP 98; O2SAT 93
--- NOTE | 2016-09-03 16:00 | NUR ---
CM MESSAGE FROM [facility], THEY ARE FULL. CALL FROM STEPH WITH [facility]; NOT ABLE TO ACCEPT. LEFT MESSAGE WITH LAILA AT [facility], AND OPENED PORTAL. CALLED KAL AT [facility], WHO SAID [facility] WILL CALL THIS WORKER ABOUT AVAILABILITY.
--- NOTE | 2016-09-03 18:20 | PNPDOC ---
Subjective Date DATE: 09/03/16 TIME: 18:06 Subjective Gina was seen for follow-up. She reports she was able to walk from her room to the car in therapy. She describes being occasionally lightheaded and reports that she "went down" in the bathroom today but was able to get herself up using her arms. She denied injuries. She reports that she is thirsty all the time and feels dehydrated but is voiding well and now she isn't. Nausea has improved with Reglan although she continues to have some regurgitation intermittently. Variable pain, typically controlled with current regimen. Objective Vital Signs Vital signs Vital Signs Date Time Temp Pulse Resp B/P Pulse Ox O2 Delivery O2 Flow Rate FiO2 09/03/16 16:00 98.0 93 24 116/66 93 Room Air The patient is alert and cooperative. She is moderately cushingoid. Conjugate gaze, conjunctiva clear, sclera anicteric, oral membranes are dry. There is bruising on both forearms left greater than right. Respirations are nonlabored with good airflow and clear lung gonzalez anteriorly Regular cardiac rhythm Abdomen is soft and nontender, no mass palpable Without peripheral edema Height (Feet): 5 Height (Inches): 3.00 Weight (Kilograms): 85.500 Laboratory Laboratory Accu-Cheks tend to run high ranging 181-228 in the past 24 hours. Assessment & Plan Problems: (1) Ambulatory dysfunction Status: Acute (2) Insulin dependent diabetes mellitus Status: Chronic (3) Duodenal ulcer Status: Chronic (4) Neuropathy Status: Chronic (5) Asthma Status: Chronic (6) Addisons disease Status: Chronic (7) GERD (gastroesophageal reflux disease) Status: Chronic (8) Hyperlipidemia Status: Chronic (9) Allergic rhinitis Status: Chronic (10) Depression Status: Chronic (11) Fibromyalgia Status: Chronic (12) Anxiety (13) Back pain Status: Chronic Assessment Blood sugars in adequately controlled, increased frequency of Accu-Cheks to 4 times a day (fasting/2 hours after meals) Resume basal insulin with Lantus 5 units at bedtime (previously on Toujeo 6 units at bedtime) Continue corrective scale insulin. Suggested progress with initiation of metoclopramide, continue to monitor. Blood pressure stable. B 12/folic acid pending Plan/Intensity of Service Laboratory data reviewed, discussed with nursing. Code Status Full Code Hospital Course Summary Disclaimer The hospital course summary below is not to be considered part of the above Progress Note. Hospital Course Summary 08/28/16 Did obtain an EKG to rule out underlying cardiac ischemia. No significant change from previous EKG on 08/24 Upon reexamination, patient's discomfort has resided following sips of 7-Up. Discussed with patient about possibility of gastroparesis causing ongoing nausea for the past 6 months. If patient information and handout regarding possible gastroparesis. We will continue scheduled Reglan 5 times a day as this seems to be helping. Is on Macrobid Continue to monitor blood sugars. Currently on sliding scale insulin. Encourage continued work with PT and OT for ongoing strengthening 08/30/16 Discussed continual nausea. Suspect possible gastroparesis as this nausea has been occurring for the past 6 months. We will continue scheduled Reglan 5 times a day as she feels this is improving symptoms. Continue on Macrobid for tx of UTI - day 4 Continue to monitor blood sugars. Currently on sliding scale insulin. May need to adjust as she eats more. Dietary consultation for calorie management Encourage continued work with PT and OT for ongoing strengthening Will check CBC and BMP for blood count, electrolyte and renal function monitoring. 09/03/16-Edgard Blood sugars in adequately controlled, increased frequency of Accu-Cheks to 4 times a day (fasting/2 hours after meals) Resume basal insulin with Lantus 5 units at bedtime (previously on Toujeo 6 units at bedtime) Continue corrective scale insulin. Suggested progress with initiation of metoclopramide, continue to monitor. Blood pressure stable. MILA CHO MD Sep 03, 2016 18:11
[2016-09-03 20:20] VITALS: BP 128/65; PULSE 90; RESP 16; TEMP 97.9; O2SAT 100
--- NOTE | 2016-09-03 20:46 | NUR ---
SHIFT SUMMARY PT HAS BEEN PLEASANT AND COOPERATIVE. HAS BEEN OUT TO DINING ROOM FOR MEALS. PT HAS COMPLAINED OF SOME NAUSEA, AND NOT WANTING TO EAT. THE SCHEDULED REGLAN DOES SEEM TO HELP WITH THE NAUSEA BUT THE DECREASED APPETITE HAS NOT IMPROVED. PT PIVOT TRANSFERS TO WHEELCHAIR. WEARS ORTHOTIC SHOES WHEN UP DURING THE DAY.
[2016-09-03] MEDS: ATORVASTATIN 40 MG TABLET PO SCH (21:58)
[2016-09-03] MEDS: ASPIRIN *EC* 81mg TABLET PO SCH (21:58)
[2016-09-03] MEDS: SERTRALINE 100 MG TABLET PO SCH (21:59)
[2016-09-03] MEDS: INSULIN GLARGINE 100 UNIT/ML SQ SCH (22:04)
[2016-09-04] VITALS: BP 128/65; PULSE 90; RESP 16; TEMP 97.9; O2SAT 100
--- NOTE | 2016-09-04 05:20 | NUR ---
End of Shift Summary: Alert and orientated. Able to verbally express needs, concerns and thoughts appropriately. Took only a few steps during the shift. Moves self to side of bed; then moves to W/C with stand by assistance. Uses w/c for mobility to bathroom where she then moves self to toilet, with stand by assistance. Voids on toilet. Wears pull ups. Became nauseated and vomited a little after taking HS meds last night. Taking sips of lemon-otoe-[place] soda helped settle her stomach. Refused HS dose of [place] last night. Pt. reports she does not have pain and does not want to take NORCO unless she really has to.
[2016-09-04] MEDS: SUCRALFATE 1 G TABLET PO SCH ×4 (07:27→22:00)
[2016-09-04] MEDS: PANTOPRAZOLE 40 MG TABLET PO SCH (07:27)
[2016-09-04] MEDS: METOCLOPRAMIDE 5mg TABLET PO SCH ×4 (07:27→21:37)
[2016-09-04 08:00] VITALS: BP 104/59; PULSE 91; RESP 16; TEMP 97.6; O2SAT 93
[2016-09-04] MEDS: ONDANSETRON ODT 4 MG TAB PO PRN (08:58)
[2016-09-04] MEDS: NYSTATIN POWDER 15gm BOTTLE TOP SCH ×2 (09:00→21:00)
[2016-09-04] MEDS: NITROFURANTOIN (Macrobid) 100mg CAP PO SCH (09:06)
[2016-09-04] MEDS: DOCUSATE SODIUM 100 MG CAPSULE PO SCH ×2 (09:06→21:36)
[2016-09-04] MEDS: GABAPENTIN 100 MG CAPSULE PO SCH ×2 (09:06→21:36)
[2016-09-04] MEDS: HYDROCODONE/APAP 5 mg/325 mg TABLET PO PRN (09:06)
[2016-09-04] MEDS: CALCIUM 600mg + VIT D 400 TABLET PO SCH ×2 (09:06→21:37)
[2016-09-04] MEDS: PredniSONE 20 MG TABLET PO SCH (09:07)
[2016-09-04] MEDS: POTASSIUM CHLORIDE 10 MEQ TABLET PO SCH ×2 (09:07→17:44)
[2016-09-04] MEDS: LOSARTAN-HCTZ 50-12.5 MG TAB PO SCH (09:07)
[2016-09-04] MEDS: INSULIN ASPART 100 UNIT/ML SQ PRN ×2 (10:24→14:26)
--- NOTE | 2016-09-04 11:32 | PNPDOC ---
Subjective Date DATE: 09/04/16 TIME: 11:23 Subjective Gina is seen today follow-up. She continues to have intermittent nausea and vomiting. She continues to be unable to keep down in oral nutrients. Complains of having nausea intermittently that disrupts therapy and activity. Currently she denies having any abdominal pain, shortness of breath. Reports after receiving pills last evening she had heart burn and "acid" sensation all night. . Objective Vital Signs Vital signs Vital Signs Date Time Temp Pulse Resp B/P Pulse Ox O2 Delivery O2 Flow Rate FiO2 09/04/16 08:00 97.6 91 16 104/59 93 Room Air Height (Feet): 5 Height (Inches): 3.00 Weight (Kilograms): 85.500 General General Appearance: Alert, Orientated x 3, Cooperative, No Acute Distress Eyes (Brief) Eyes: FOUND: EOMI ENMT (Brief) ENMT: FOUND: mucosa moist, normal dentition, NOT FOUND: pharnyx erythema Neck (Brief) Neck: FOUND: midline, NOT FOUND: adenopathy, carotid bruits, tracheal deviation Respiratory (Brief) Respiratory: FOUND: clear all gonzalez, equal bilaterally, NOT FOUND: wheezes Cardiovascular (Brief) Cardiac: FOUND: regular rate, regular rhythm, NOT FOUND: murmur, pedal edema Capillary Refill: <2 sec Abdomen (Brief) Abdominal: FOUND: BS normo active x4, soft, NOT FOUND: distended, tender Lymphatic (Brief) Lymphatic: NOT FOUND: adenopathy Musculoskeletal (Brief) Musculoskeletal: NOT FOUND: tenderness Integumentary (Brief) Integumentary: FOUND: dry, pink, warm Neurologic (Brief) Neurological: FOUND: cranial 2-12 intact Psychiatric (Brief) Psychiatric: FOUND: alert, attentive, normal affect, oriented Assessment & Plan Problems: (1) Ambulatory dysfunction Status: Acute (2) Insulin dependent diabetes mellitus Status: Chronic (3) Duodenal ulcer Status: Chronic (4) Neuropathy Status: Chronic (5) Asthma Status: Chronic (6) Addisons disease Status: Chronic (7) GERD (gastroesophageal reflux disease) Status: Chronic (8) Hyperlipidemia Status: Chronic (9) Allergic rhinitis Status: Chronic (10) Depression Status: Chronic (11) Fibromyalgia Status: Chronic (12) Anxiety (13) Back pain Status: Chronic (14) Anorexia Status: Acute (15) Nausea Status: Acute Plan/Intensity of Service 09/04/16 Overall nutrition is a concern. Vit B12 is normal, Folate is on the low end of normal, Zinc is pending She has essentially had no nutritional intake over the past 5 days that she has kept in. She continues on scheduled Reglan, Carafate and Protonix. Concern that she may need supplemental nutrition. Discussed Dobbhoff vs TPN. Will check CBC and BMP today to monitor blood counts, renal function and electrolytes Will discontinues Macrobid as she has received 7 days of treatment for UTI. Will discuss further plan of care with Dr Rene Code Status Full Code Hospital Course Summary Disclaimer The hospital course summary below is not to be considered part of the above Progress Note. Hospital Course Summary 08/28/16 Did obtain an EKG to rule out underlying cardiac ischemia. No significant change from previous EKG on 08/24 Upon reexamination, patient's discomfort has resided following sips of 7-Up. Discussed with patient about possibility of gastroparesis causing ongoing nausea for the past 6 months. If patient information and handout regarding possible gastroparesis. We will continue scheduled Reglan 5 times a day as this seems to be helping. Is on Macrobid Continue to monitor blood sugars. Currently on sliding scale insulin. Encourage continued work with PT and OT for ongoing strengthening 08/30/16 Discussed continual nausea. Suspect possible gastroparesis as this nausea has been occurring for the past 6 months. We will continue scheduled Reglan 5 times a day as she feels this is improving symptoms. Continue on Macrobid for tx of UTI - day 4 Continue to monitor blood sugars. Currently on sliding scale insulin. May need to adjust as she eats more. Dietary consultation for calorie management Encourage continued work with PT and OT for ongoing strengthening Will check CBC and BMP for blood count, electrolyte and renal function monitoring. 09/03/16-Edgard Blood sugars in adequately controlled, increased frequency of Accu-Cheks to 4 times a day (fasting/2 hours after meals) Resume basal insulin with Lantus 5 units at bedtime (previously on Toujeo 6 units at bedtime) Continue corrective scale insulin. Suggested progress with initiation of metoclopramide, continue to monitor. Blood pressure stable. 09/04/16 Overall nutrition is a concern. Vit B12 is normal, Folate is on the low end of normal, Zinc is pending She has essentially had no nutritional intake over the past 5 days that she has kept in. She continues on scheduled Reglan, Carafate and Protonix. Concern that she may need supplemental nutrition. Discussed [place] vs TPN. Will check CBC and BMP today to monitor blood counts, renal function and electrolytes Will discontinues Macrobid as she has received 7 days of treatment for UTI. Will discuss further plan of care with TINO Sanchez APRN Sep 04, 2016 11:26
--- NOTE | 2016-09-04 13:51 | NUR ---
MIRIAN SPOKE WITH PT, RE: DC PLANNING. DISCUSSED STAY AT A SNU, AND PT STILL AGREEABLE TO THIS. SHE SAID SHE DOES NOT HAVE A HOME TO RETURN TO RIGHT NOW BECAUSE HER IS STILL LOOKING FOR ANOTHER PLACE TO LIVE (SINCE SHE CURRENTLY LIVES IN A [place] L[place] HOME AND CANNOT NAVIGATE THE STEPS). SHE SAID SHE INHERITED A LOT OF MONEY FROM HER FATHER SO SHE CAN AFFORD TO PAY PRIVATELY AT [facility] NEEDED. CALLED AND SPOKE WITH KELLIE AT [facility]. DISCUSSED REFERRAL, AND SHE SAID THEY COULD ACCEPT PT WHEN PT IS RELEASED. PLAN: TRANSFER TO [facility] FOR SNU WHEN DC'D FROM IRU. (CURRENTLY, PT'S NUTRITION ISSUES ARE BEING ADDRESSED AND PT IS NOT READY TO TRANSFER).
[2016-09-04 14:39] LABS: HCT - HEMATOCRIT 36.9 % (36-46); HGB - HEMOGLOBIN 12.1 GM/DL (12-16); MEAN CORPUSCULAR HGB 28.7 UUG (26-34); MEAN CORPUSCULAR HGB CONC(MCHC 32.8 GM/DL (31-37); MEAN CORPUSCULAR VOLUME 87.4 UM3 (80-100); MEAN PLATELET VOLUME 9.5 UM3 (9.4-12.4); RED BLOOD COUNT 4.22 M/MM3 (4.00-5.20); WBC - WHITE BLOOD COUNT 7.6 T/MM3 (4.5-11.0)
[2016-09-04 14:49] LABS: ANION GAP 17 MEQ/L (5-15); BUN/CREATININE RATIO 23 RATIO (6-26); CALCIUM 9.6 MG/DL (8.4-10.2); CHLORIDE 93 MEQ/L (98-107); CO2 - CARBON DIOXIDE 25 MEQ/L (22-30); CREATININE 0.6 MG/DL (0.7-1.2); GLOMERULAR FILTRATION RATE 102; GLUCOSE 238 MG/DL (65-110); POTASSIUM 3.4 MEQ/L (3.6-5); SODIUM 135 MEQ/L (134-144)
[2016-09-04 14:57] LABS: BAND NEUTROPHILS # 0.1 T/MM3; BURR CELLS 1+; LYMPHOCYTES # (MANUAL) 0.6 T/MM3 (1-4.8); METAMYELOCYTES # 0.1 T/MM3; MONOCYTES # (MANUAL) 0.4 T/MM3 (0-0.8); MYELOCYTES # 0.1 T/MM3; NEUTROPHILS #(MANUAL)-ABSOLUTE 6.4 T/MM3 (1.8-7.7); POIKILOCYTOSIS 1+; TOTAL CELLS COUNTED 100 %
[2016-09-04 16:16] VITALS: BP 152/78; PULSE 98; RESP 18; TEMP 97.3; O2SAT 98
--- NOTE | 2016-09-04 17:07 | NUR ---
Dietary Consult F/U R/T poor po intake Calorie count for 08/30/2016 shows intake of 4(8 oz) cartons of milk and 4 oz apple juice for total caloric intake of ~ 520 calories. Calorie Count for 08/31/2016 shows intake of 1 (8 oz) carton of milk only for total caloric intake of ~ 120 calories. Calorie Count for 09/01/2016 shows 0 intake Calorie Count for 09/02/2016 shows intake of bites only for all 3 meals Calorie Count for 09/03/2016 shows intake of bites only for all 3 meals ( Pt's brought per pt request [facility] mashed potatoes and gravy and fried chicken. Pt was only able to eat 1 bite of each followed with vomiting) Calorie Count for 09/04/2016 shows 0 intake for breakfast and 25% of lunch (which was milk and banana) for a total intake of ~60 calories. Pt states she had been eating regular meals with smaller portions up until ~ 1 1/2 months ago. Pt reports her appetite had decreased and then changed ~ 1 1/2 weeks ago right prior to admission to hospital. Pt reports symptoms are reminiscent when she had an ulcer last fall. Labs: Vitamin B12 422 WNL Folate 3.0 Low Normal (2.76 - 20) Zinc .57 L (.66 - 1.10) Lab results are supportive of severe malnutrition. Pt reports she is ready to consider other routes of nutrition so she can get stronger so she can do her therapy. PT photography assistant reports pt unable to do her therapy due to nausea and vomiting and decreased strength. ABBY conferred with MELYSSA Gonzalez regarding lab results and plan for feeding pt. RD recommends alternate route of nutrition to build pt's nutrition status due to pt's inadequate intake for >5 days and pt's decreased functional status and lab results. RD available at ext [phone]
--- NOTE | 2016-09-04 20:31 | PNPDOC ---
IRU Subjective Date DATE: 09/04/16 TIME: 20:29 Subjective Pt having difficulty with meals and nutrition. She is working with PT and OT, but has little energy. IRU Objective Vital Signs Vital signs Vital Signs Date Time Temp Pulse Resp B/P Pulse Ox O2 Delivery O2 Flow Rate FiO2 09/04/16 16:16 97.3 98 18 152/78 98 Room Air Height (Feet): 5 Height (Inches): 3.00 Weight (Kilograms): 85.500 General General Appearance: Alert, Orientated x 3 Respiratory (Brief) Respiratory: FOUND: clear all gonzalez, equal bilaterally Cardiovascular (Brief) Cardiac: FOUND: regular rate, regular rhythm Capillary Refill: <2 sec Laboratory Laboratory Laboratory Tests Test 09/03/16 10:06 09/03/16 14:34 09/04/16 10:14 09/04/16 14:14 Glucometer 181mg/dL 215mg/dL 176mg/dL White Blood Count 7.6T/MM3 Red Blood Count 4.22M/MM3 Hemoglobin 12.1GM/DL Hematocrit 36.9% Mean Corpuscular Volume 87.4UM3 Mean Corpuscular Hemoglobin 28.7UUG Mean Corpuscular Hemoglobin Concent 32.8GM/DL RDW Standard Deviation 47.4FL Platelet Count 264T/MM3 Mean Platelet Volume 9.5UM3 Immature Granulocyte % (Auto) % Neutrophils (%) (Auto) % Lymphocytes (%) (Auto) % Monocytes (%) (Auto) % Eosinophils (%) (Auto) % Basophils (%) (Auto) % Absolute Immature Granulocyte (auto T/MM3 Absolute Neutrophils (auto) T/MM3 Absolute Lymphocytes (auto) T/MM3 Absolute Monocytes (auto) T/MM3 Absolute Eosinophils (auto) T/MM3 Absolute Basophils (auto) T/MM3 Neutrophils % (Manual) 84.0% Band Neutrophils % 1.0% Lymphocytes % (Manual) 8.0% Monocytes % (Manual) 5.0% Metamyelocytes % 1.0% Myelocytes % 1.0% Absolute Neutrophils (Manual) 6.4T/MM3 Band Neutrophils # 0.1T/MM3 Lymphocytes # (Manual) 0.6T/MM3 Monocytes # (Manual) 0.4T/MM3 Metamyelocytes # 0.1T/MM3 Myelocytes # 0.1T/MM3 Poikilocytosis 1+ Denio Cells 1+ Red Cell Morphology Comment Abnormal Turbidity < 20 Sodium Level 135MEQ/L Potassium Level 3.4MEQ/L Chloride Level 93MEQ/L Carbon Dioxide Level 25MEQ/L Anion Gap 17MEQ/L Blood Urea Nitrogen 14.0MG/DL Creatinine 0.6MG/DL Glomerular Filtration Rate Calc 102 BUN/Creatinine Ratio 23RATIO Glucose Level 238MG/DL Calculated Osmolality 269MOSM/KG Calcium Level 9.6MG/DL Icterus Index < 2 Chemistry Specimen Hemolysis < 15 Test 09/04/16 14:15 Glucometer 244mg/dL Assessment & Plan Problems: (1) Gait instability Assessment & Plan: continues. Pt has little energy or strength to put into exercises. Nutrition will be a major part of recovery from myopathy and weakness. PT and OT working to find appropriate plan of care. Reeval at team meeting. (2) UTI (urinary tract infection) Status: Acute Assessment & Plan: medical managing. (3) Addisons disease Status: Chronic Assessment & Plan: medical to follow. (4) Insulin dependent diabetes mellitus Status: Chronic Assessment & Plan: medical to manage Code Status Full Code Interventions to Obtain Goals PT Treatment Plan: Therapeutic Exercise, Gait Training, Functional Activities , Patient/Family Education, Balance/Proprioception OT Treatment Plan: ADL's (basic care), Ther. Exercise for ADL's, UE Functional Training, Balance Training, Pt./Family Education Hospital Course Summary Disclaimer The hospital course summary below is not to be considered part of the above Progress Note. Hospital Course Summary 08/28/16 Did obtain an EKG to rule out underlying cardiac ischemia. No significant change from previous EKG on 08/24 Upon reexamination, patient's discomfort has resided following sips of 7-Up. Discussed with patient about possibility of gastroparesis causing ongoing nausea for the past 6 months. If patient information and handout regarding possible gastroparesis. We will continue scheduled Reglan 5 times a day as this seems to be helping. Is on Macrobid Continue to monitor blood sugars. Currently on sliding scale insulin. Encourage continued work with PT and OT for ongoing strengthening 08/30/16 Discussed continual nausea. Suspect possible gastroparesis as this nausea has been occurring for the past 6 months. We will continue scheduled Reglan 5 times a day as she feels this is improving symptoms. Continue on Macrobid for tx of UTI - day 4 Continue to monitor blood sugars. Currently on sliding scale insulin. May need to adjust as she eats more. Dietary consultation for calorie management Encourage continued work with PT and OT for ongoing strengthening Will check CBC and BMP for blood count, electrolyte and renal function monitoring. 09/03/16-Edgard Blood sugars in adequately controlled, increased frequency of Accu-Cheks to 4 times a day (fasting/2 hours after meals) Resume basal insulin with Lantus 5 units at bedtime (previously on Toujeo 6 units at bedtime) Continue corrective scale insulin. Suggested progress with initiation of metoclopramide, continue to monitor. Blood pressure stable. 09/04/16 Overall nutrition is a concern. Vit B12 is normal, Folate is on the low end of normal, Zinc is pending She has essentially had no nutritional intake over the past 5 days that she has kept in. She continues on scheduled Reglan, Carafate and Protonix. Concern that she may need supplemental nutrition. Discussed Dobbhoff vs TPN. Will check CBC and BMP today to monitor blood counts, renal function and electrolytes Will discontinues Macrobid as she has received 7 days of treatment for UTI. Will discuss further plan of care with LYNDA Reyes MD Sep 04, 2016 20:31
[2016-09-04 21:02] VITALS: BP 119/55; PULSE 87; RESP 18; TEMP 98; O2SAT 97
--- NOTE | 2016-09-04 21:04 | NUR ---
SHIFT SUMMARY PT HAD A ROUGH NIGHT LAST NIGHT. PT REPORTED HAVING HEARTBURN AND NOT BEING ABLE TO SLEEP. PT DRY HEAVED WITH EVERY MEAL TODAY. EVERY TIME SHE TRIED TO EAT ANYTHING. PT IS TO GO FOR A NM STOMACH EMPTING STUDY TOMORROW MORNING. PT WENT TO DINING ROOM FOR MEALS BUT DID NOT EAT. PT WORKED WIT THERAPY IN THE AFTERNOON.
[2016-09-04] MEDS: ASPIRIN *EC* 81mg TABLET PO SCH (21:37)
[2016-09-04] MEDS: INSULIN GLARGINE 100 UNIT/ML SQ SCH (21:38)
[2016-09-04] MEDS: SERTRALINE 100 MG TABLET PO SCH (21:39)
[2016-09-04] MEDS: ATORVASTATIN 40 MG TABLET PO SCH (21:50)
--- NOTE | 2016-09-04 23:52 | NUR ---
Chart Check 24 hour chart check completed
[2016-09-05 00:18] VITALS: PULSE 87; RESP 18
--- NOTE | 2016-09-05 00:23 | NUR ---
Summary Patient in bed at the beginning of the shift. She Is alert and orientated times three, pleasant and cooperative. She denies nausea so far this shift, but did have pain to right hip and all over muscle aches so did not refuse HS Swink as she usually does. She is fatigued now and sleeping well with side rails up times two, bed alarm on land call light within reach.
[2016-09-05] MEDS: METOCLOPRAMIDE 5mg TABLET PO SCH ×4 (05:40→22:06)
[2016-09-05] MEDS: PANTOPRAZOLE 40 MG TABLET PO SCH (05:40)
[2016-09-05] MEDS: ACETAMINOPHEN 325 MG TABLET PO PRN (05:41)
[2016-09-05] MEDS: SUCRALFATE 1 G TABLET PO SCH ×4 (05:41→22:06)
--- NOTE | 2016-09-05 05:42 | NUR ---
Pain Rates pain '7'; reports right leg 'doesn't work and feels asleep'. Tylenol given.
[2016-09-05 05:48] VITALS: BP 135/68; PULSE 106; RESP 20; TEMP 98.1; O2SAT 98
[2016-09-05 08:00] VITALS: BP 163/94; PULSE 105; RESP 16; TEMP 97.9; O2SAT 98
--- NOTE | 2016-09-05 08:00 | NUR ---
RECEIVED REPORT PATIENT IS ALERT AND ORIENTED THIS MORNING. SCHEDULED AT [facility] FOR GASTRIC EMPTYING STUDY DUE TO PERSISTENCE NAUSEA. PATIENT IS ON RA THIS MORNING. DENIES ANY CONCERNS AT THIS TIME.
[2016-09-05] MEDS: NYSTATIN POWDER 15gm BOTTLE TOP SCH ×2 (10:07→20:20)
[2016-09-05] MEDS: LOSARTAN-HCTZ 50-12.5 MG TAB PO SCH (10:08)
[2016-09-05] MEDS: DOCUSATE SODIUM 100 MG CAPSULE PO SCH ×2 (10:08→20:14)
[2016-09-05] MEDS: PredniSONE 20 MG TABLET PO SCH (10:08)
[2016-09-05] MEDS: HYDROCODONE/APAP 5 mg/325 mg TABLET PO PRN (10:08)
[2016-09-05] MEDS: CALCIUM 600mg + VIT D 400 TABLET PO SCH ×2 (10:08→20:21)
[2016-09-05] MEDS: GABAPENTIN 100 MG CAPSULE PO SCH ×2 (10:08→20:21)
[2016-09-05] MEDS: POTASSIUM CHLORIDE 10 MEQ TABLET PO SCH ×2 (10:09→18:20)
--- NOTE | 2016-09-05 10:19 | DI ---
Indication: ITS.REASON: decreased appetite, persistent nausea PROCEDURE: NM GASTRIC EMPTYING STUDY: Encounter: Initial Comparison: None. Technique: The patient consumed only a small portion of the standard meal labeled with approximately 2.1 mCi of Tc-99m sulfur colloid. Anterior and posterior planar images were obtained and time/activity curves were calculated. Findings: Radiotracer is seen to progress from the gastric fundus to the antrum and into the small bowel. The calculated T-1/2 gastric emptying time is normal at approximately 77 minutes (normal range 45-110 minutes). Impression: Normal gastric emptying time, although the study was somewhat limited due to the minimal amount of ingested tracer. .
[2016-09-05 11:47] VITALS: BP 94/59; PULSE 112
--- NOTE | 2016-09-05 12:00 | NUR ---
BP PATIENT HAS FLUCTUATING BP. WAS HIGH THIS MORNING THEN LOW AFTER MEDICATION ADMINISTRATION. WILL CONTINUE TO MONITOR.
[2016-09-05] MEDS: INSULIN ASPART 100 UNIT/ML SQ PRN (15:55)
[2016-09-05 16:34] VITALS: BP 151/71; PULSE 97; RESP 20; TEMP 97.7; O2SAT 91
--- NOTE | 2016-09-05 17:11 | NUR ---
THERAPY PATIENT IS COOPERATIVE WITH THERAPY EXCEPT THAT SHE TIRES QUICKLY. PATIENT TRANSFERS WITH MINIMAL ASSISTANCE. MAY TAKE A FEW STEPS. PATIENT WAS ABLE TO WALK WITH THERAPY WELL BUT FOR ONLY VERY SHORT DISTANCES. PATIENT PATIENT IN THE GYM TODAY. NO CONCERNS WERE REPORTED. PATIENT MAY WHEEL HERSELF FOR SHORT DISTANCES WELL. PATIENT WAS UNAWARE THAT SHE HAD BOWEL INCONTINENCE TODAY. PATIENT WAS UNABLE TO CLEAN HERSELF INSTEAD SHE SMEARED HERSELF TRYING TO WIPE HERSELF. PATIENT WAS ABLE TO SIT ON SIDE OF BED BUT NEEDED 25% HELP AT TIMES TO FLASH DESIGNER HER LEGS TO BED.
--- NOTE | 2016-09-05 19:18 | NUR ---
EOS REPORT GIVEN TO SHAWN HOLLIDAY, ONCOMING NURSE.
[2016-09-05 22:00] VITALS: BP 127/71; PULSE 98; RESP 18; TEMP 98.4; O2SAT 92
[2016-09-05] MEDS: ASPIRIN *EC* 81mg TABLET PO SCH (22:06)
[2016-09-05] MEDS: ATORVASTATIN 40 MG TABLET PO SCH (22:06)
[2016-09-05] MEDS: SERTRALINE 100 MG TABLET PO SCH (22:07)
[2016-09-05] MEDS: INSULIN GLARGINE 100 UNIT/ML SQ SCH (22:19)
[2016-09-06] MEDS: ACETAMINOPHEN 325 MG TABLET PO PRN (01:47)
[2016-09-06] MEDS: PANTOPRAZOLE 40 MG TABLET PO SCH (06:12)
[2016-09-06] MEDS: METOCLOPRAMIDE 5mg TABLET PO SCH ×2 (06:12→13:17)
[2016-09-06] MEDS: SUCRALFATE 1 G TABLET PO SCH ×2 (06:12→13:17)
--- NOTE | 2016-09-06 06:55 | NUR ---
Summary Pt has taken meds whole two at a time with water. Complaint of pain in R foot 02/25 managed with [place] 7.5 and tylenol. Pt says Tylenol helps more than the [place]. Pt has small bruise to back of R heel which she states "its from my boot". Pt slept well through night. Pt awake in bed resting at this time
[2016-09-06 08:00] VITALS: BP 131/69; PULSE 90; RESP 12; TEMP 98.4; O2SAT 96
[2016-09-06] MEDS: DOCUSATE SODIUM 100 MG CAPSULE PO SCH (09:00)
[2016-09-06] MEDS ORDERED: ZINC 50 MG PO SCH (09:00)
[2016-09-06] MEDS: NYSTATIN POWDER 15gm BOTTLE TOP SCH (09:00)
[2016-09-06] MEDS ORDERED: LOPERAMIDE 2 MG CAPSULE PO ONE (09:30)
[2016-09-06] MEDS: CALCIUM 600mg + VIT D 400 TABLET PO SCH (09:44)
[2016-09-06] MEDS: LOSARTAN-HCTZ 50-12.5 MG TAB PO SCH (09:45)
[2016-09-06] MEDS: GABAPENTIN 100 MG CAPSULE PO SCH (09:45)
[2016-09-06] MEDS: POTASSIUM CHLORIDE 10 MEQ TABLET PO SCH (09:46)
[2016-09-06] MEDS: PredniSONE 20 MG TABLET PO SCH (09:46)
--- NOTE | 2016-09-06 09:51 | NUR ---
CM ANTICIPATED DC TODAY. CALLED KELLIE AT [facility], SHE WILL FOLLOW UP WITH TRANSPORTATION TIME. SPOKE WITH PT ABOUT THIS. SHE WAS AWARE AND AGREEABLE. REVIEWED IM WITH HER, SHE SIGNED WITH NO QUESTIONS/CONCERNS. Addendum: 09/06/16 at 0952 by LUIS E WILBURN Amended: Links added.
[2016-09-06] MEDS: INSULIN ASPART 100 UNIT/ML SQ PRN (10:18)
[2016-09-06] MEDS ORDERED: ZINC50TA4 PO (11:49)
[2016-09-06] MEDS ORDERED: [UNRECOGNIZED DRUG - CODE] PO (11:49)
[2016-09-06] MEDS ORDERED: METO5TAB2 PO (11:49)
[2016-09-06] MEDS ORDERED: HYDR-4072 PO (11:49)
[2016-09-06] MEDS ORDERED: BENZ30OI7 TOP (11:49)
[2016-09-06] MEDS ORDERED: ONDA4TAB10 PO (11:49)
[2016-09-06] MEDS ORDERED: INSU100V8 SQ (11:49)
--- NOTE | 2016-09-06 11:56 | PDOCECFAO ---
Admission Orders Admission Orders Admit to: [facility] Allergies: Coded Allergies: amoxicillin trihydrate (Verified Allergy, Severe, 08/24/16) meperidine HCl (Verified Allergy, Severe, 08/24/16) potassium clavulanate (Verified Allergy, Severe, 08/24/16) cephalexin (Verified Allergy, Intermediate, RASH, 08/24/16) promethazine (Verified Allergy, Unknown, 08/24/16) Admitting Diagnosis Multiple Falls Admitting Physician Jesse Leo MD Code Status Full Code Anticipated LOS: 30 days or less Rehab Potential: Good Rehab Prognosis: Good Wound/Incision Care: na Evaluations/Treat: PT, OT, As Needed [facility] Certification I certify that SNF services are required to be given on an Inpatient basis because of the patients need for longterm care on a continuing basis for the condition(s) for which he/she received inpatient hospital services prior to his/her transfer to the SNF. SNF inpatient care is necessary for the following reasons [facility] JESSE LEO MD Sep 06, 2016 11:56
--- NOTE | 2016-09-06 13:41 | NUR ---
SHIFT SUMMARY PT REFUSED TO GO TO BREAKFAST AND LUNCH. PT DID TAKE MEDICATIONS. WORKED WITH THERAPY. PT'S WAS BEDSIDE UP UNTIL DISCHARGE.
--- NOTE | 2016-09-06 13:47 | NUR ---
DISCHARGE NOTE PT WAS IN STABLE CONDITION UPON DISCHARGE. PT PIVOT TRANSFERRED TO [facility] TRANSPORT CHAIR. DISCHARGE INSTRUCTIONS WERE GONE OVER WITH PT, SHE DID NOT WANT MEDICATIONS TO BE GONE OVER WIT HER REQUESTED THAT THE LIST JUST BE GIVEN TO THE NURSE AT [facility]. REPORT WAS CALLED TO SOLOMON AT [facility].
--- NOTE | 2016-09-06 14:10 | NUR ---
MIRIAN FAXED ORDERS TO KELLIE AT [facility]. CALLED TO CONFIRM RECEIPT. SHE HAD NO FURTHER QUESTIONS/NEEDS FOR THIS WORKER.
--- NOTE | 2016-09-09 15:00 | DSPDOC ---
General Date Date DATE: 09/06/16 TIME: 14:58 Attending Physician Jesse Leo MD Admitting Physician Jesse Leo MD Consulting Physician Luli Elaine Admitting Diagnosis multiple falls, myopathy, diabetes Discharge Diagnosis Type II diabetes Bowie's disease Hypertension Depression Ulcers Hyperlipidemia chronic back pain Osteoarthritis Fibromyalgia Anxiety history of melanoma Myopathy with multiple falls. History of Present Illness 61 year old female with generalized weakness and instability from chronic debility and weight loss of 60 pounds since may. She was most recently admitted to [facility] [place] with [place] on 08/24. She has had numerous falls over the last months and had documented fall while admitted for UTI. She is unable to safely provide self ADL's due to her weakness and decreasing coordination. Hospital Course 08/28/16 Did obtain an EKG to rule out underlying cardiac ischemia. No significant change from previous EKG on 08/24 Upon reexamination, patient's discomfort has resided following sips of 7-Up. Discussed with patient about possibility of gastroparesis causing ongoing nausea for the past 6 months. If patient information and handout regarding possible gastroparesis. We will continue scheduled Reglan 5 times a day as this seems to be helping. Is on Macrobid Continue to monitor blood sugars. Currently on sliding scale insulin. Encourage continued work with PT and OT for ongoing strengthening 08/30/16 Discussed continual nausea. Suspect possible gastroparesis as this nausea has been occurring for the past 6 months. We will continue scheduled Reglan 5 times a day as she feels this is improving symptoms. Continue on Macrobid for tx of UTI - day 4 Continue to monitor blood sugars. Currently on sliding scale insulin. May need to adjust as she eats more. Dietary consultation for calorie management Encourage continued work with PT and OT for ongoing strengthening Will check CBC and BMP for blood count, electrolyte and renal function monitoring. 09/03/16-Edgard Blood sugars in adequately controlled, increased frequency of Accu-Cheks to 4 times a day (fasting/2 hours after meals) Resume basal insulin with Lantus 5 units at bedtime (previously on Toujeo 6 units at bedtime) Continue corrective scale insulin. Suggested progress with initiation of metoclopramide, continue to monitor. Blood pressure stable. 09/04/16 Overall nutrition is a concern. Vit B12 is normal, Folate is on the low end of normal, Zinc is pending She has essentially had no nutritional intake over the past 5 days that she has kept in. She continues on scheduled Reglan, Carafate and Protonix. Concern that she may need supplemental nutrition. Discussed Dobbhoff vs TPN. Will check CBC and BMP today to monitor blood counts, renal function and electrolytes Will discontinues Macrobid as she has received 7 days of treatment for UTI. Will discuss further plan of care with Dr Rene 09/06/16 Nutrition will be worked on at long-term. At this time are holding off on top off or TPN. Supplement zinc B12 and folate as needed. Patient being discharged to skilled facility for continued physical therapy and assistance she is not ready to manage ADLs. She is shows significant improvement with FIM scores, please see those. Problems: (1) Ambulatory dysfunction Status: Acute (2) Insulin dependent diabetes mellitus Status: Chronic (3) Duodenal ulcer Status: Chronic (4) Neuropathy Status: Chronic (5) Asthma Status: Chronic (6) Addisons disease Status: Chronic (7) GERD (gastroesophageal reflux disease) Status: Chronic (8) Hyperlipidemia Status: Chronic (9) Allergic rhinitis Status: Chronic (10) Depression Status: Chronic (11) Fibromyalgia Status: Chronic (12) Anxiety (13) Back pain Status: Chronic (14) Anorexia Status: Acute (15) Nausea Status: Acute Code Status Full Code Home Meds Active Scripts Benzocaine (Americaine) 28 Gm Oint...g., 1 APPLIC TOP Q4H Y for HEMORRHOIDS for 30 Days, G Prov:TINO LYNCH APRN 09/06/16 Insulin Glargine,Hum.rec.anlog (Lantus) 100 Unit/Ml Inj, 5 UNIT SQ HS, #30 Prov:TINO LYNCH APRN 09/06/16 Ondansetron (Ondansetron Odt) 4 Mg Tab.rapdis, 4 MG PO Q4HR Y for NAUSEA &/OR VOMITING for 30 Days Prov:TINO LYNCH APRN 09/06/16 Metoclopramide HCl (Metoclopramide HCl) 5 Mg Tablet, 5 MG PO ACHS for 30 Days, # 120 TAB Prov:TINO LYNCH APRN 09/06/16 Zinc Gluconate (Zinc) 50 Mg Tablet, 50 MG PO DAILY, #20 TAB Prov:TINO LYNCH APRN 09/06/16 Hydrocodone/Acetaminophen (Hydrocodon-Acetaminoph 7.5-325) 7.5-325 Tablet, 1 TAB PO HS, #30 TAB Prov:[place] HEIDENTINO APRN 09/06/16 Alprazolam (Alprazolam) 0.25 Mg Tab.rapdis, 0.25 MG PO BID Y for ANXIETY for 30 Days, #30 Prov:TINO LYNCH APRN 09/06/16 Potassium Chloride (Klor-Con M10) 10 Meq Tablet, 10 MEQ PO BIDWM for hypokalemia , #10 TAB Prov:LINDY WOODSON MD 08/26/16 Calcium Carbonate/Vitamin D3 (Calcium 600 + Vit D 400 Tablet) 1 Each Tablet, 1 TAB PO BID, #100 TAB Prov:LINDY WOODSON MD 08/26/16 Reported Medications Aspirin *EC* (Aspirin EC) 81 Mg Tablet.dr, 81 MG PO HS 08/22/16 Atorvastatin Calcium (Atorvastatin Calcium) 40 Mg Tablet, 40 MG PO HS 04/27/16 Sucralfate (Sucralfate) 1 Gm Tablet, 1 GM PO ACHS 04/27/16 Prednisone (Prednisone) 10 Mg Tablet, 20 MG PO DAILY 04/27/16 Pantoprazole Sodium (Protonix) 40 Mg Tablet.dr, 40 MG PO ACB 04/27/16 Losartan/Hydrochlorothiazide (Losartan-Hctz 50-12.5 mg Tab) 1 Each Tablet, 1 TAB PO DAILY 11/05/14 Gabapentin (Gabapentin) 100 Mg Capsule, 200 MG PO BID 09/21/11 Sertraline Hcl (Zoloft) 100 Mg Tablet, 150 MG PO HS 09/21/11 Discontinued Reported Medications Nitrofurantoin Monohyd/M-Cryst (Macrobid 100 mg Capsule) 100 Mg Capsule, 1 CAP PO WB for UTI 08/22/16 Insulin Aspart (Novolog Flexpen) 1 Unit Pen, 8 UNIT SQ TIDWM 04/27/16 Hydrocodone/Apap ([place] 7.5-325 Tablet) 7.5-325 Tablet, 1 TAB PO HS, #1 TAB 03/04/16 Insulin Glargine,Hum.rec.anlog (Toujeo Solostar) 300 Unit/1 Ml Insuln.pen, 6 UNIT SQ HS 03/04/16 Discontinued Scripts Nystatin (Nystatin) 50,000,000 Unit Powder.ea., 1 APPLIC TOP BID for 7 Days Prov:LINDY WOODSON MD 08/26/16 Ondansetron (Zofran Odt) 4 Mg Tab.rapdis, 4 MG PO Q8HR, #7 TAB 0 Refills Orally disintegrating tablet Prov:CHEIR FARIAS APRN 08/22/16 Face to Face Encounter I met with patient on the day of dismissal and discussed follow up appointments , medications, and safety plan. Discharge Disposition [facility] facility JESSE LEO MD Sep 09, 2016 15:00
== END 2016-09-06 13:20 | DRG 945 ==
PROVIDERS: ADMIT Family Medicine; ATTEND Family Medicine
PROC: F07Z9FZ Gait Training/Functional Ambulation Treatment using Assistive, Adaptive, Supportive or Protective Equipment (ICD-10-PCS; principal; 2016-08-26)
PROC: F07M6ZZ Therapeutic Exercise Treatment of Musculoskeletal System - Whole Body (ICD-10-PCS; 2016-08-26)
PROC: F08Z4ZZ Home Management Treatment (ICD-10-PCS; 2016-08-26)
DX: R53.81 Other malaise (principal); N39.0 Urinary tract infection, site not specified; E27.1 Primary adrenocortical insufficiency; G72.9 Myopathy, unspecified; R26.89 Other abnormalities of gait and mobility; K26.7 Chronic duodenal ulcer without hemorrhage or perforation; Z91.81 History of falling; E11.9 Type 2 diabetes mellitus without complications; I10 Essential (primary) hypertension; F32.9 Major depressive disorder, single episode, unspecified; E78.5 Hyperlipidemia, unspecified; G89.29 Other chronic pain; M54.9 Dorsalgia, unspecified; M19.91 Primary osteoarthritis, unspecified site; M79.7 Fibromyalgia; F41.9 Anxiety disorder, unspecified; Z79.82 Long term (current) use of aspirin; Z79.52 Long term (current) use of systemic steroids; Z79.4 Long term (current) use of insulin
CPT/HCPCS: 36415; 36416; 80048; 82607; 82746; 82948; 84630; 85025; 93005

== ENCOUNTER 2016-09-13 04:37 | Emergency (ER) | payer MEDICARE ==
[~2016-09-13] VITALS: Ht 157.5 cm; Wt 81.1 kg
[2016-09-13 04:37] VITALS: Ht 157.5 cm; Wt 81.1 kg
[~2016-09-13 04:37] MED LIST changes: +BENZ30OI7 TOP; +HYDR-4072 PO; -HYDR-4074 PO; -INSU100I3 SQ; +INSU100V8 SQ; -INSU300I SQ; +METO5TAB2 PO; -NITR100C4 PO; -NYST10PO TOP; +ONDA4TAB10 PO; -ONDA4TAB7 PO; +ZINC50TA4 PO
--- OUTSIDE RECORDS SUMMARY | 2016-09-13 04:42 | XMS REPORT | Continuity of Care Document ---
Author Author [facility] Organization [facility] Address Unknown Phone Unavailable Support Name Relationship Address Phone IRINA BORGES II, MD Caregiver [address] [place] [address] Unavailable LYNDA LEO MD Caregiver [address] [place] [address] Unavailable LYNDA LEO MD Caregiver [address] [place] [address] Unavailable LYNDA MERCADO Next Of Kin [address] [place] [address] Insurance Providers Guarantor Jose Alejandro Mercado Address [address] [place] [address] Email DENIED 08-26-16 Payer Medicare Policy Number [id number] Subscriber's Name Jose Alejandro Mercado Relationship 18 Self Effective Date 09 Advance Directives Directive Response Recorded Date/Time Ordered Resuscitation Status Full Code 08/26/16 8:05pm Resuscitation Documents on File No 08/26/16 5:16pm DPOA for Healthcare Only No 08/27/16 2:31pm Living Will No 08/26/16 5:16pm Problems Active Problems Medical Problem Onset Date Status Acute gastroenteritis Unknown Resolved Addisonian crisis Unknown Resolved Addisons disease Unknown Chronic Allergic rhinitis Unknown Chronic Altered mental status Unknown Ambulatory dysfunction Unknown Acute Anemia Unknown Anorexia Unknown Acute Anxiety Unknown Asthma Unknown Chronic Back pain Unknown Chronic Cellulitis of left foot Unknown Dehydration Unknown Resolved Depression Unknown Chronic Diabetes Unknown Chronic Duodenal ulcer Unknown Chronic Fibromyalgia Unknown Chronic Foot ulcer Unknown GERD (gastroesophageal reflux disease) Unknown Chronic Gait instability Unknown Hyperlipidemia Unknown Chronic Hypertension Unknown Chronic Hypertension, accelerated Unknown Acute Hypokalemia Unknown Acute Insulin dependent diabetes mellitus Unknown Chronic Melanoma Unknown Multiple falls Unknown Acute Nausea Unknown Acute Neuropathy Unknown Chronic Obesity Unknown Chronic Obesity (BMI 30-39.9) Unknown Obesity (BMI 35.0-39.9 without comorbidity) Unknown Chronic Osteoarthritis Unknown Chronic ST elevation (STEMI) myocardial infarction Unknown UTI (urinary tract infection) Unknown Acute Vestibular neuronitis Unknown Chronic Past Problems Medical [...] Twice A Day as needed for Anxiety 30 Days 30 09/06/16 Aspirin (Aspirin Ec) 81 Mg Tablet.dr 81 Mg Oral Bedtime 08/22/16 Atorvastatin Calcium 40 Mg Tablet 40 Mg Oral Bedtime 04/27/16 Benzocaine (Americaine) 28 Gm Oint...g. 1 Applic Topically Every 4 Hours as needed for Hemorrhoids 30 Days 09/06/16 Calcium Carbonate/Vitamin D3 (Calcium 600 + Vit D 400 Tablet) 1 Each Tablet 1 Tab Oral Twice A Day 100 Tablet 08/26/16 Gabapentin 100 Mg Capsule 200 Mg Oral Twice A Day 09/21/11 Hydrocodone/Acetaminophen (Hydrocodon-Acetaminoph 7.5-325) 7.5-325 Tablet 1 Tab Oral Bedtime 30 Tablet 09/06/16 Insulin Glargine,Hum.rec.anlog (Lantus) 100 Unit/Ml Inj 5 Unit Sub-Q Bedtime 30 09/06/16 Losartan/Hydrochlorothiazide (Losartan-Hctz 50-12.5 Mg Tab) 1 Each Tablet 1 Tab Oral Daily 11/05/14 Metoclopramide Hcl 5 Mg Tablet 5 Mg Oral Before Meals And At Bedtime 30 Days 120 Tablet 09/06/16 Ondansetron (Ondansetron Odt) 4 Mg Tab.rapdis 4 Mg Oral Every 4 Hours as needed for Nausea &/Or Vomiting 30 Days 09/06/16 Pantoprazole Sodium (Protonix) 40 Mg Tablet.dr 40 Mg Oral Before Breakfast 04/27/16 Potassium Chloride (Klor-Con M10) 10 Meq Tablet 10 Meq Oral Twice Daily With Meals for Hypokalemia 10 Tablet 08/26/16 Prednisone 10 Mg Tablet 20 Mg Oral Daily 04/27/16 Sertraline Hcl (Zoloft) 100 Mg Tablet 150 Mg Oral Bedtime Sucralfate 1 Gm Tablet 1 Gm Oral Before Meals And At Bedtime 03/03 Zinc Gluconate (Zinc) 50 Mg Tablet 50 Mg Oral Daily 20 Tablet 09/06 Past Home Medications Medication Directions Ordered Status Acetaminophen/Codeine Phosphate (Tylenol #3) 1 Tab Tablet, as needed Discontinued Acetaminophen/Hydrocodone Bitart ([place] 7.5-325 Tablet) 7.5-325 Tablet, 1 Tab Oral Bedtime 03/04/16 Discontinued Alprazolam 0.25 Mg Tab.rapdis, 0.25 Mg Oral Twice A Day as needed for Anxiety 05/28/14 Discontinued Hydrochlorothiazide 25 Mg Tablet, 12.5 Mg Oral Daily 05/21/12 Discontinued Hydrochlorothiazide 12.5 Mg Capsule, 6.25 Mg Oral Daily 09/21/11 Discontinued Insulin Aspart (Novolog Flexpen) 1 Unit Pen, 8 Unit Sub-Q Three Times Daily With Meals 04/27/16 Discontinued Insulin Aspart (Novolog) 100 Unit/Ml Inj, 12 Unit Sub-Q Three Times A Day Discontinued Insulin Glargine,Hum.rec.anlog ([place] Solostjuliane) 300 Unit/1 Ml Insuln.pen, 6 Unit Sub-Q Bedtime 03/04/16 Discontinued Losartan/Hydrochlorothiazide (Losartan-Hctz 50-12.5 Mg Tab) 1 Each Tablet, Daily 05/28/14 Discontinued Nitrofurantoin Monohyd/M-Cryst (Macrobid 100 Mg Capsule) 100 Mg Capsule, 1 Cap Oral Give With Breakfast for Uti 08/22/16 Discontinued Nystatin 50,000,000 Unit Powder.ea., 1 Applic Topically Twice A Day 08/26/16 Discontinued Ondansetron (Zofran Odt) 4 Mg Tab.rapdis, 4 Mg Oral Q8h @ 0100/0900/1700 11/02 Discontinued Prednisone 20 Mg Tablet, 20 Mg [...] 08/21/2013 4:48pm Unknown Active Reason for Hospitalization weakness, falls 09/06/2016 12:35pm Not Applicable Not Applicable Chewing Tobacco Status No 08/21/2013 3:22pm Not Applicable Not Applicable Hx Substance Use No 08/24/2016 4:29pm Not Applicable Not Applicable Hx Alcohol Use No 08/24/2016 4:29pm Not Applicable Not Applicable Has the pt used tobacco in the last 12 months No 08/26/2016 5:16pm Not Applicable Not Applicable Tobacco Usage none 06/03/2014 3:34pm Not Applicable Not Applicable Query Response Start Date Stop Date Smoking Status Never smoker Hospital Discharge Instructions Instructions: Care Instructions: Reason for Hospitalization: weakness, falls I was in the hospital because (patient own words): Can't walk very good Discharge Diet: reg with zinc supplementation Discharge Activity: as tolerated Follow Up Appointments: Dr. Balaji Borges on 09/17/16 at 2:45 pm for Hosp. follow-up. [address] [place] [address]. . Pending Lab / Results: No Pending Lab Patient Instructions: It is important that you take carafate, reglan and protonix to protect your stomach and allow you to digest food properly. Wound/Incision Care: na Durable Medical Equipment: none Pain Management/Treatment: [place] as prescribed Expected Signs/Symptoms: weakness, fatigue Notify Physician If: fever, diarrhea During Business Hours:: Please call the physician's office at numbers listed above After Business Hours:: Please call [phone] and have the cement production plant operator page the physician. Condition at time of discharge: Fair Plan of Care Discharge Date 09/06/16 1:20pm Disposition 03 TO U NOT [facility] (SNF) Instructions/Education Provided Gastroesophageal Reflux Disease (DC) Diabetic Foot Ulcers (DC) Prescriptions See Medication Section Care Plan and Goals See Discharge Instructions Section Functional Status Query Response Date Recorded Mobility Status Transfer w/assist September 06, 2016 12:35pm Assistive Devices Wheelchair September 06, 2016 12:35pm Activity Limitations Weakness September 06, 2016 12:35pm Feeding Ability Independent September 06, 2016 12:35pm Toileting Ability Assist September 06, 2016 12:35pm Grooming Ability Assist September 06, 2016 12:35pm Dressing Ability Assist September 06, 2016 12:35pm Driving Ability Dependent September 06, 2016 12:35pm Housework Ability Dependent September 06, 2016 12:35pm Meal Preparation Ability Dependent September 06, 2016 12:35pm Stair Climbing Ability Dependent September 06, 2016 12:35pm Ability to complete ADL's impeded by Impaired Mobility September 06, 2016 12:35pm Cognitive/Perceptual Impairments None September 06, 2016 12:35pm Preferred Method of Learning Listening Hands on September 04, 2016 6:26pm Allergies, Adverse Reactions, Alerts Allergen Type Severity Reaction Status Last Updated meperidine HCl Allergy Severe Active 08/24/16 amoxicillin trihydrate Allergy Severe Active 08/24/16 potassium clavulanate Allergy Severe Active 08/24/16 Cephalexin Allergy Intermediate RASH Active 08/24/16 Promethazine Allergy Unknown Active 08/24/16 Immunizations Query Response on File Recorded Date/Time Hx Influenza Vaccination No 08/26/16 5:16pm Hx Pneumococcal Vaccination No 08/26/16 5:16pm Hx Tetanus, Diptheria, Pertussis No 11/19/14 1:41pm Hx Influenza Vaccination No 08/26/16 5:16pm Hx Tetanus Diptheria No 08/24/16 5:00pm Hx Tetanus, Diptheria, Pertussis No 11/19/14 1:41pm Hx Tetanus Toxoid Vaccination No 08/24/16 5:00pm Influenza Vaccine Hx NONE 08/24/16 5:00pm Vital Signs Acute Vital Signs Vital Response Date/Time Temperature (Fahrenheit) 98.4 deg F (96.8 - 99.1) 09/06/2016 8:00am Temperature (Calculated Celsius) 36.97136 degrees C (36.0 - 37.3) 09/06/2016 8:00am Pulse Rate (adult) 90 bpm (60 - 100) 09/06/2016 8:00am Respiratory Rate 12 breaths/min (10 - 20) 09/06/2016 8:00am O2 Sat by Pulse Oximetry 96 % (90 - 100) 09/06/2016 8:00am Oxygen Delivery Method Room Air 09/06/2016 8:00am Oxygen Flow Rate 2.00 L/min 08/22/2016 6:42pm Blood Pressure 131/69 mm Hg 09/06/2016 8:00am Blood Pressure Source Automatic Cuff 09/06/2016 8:00am Height (Feet) 5 feet 09/04/2016 11:32am Height (Inches) 3.00 inches 09/04/2016 11:32am Weight (Kilograms) 85.500 kg 09/03/2016 6:45am Body Mass Index (BMI) 34.2 08/26/2016 5:16pm Results Laboratory Results Test Name Result Units [...] - sepsis or septic shock highly indicated. Total Bilirubin 0.70 MG/DL 0.20-1.30 08/26/2016 4:47am 08/26/2016 5: 31am Unconjugated Bilirubin 0.30 MG/DL 0.00-1.10 08/24/2016 3:47pm 2016 5:19pm Conjugated Bilirubin 0.00 MG/DL 0.00-0.30 08/24/2016 3:47pm 08/24/2016 5:19pm Alkaline Phosphatase 57 U/L 38-126 08/26/2016 4:47am 08/26/2016 5:31am Total Protein 5.3 G/DL L 6.3-8.2 08/26/2016 4:47am 08/26/2016 5:31am Albumin 3.0 G/DL L 3.5-5.0 08/26/2016 4:47am 08/26/2016 5:31am Globulin 2.3 G/DL L 2.4-3.6 08/26/2016 4:47am 08/26/2016 5:31am Albumin/Globulin Ratio 1.3 RATIO 1.1-2.2 08/26/2016 4:47am 08/26/2016 5 :31am Aspartate Amino Transf (AST/SGOT) 50 [...] 5:19pm Urine Collection Type STRAIGHT CATH 08/24/2016 4:pm 08/24/2016 4: 19pm Urine Color YELLOW YELLOW 08/24/2016 4:pm 08/24/2016 4:19pm Urine Turbidity CLEAR CLEAR 08/24/2016 4:09pm 08/24/2016 4:19pm Urine Specific [place] >=1.030 H 1.015-1.025 08/24/2016 4:pm 2016 4:19pm Urine pH 5.5 5.0-8.0 08/24/2016 4:09pm 08/24/2016 4:19pm Urine Leukocyte Esterase NEGATIVE NEGATIVE 08/24/2016 4:09pm 2016 4:19pm Urine Nitrite NEGATIVE NEGATIVE 08/24/2016 4:09pm 08/24/2016 4:19pm Urine Protein TRACE A NEGATIVE 08/24/2016 4:09pm 08/24/2016 4:19pm Urine Glucose (UA) NEGATIVE NEGATIVE 08/24/2016 4:09pm 08/24/2016 4: 19pm Urine Ketones 3+ A NEGATIVE 08/24/2016 4:09pm 08/24/2016 4:19pm Urine Urobilinogen 0.2 EU/DL NORMAL 08/24/2016 4:09pm 08/24/2016 4: 19pm Urine Bilirubin 2+ A NEGATIVE 08/24/2016 4:09pm 08/24/2016 4:19pm Urine Blood NEGATIVE NEGATIVE 08/24/2016 4:09pm 08/24/2016 4:19pm Urinalysis Comment MICROSCOPIC NOT IND. 08/24/2016 4:09pm 2016 4:19pm White Blood Count 7.6 T/MM3 4.5-11.0 09/04/2016 2:14pm 09/04/2016 2: 41pm Red Blood Count 4.22 M/MM3 4.00-5.20 09/04/2016 2:14pm 09/04/2016 2: 41pm Hemoglobin 12.1 GM/DL 12-16 09/04/2016 2:1409/04/2016 2:41pm Hematocrit 36.9 % 36-46 09/04/2016 2:1409/04/2016 2:41pm Mean Corpuscular Volume 87.4 UM3 80-100 09/04/2016 2:14pm 09/04/2016 2: 41pm Mean Corpuscular Hemoglobin 28.7 UUG 26-34 09/04/2016 2:14pm 2016 2:41pm Mean Corpuscular Hemoglobin Concent 32.8 GM/DL 31-37 09/04/2016 2:09/04/2016 2:41pm RDW Standard Deviation 47.4 FL 36.9-50.2 09/04/2016 2:09/04/2016 2 :41pm Platelet Count 264 T/MM3 130-400 09/04/2016 2:1409/04/2016 2:41pm Mean Platelet Volume 9.5 UM3 9.4-12.4 09/04/2016 2:14pm 09/04/2016 2: 41pm Neutrophils (%) (Auto) 60.6 % 33-66 08/27/2016 4:56am 08/27/2016 5: 53am Lymphocytes (%) (Auto) 26.9 % 23-45 08/27/2016 4:56am 08/27/2016 5: 53am Monocytes (%) (Auto) 9.5 % H 0-9.0 08/27/2016 4:56am 08/27/2016 5:53am Eosinophils (%) (Auto) 1.7 % 0-4 08/27/2016 4:56am 08/27/2016 5:53am Basophils (%) (Auto) 0.4 % 0-2 08/27/2016 4:56am 08/27/2016 5:53am Immature Granulocyte % (Auto) 0.9 % H 0.0-0.5 08/27/2016 4:56am 2016 5:53am Absolute Neutrophils (auto) 3.2 T/MM3 1.8-7.7 08/27/2016 4:56am 2016 5:53am Absolute Lymphocytes (auto) 1.4 T/MM3 1-4.8 08/27/2016 4:56am 2016 5:53am Absolute Monocytes (auto) 0.5 T/MM3 0-0.8 08/27/2016 4:56am 08/27/2016 5:53am Absolute Eosinophils (auto) 0.1 T/MM3 0-0.5 08/27/2016 4:56am 2016 5:53am Absolute Basophils (auto) 0.0 T/MM3 0-0.2 08/27/2016 4:56am 08/27/2016 5:53am Absolute Immature Granulocyte (auto 0.05 T/MM3 H 0.00-0.03 08/27/2016 4: 56am 08/27/2016 5:53am Neutrophils % (Manual) 84.0 % H 33-66 09/04/2016 2:14pm 09/04/2016 2: 57pm Band Neutrophils % 1.0 % 0-6 09/04/2016 2:14pm 09/04/2016 2:57pm Lymphocytes % (Manual) 8.0 % L 23-45 09/04/2016 2:14pm 09/04/2016 2: 57pm Monocytes % (Manual) 5.0 % 0-9.0 09/04/2016 2:14pm 09/04/2016 2:57pm Metamyelocytes % 1.0 % H 0-0 09/04/2016 2:14pm 09/04/2016 2:57pm Myelocytes % 1.0 % H 0-0 09/04/2016 2:09/04/2016 2:57pm Band Neutrophils # 0.1 T/MM3 09/04/2016 2:pm 09/04/2016 2:57pm Absolute Neutrophils (Manual) 6.4 T/MM3 1.8-7.7 09/04/2016 2:09/04 2:57pm Lymphocytes # (Manual) 0.6 T/MM3 L 1-4.8 09/04/2016 2:pm 09/04/2016 2: 57pm Monocytes # (Manual) 0.4 T/MM3 0-0.8 09/04/2016 2:09/04/2016 2: 57pm Metamyelocytes # 0.1 T/MM3 09/04/2016 2:pm 09/04/2016 2:57pm Myelocytes # 0.1 T/MM3 09/04/2016 2:09/04/2016 2:57pm Red Cell Morphology Comment ABNORMAL 09/04/2016 2:pm 09/04/2016 2 :57pm Poikilocytosis 1+ 09/04/2016 2:pm 09/04/2016 2:57pm Ethan Cells 1+ 09/04/2016 2:pm 09/04/2016 2:57pm Icterus Index < 2 0-7 09/04/2016 2:09/04/2016 2:49pm Chemistry Specimen Hemolysis < 15 0-25 09/04/2016 2:09/04/2016 2 :49pm 0-25: Specimen Exhibited No Hemolysis. Turbidity < 20 0-20 09/04/2016 2:pm 09/04/2016 2:49pm Sodium Level 135 MEQ/L 134-144 09/04/2016 2:09/04/2016 2:49pm Potassium Level 3.4 MEQ/L L 3.6-5 09/04/2016 2:09/04/2016 2:49pm Chloride Level 93 MEQ/L L 98-107 09/04/2016 2:09/04/2016 2:49pm Carbon Dioxide Level 25 MEQ/L 22-30 09/04/2016 2:09/04/2016 2: 49pm Anion Gap 17 MEQ/L H 5-15 09/04/2016 2:14pm 09/04/2016 2:49pm Blood Urea Nitrogen 14.0 MG/DL 7-17 09/04/2016 2:14pm 09/04/2016 2: 49pm Creatinine 0.6 MG/DL L 0.7-1.2 09/04/2016 2:14pm 09/04/2016 2:49pm BUN/Creatinine Ratio 23 RATIO 6-26 09/04/2016 2:14pm 09/04/2016 2:49pm Glomerular Filtration Rate Calc 102 09/04/2016 2:14pm 09/04/2016 2: 49pm Glucose Level 238 MG/DL H 65-110 09/04/2016 2:14pm 09/04/2016 2:49pm Calculated Osmolality 269 MOSM/KG 261-280 09/04/2016 2:14pm 09/04/2016 2:49pm Calcium Level 9.6 MG/DL 8.4-10.2 09/04/2016 2:14pm 09/04/2016 2:49pm Vitamin B12 Level 422 PG/ML 239-931 09/02/2016 4:03pm 09/04/2016 2: 55am Folate 3.0 NG/ML 2.76-20 09/02/2016 4:04pm 09/04/2016 3:54am NORMAL ADULT RANGE: 2.76->20 ng/mL Zinc Level 0.57 mcg/mL L 09/02/2016 4:23pm 09/04/2016 3:28pm Reference Range: 0.66-1.10 ADDITIONAL INFORMATION This test was developed and its performance characteristics determined by [facility] in a manner consistent with CLIA requirements. This test has not been cleared or approved by the U.S. Food and Drug Administration. Test Performed by: [facility] - [address] [address] Zinc, Serum performed at [facility], [address] [place] [address] [address] Jia Armstrong MD Glucometer 190 mg/dL H 65-110 09/06/2016 10:06am 09/06/2016 10:14am Microbiology Results Procedure Source Organism/Result Collection Date/Time Result Date/Time Result Status Blood Culture Peripheral/Iv Start NO GROWTH AFTER 5 DAYS 08/22/2016 4:08pm 08/27/2016 4:10pm Final Name: JOSE ALEJANDRO MERCADO Unit #: [id number] : [id number] Sex: F Admit Date: 08/26/16 Loc / Svc: IRU Discharge Date: DIAGNOSTIC IMAGING REPORT Report #: [id number] [facility] SHERRI [place] Indication: ITS.REASON: decreased appetite, persistent nausea PROCEDURE: NM GASTRIC EMPTYING STUDY: Encounter: Initial Comparison: None. Technique: The patient consumed only a small portion of the standard meal labeled with approximately 2.1 mCi of Tc-99m sulfur colloid. Anterior and posterior planar images were obtained and time/activity curves were calculated. Findings: Radiotracer is seen to progress from the gastric fundus to the antrum and into the small bowel. The calculated T-1/2 gastric emptying time is normal at approximately 77 minutes (normal range 45-110 minutes). Impression: Normal gastric emptying time, although the study was somewhat limited due to the minimal amount of ingested tracer. . Procedures Procedure Status Date Provider(s) Urinalysis [...] Completed 08/22/16 Emergency dept visit Completed 08/22/16 [id number] ITEM OR SERVICE Completed 08/22/16 899999"INJECTION, ONDANSETRON HYDROCHLORIDE, PER 1 MG" Completed 08/22/16 181209"INJECTION, METOCLOPRAMIDE HCL, UP TO 10 MG" Completed 08/22/16 839397"INFUSION, NORMAL SALINE SOLUTION , 1000 CC" Completed 08/22/16 Routine venipuncture Completed 08/24/16 Routine venipuncture Completed 08/24/16 Ct head/brain w/o dye Completed 08/24/16 Chest x-ray 1 view frontal Completed 08/24/16 Ct neck spine w/o dye Completed 08/24/16 Metabolic panel total ca Completed 08/24/16 Comprehen metabolic panel Completed 08/24/16 Comprehen metabolic panel Completed 08/24/16 Urinalysis auto w/o scope Completed 08/24/16 Bilirubin direct Completed 08/24/16 Assay of ck (cpk) Completed 08/24/16 Reagent strip/blood glucose Completed 08/24/16 Reagent strip/blood glucose Completed 08/24/16 Reagent strip/blood glucose Completed 08/24/16 Reagent strip/blood glucose Completed 08/24/16 Reagent strip/blood glucose Completed 08/24/16 Reagent strip/blood glucose Completed 08/24/16 Reagent strip/blood glucose Completed 08/24/16 Reagent strip/blood glucose Completed 08/24/16 Reagent strip/blood glucose Completed 08/24/16 Reagent strip/blood glucose Completed 08/24/16 Reagent strip/blood glucose Completed 08/24/16 Assay of magnesium Completed 08/24/16 Assay of troponin quant Completed 08/24/16 Complete cbc w/auto diff wbc Completed 08/24/16 Complete cbc w/auto diff wbc Completed 08/24/16 Complete cbc w/auto diff wbc Completed 08/24/16 Electrocardiogram tracing Completed 08/24/16 Ther/proph/diag iv inf init Completed 08/24/16 Ther/proph/diag iv inf addon Completed 08/24/16 Pt eval high complex 45 min Completed 08/24/16 Ot eval high complex 60 min Completed 08/24/16 Therapeutic activities Completed 08/24/16 Emergency dept visit Completed 08/24/16 [id number] ITEM OR SERVICE Completed 08/24/16 [id number] ITEM OR SERVICE Completed 08/24/16 [id number] ITEM OR SERVICE Completed 08/24/16 [id number] ITEM OR SERVICE Completed 08/24/16 [id number] ITEM OR SERVICE Completed 08/24/16 [id number] ITEM OR SERVICE Completed 08/24/16 [id number] ITEM OR SERVICE Completed 08/24/16 771304UUN-HVWUKME ITEM OR SERVICE Completed 08/24/16 [id number] ITEM OR SERVICE Completed 08/24/16 739735NZV-RGGAPFG ITEM OR SERVICE Completed 08/24/16 [id number] ITEM OR SERVICE Completed 08/24/16 [id number]-CXFMRYA ITEM OR SERVICE Completed 08/24/16 [id number] ITEM OR SERVICE Completed 08/24/16 889136EWT-VPMQHGY ITEM OR SERVICE Completed 08/24/16 370442XNP-YALGDOH ITEM OR SERVICE Completed 08/24/16 [id number] ITEM OR SERVICE Completed 08/24/16 [id number] ITEM OR SERVICE Completed 08/24/16 [id number] ITEM OR SERVICE Completed 08/24/16 [id number] ITEM OR SERVICE Completed 08/24/16 [id number] ITEM OR SERVICE Completed 08/24/16 [id number] ITEM OR SERVICE Completed 08/24/16 623958HME-DYGMEPW ITEM OR SERVICE Completed 08/24/16 275134AYL-RSDCBGP ITEM OR SERVICE Completed 08/24/16 [id number] ITEM OR SERVICE Completed 08/24/16 [id number] ITEM OR SERVICE Completed 08/24/16 613261FFH-GSLYJCQ ITEM OR SERVICE Completed 08/24/16 [id number] ITEM OR SERVICE Completed 08/24/16 [id number] ITEM OR SERVICE Completed 08/24/16 [id number] ITEM OR SERVICE Completed 08/24/16 [id number] ITEM OR SERVICE Completed 04/08/17 322354"HOSPITAL OBSERVATION SERVICE, PER HOUR" Completed 08/24/16"HOSPITAL OBSERVATION SERVICE, PER HOUR" Completed 08/24/16"HOSPITAL OBSERVATION SERVICE, PER HOUR" Completed 08/24/16"HOSPITAL OBSERVATION SERVICE, PER HOUR" Completed 08/24/16"HOSPITAL OBSERVATION SERVICE, PER HOUR" Completed 08/24/16 PT MOBILITY CURRENT STATUS Completed 08/24/16 PT MOBILITY GOAL STATUS Completed 08/24/16 OT SELF CARE CURRENT STATUS Completed 08/24/16 OT SELF CARE GOAL STATUS Completed 08/24/16 OT SELF CARE GOAL STATUS Completed 08/24/16 OT SELF CARE DISCHG STATUS Completed 08/24/16"INJECTION, HYDROCORTISONE SODIUM SUCCINATE, UP TO 100 Completed "INJECTION, ONDANSETRON HYDROCHLORIDE, PER 1 MG" Completed 08/24/16"INJECTION, ONDANSETRON HYDROCHLORIDE, PER 1 MG" Completed 08/24/16"INJECTION, ONDANSETRON HYDROCHLORIDE, PER 1 MG" Completed 08/24/16"INJECTION, POTASSIUM CHLORIDE, PER 2 MEQ" Completed 08/24/16"INFUSION, NORMAL SALINE SOLUTION , 250 CC" Completed 08/24/16 PREDNISONE, 10 MG TAB Completed 08/24/16 PREDNISONE, 10 MG TAB Completed 08/24/16 Encounters Encounter Location Arrival/Admit Date Discharge/Depart Date Attending Provider Discharged Inpatient [facility] 08/26/16 5:05pm 09/06/16 1:20pm LYNDA LEO MD Discharged Inpatient (obs) [facility] 08/24/16 4:25pm 08/26/16 5: 02pm MILA CHO MD Departed Emergency Room [facility] 08/22/16 11:55am 08/22/16 6: 42pm JW ARROYO DO Registered Clinic [facility] 08/02/16 3:18pm IRINA BORGES II, MD Registered Clinic [facility] 08/01/16 2:45pm IRINA BORGES II, MD
--- OUTSIDE RECORDS SUMMARY | 2016-09-13 04:42 | XMS REPORT | Continuity of Care Document ---
Author Author [facility] Organization [facility] Address Unknown Phone Unavailable Allergies [...] Status Pt. Type Provider Facility Loc./Unit Complaint [id number] 04/12/2013 05:22:00 2012 17:30:00 DIS Inpatient Derek Mayer DO [facility] on [employer] F8SE [id number] 04/08/2013 08:28:00 2012 23:59:59 CLS Outpatient Derek Mayer DO [facility] on [facility]
--- OUTSIDE RECORDS SUMMARY | 2016-09-13 04:42 | XMS REPORT | Continuity of Care Document ---
Author Author [facility] Organization [facility] Address Unknown Phone Unavailable Support Name Relationship Address Phone KAJAL SANTIAGO MD Caregiver [facility] [address] [place] [address] Unavailable IRINA BORGES II, MD Caregiver [address] [place] [phone] JASWINDER ESCOBEDO MD Caregiver [address] [place] [phone] LYNDA MERCADO Next Of Kin [address] [id number] Insurance Providers Payer Name Policy Number Subscriber Name Relationship Medicare [id number] Jose Alejandro Mercado 19 Self Advance Directives [...] F (96.8 - 99.1) Temperature (Calculated Celsius) 36.59344 degrees C (36.0 - 37.3) Temperature Source [...] Has specimen been collected/obtained? Y Urine Specific [place] May 31, 2014 11:40am <=1.005 L - [...] 04, 2012 11:37am LAB TEST FORM REQUEST [id number] - Turbidity June 04, 2014 4:49am < [...] 9:53am Name: JOSE ALEJANDRO MERCADO Unit #: [id number] : 1955 Sex: F Loc / Svc: MED DOS: 05/28/14 Signed Report #: [id number] DIAGNOSTIC IMAGING REPORT TYPE OF EXAM: CHEST [...] procedures. Encounters Encounter Location Date/Time Discharged Inpatient [facility] 05/28/14 11:21am Recent Diagnosis Influenza B Addisons disease Hypoxemia Dehydration Chest pain Diabetes Hypertension
--- NOTE | 2016-09-13 04:50 | NUR ---
STATUS PT IS ROLLED TO HER SIDE. PT IS DRY HEAVING
--- NOTE | 2016-09-13 05:10 | ERPDOC ---
Departure Disposition Decision Date: Sep 13, 2016 Disposition Decision Time: 06:20 Disposition: 02 TO [facility] Impression Impression Impression: Primary Impression: Chest pain Chest pain type: unspecified Qualified Codes: R07.9 - Chest pain, unspecified Additional Impression: Abnormal ECG Severity: Moderate Condition: Improved Seen By: Physician only Referrals: IRINA BORGES II, MD (Family) Problems/Meds/Labs Reviewed?: Yes Medications reviewed and manag: Yes Follow up care ordered?: Yes Mental Status: Alert, Oriented Critical Care Note Total Time (mins): 37 Critical Care Spent: [id number] care of pt, Reviewing test results, Discuss the case w/staff, Documenting the MR, Discussion w/ family/DPOA HPI - General Medical General Chief Complaint: Chest Pain Stated Complaint: CHEST PAIN Time Seen by Provider: 04:46 Source: patient, family Exam Limitations: no limitations HPI - General Medical Initial Comments 61-year-old female presents to the emergency department with a chief complaint of chest pain. Patient noted onset of left-sided chest pain with radiation toward her arm at approximately 00:30 AM today. Patient states that she was in bed and the pain woke her from sleep. Pain is sharp. Pain was moderate in nature. Pain radiated toward the left arm. Patient was given 2 sublingual nitroglycerin and intravenous fentanyl by EMS with improvement of symptoms. Patient denies any other complaints or associated symptoms. Patient does note that the pain does feel slightly spasmatic and is reproducible with movement of the thorax. She was at [facility] for rehab when the symptoms began. Symptoms have been persistent in nature since onset. 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 Christine Past Medical History Metabolic: diabetes, hypertension, other ENMT: allergies Respiratory: asthma GI: GERD Female: UTI Neurological: fibromyalgia, neuropathy Musculoskeletal: osteoarthritis Integumentary: melanoma, other Psychological: anxiety, depression, drug abuse Surgical History General: appendix, gallbladder, other, tonsils Reproductive/: hysterectomy Joint: foot Family History Family PMH: FOUND: hypertension Vaccines Hx Influenza Vaccination: No Hx Pneumococcal Vaccination: No Hx Tetanus Diptheria: No Hx Tetanus, Diptheria, Pertuss: No Social History Smoking Status: Former smoker Does patient use chewing tobac: No Second Hand Exposure: No Substance Use Type: does not use Alcohol Intake: occasionally Marital Status: Sexuality: male partner Current Occupational Status: disabled Advance Directives: Yes Full Code Review of Systems Constitutional Constitutional: DENIES: chills, fever Eyes General: DENIES: erythema, exudate Lids/Accessories: DENIES: erythema, swelling Vision: DENIES: acuity, blurring ENMT Ears: DENIES: drainage, erythema Hearing: DENIES: hearing loss Balance: DENIES: ataxia, falling to one side Sinuses: DENIES: congestion, pain Nose: DENIES: nosebleeds, pain Mouth/Throat: DENIES: painful swallowing, sore throat Teeth: DENIES: pain Jaw: DENIES: pain Cardiovascular Cardiac: chest pain, DENIES: dyspnea on exertion Rhythm/Rate: DENIES: irregular beat, palpitations Vascular: DENIES: pedal edema, unilateral swelling Pulmonary Respiratory: DENIES: cough, dyspnea, pleuritic chest pain, sputum GI Upper Abdomen: DENIES: nausea, pain, vomiting Lower Abdomen: DENIES: diarrhea, pain General: DENIES: dysuria, frequency Musculoskeletal General: DENIES: joint pain, tenderness Integumentary Skin: DENIES: itching, rash Neurological General: DENIES: change in strength, headache, numbness, weakness Psychiatric Psychiatric: DENIES: emotional instability, suicidal ideation/attempt Endocrine Endocrine: DENIES: polydipsia, polyphagia Hematologic/Lymphatic Hematologic/Lymphatic: DENIES: frequent nosebleeds, lymphadenopathy Physical Exam General General Nourishment: well nourished, well developed, appears stated age, no acute distress, adult Pediatric General Nourishment: no acute distress General Body Habitus: well groomed Vitals and Pain First Documented Vital Signs Date Time Temp Pulse Resp B/P Pulse Ox O2 Delivery O2 Flow Rate FiO2 09/13/16 04:37 98.2 96 20 143/86 98 Room Air Weight: Kilograms: Height (feet): 5 Height (inches): 3.00 Triage Pain Scale: RN VS reviewed by Provider: Yes Normal Exams: Head: Normocephalic w/o trauma Eyes: Pupils are PERRLA w/ EOMI, No scleral icterus, irritation, or foreign bodies noted ENMT: No facial trauma, nasal exudates, pharyngeal erythema, or exudates are noted Dental: No fractured, loose, or missing teeth noted Neck: Full range of motion, without adenopathy, JVD, bruits or thyromegaly Chest/Resp: Clear all gonzalez, with good airflow, and symmetry bilaterally CV: Regular rate and rhythm, without murmur or gallop, Pulses 2+ all extremities, capillary refill, <2 seconds all ext., no pedal edema noted Abdomen: Bowel sounds positive, soft, non-tender, non-distended, no hepatosplenomegaly, masses or bruits noted Lymphatic: No lymphadenopathy, or lymphedema noted Musculoskeletal: No tenderness, or deformity noted, good range of motion, all extremities Integumentary: No rashes, hives, or bruising noted, hair and nails, without abnormality Neurologic: Patient is alert, and oriented, cranial nerves, motor/sensory/ cerebellar, exams w/o gross deficits, to observation Psychiatric: Patient exhibits, appropriate attention, emotion and affect Differential Diagnoses Considering: Acute [place], Other (Chest wall pain, atypical chest pain, ACS) Progress Results/Orders Orders Procedure Category Date Status Time Cbc W/Auto LAB 09/13/16 Complete Diff-Reflex Manual Cmp - Comprehensive LAB 09/13/16 Complete Metabolic Troponin I W LAB 09/13/16 Complete Hemolysis Index EKG EKG 09/13/16 Logged Chest 1 View RAD 09/13/16 Resulted 05:00 Ondansetron Inj PHA 09/13/16 Complete (Zofran) 05:15 Catheterize For Ua ROCIO 09/13/16 Complete 05:41 Bladder Scanner (Ed) EDM 09/13/16 Transmitted 06:06 UA, LAB 09/13/16 Complete Dip&Micro(Complete) & 06:02 Water For PHA 09/13/16 Complete Injection... 06:30 Aspirin (Asa) PHA 09/13/16 Complete 09:00 Normal Saline (Ns) PHA 09/13/16 Complete 06:30 Urine Culture KIM 09/13/16 In Process 06:52 Lactate - Lactic Acid LAB 09/13/16 Complete Lactate - Lactic Acid LAB 09/13/16 Complete 11:24 Water For PHA 09/13/16 Complete Injection... 07:15 Fentanyl (Fentanyl) PHA 09/13/16 Complete 07:15 Ondansetron Inj PHA 09/13/16 Complete (Zofran) 07:15 Normal Saline (Ns) PHA 09/13/16 Complete 09:45 Lab Results Laboratory Tests Test 09/13/16 05:07 09/13/16 06:02 09/13/16 07:17 09/13/16 11:24 White Blood Count 6.8T/MM3 Red Blood Count 4.33M/MM3 Hemoglobin 12.4GM/DL Hematocrit 36.9% Mean Corpuscular Volume 85.2UM3 Mean Corpuscular Hemoglobin 28.6UUG Mean Corpuscular Hemoglobin Concent 33.6GM/DL RDW Standard Deviation 43.5FL Platelet Count 280T/MM3 Mean Platelet Volume 9.5UM3 Immature Granulocyte % (Auto) 0.4% Neutrophils (%) (Auto) 78.5% Lymphocytes (%) (Auto) 12.1% Monocytes (%) (Auto) 8.8% Eosinophils (%) (Auto) 0.1% Basophils (%) (Auto) 0.1% Absolute Immature Granulocyte (auto 0.03T/MM3 Absolute Neutrophils (auto) 5.3T/MM3 Absolute Lymphocytes (auto) 0.8T/MM3 Absolute Monocytes (auto) 0.6T/MM3 Absolute Eosinophils (auto) 0.0T/MM3 Absolute Basophils (auto) 0.0T/MM3 Turbidity < 20 Sodium Level 139MEQ/L Potassium Level 2.7MEQ/L Chloride Level 98MEQ/L Carbon Dioxide Level 19MEQ/L Anion Gap 22MEQ/L Blood Urea Nitrogen 9.0MG/DL Creatinine 0.4MG/DL Glomerular Filtration Rate Calc 163 BUN/Creatinine Ratio 23RATIO Glucose Level 181MG/DL Calculated Osmolality 272MOSM/KG Calcium Level 8.6MG/DL Total Bilirubin 0.80MG/DL Icterus Index < 2 Aspartate Amino Transf (AST/SGOT) 83U/L Alanine Aminotransferase (ALT/SGPT) 65U/L Alkaline Phosphatase 79U/L Troponin I < 0.012ng/ml Total Protein 5.7G/DL Albumin 3.3G/DL Globulin 2.4G/DL Albumin/Globulin Ratio 1.4RATIO Chemistry Specimen Hemolysis < 15 Urine Collection Type Straight cath Urine Color Yellow Urine Turbidity Sl cloudy Urine pH 6.0 Urine Specific [place] >=1.030 Urine Protein 2+ Urine Glucose (UA) Trace Urine Ketones 3+ Urine Blood Trace-intact Urine Nitrite Negative Urine Bilirubin 2+ Urine Urobilinogen 1.0EU/DL Urine Leukocyte Esterase 1+ Urine RBC None seen/HPF Urine WBC 20-30/HPF Urine Amorphous Urates Moderate Urine Bacteria 2+ Urine Hyaline Casts 1-3/LPF Urine Mucus Present Urine Yeast 3+ Urine Culture Indicated Cult reflexed &setup Plasma Lactate 1.3MMOL/L 0.8MMOL/L Medications Current ED Medications Ondansetron HCl 4 mg 4 mg O ONCE IV Last administered on 09/13/16 05:16; Start 09/13/16 at 05:15; Stop 09/13/16 at 05:16; Status DC Potassium Chloride/Sterile Water (KCl/Water) 105 ml @ 100 mls/hr Q1H3M IV ; Start 09/13/16 at 06:30; Stop 09/13/16 at 06:42; Status DC Aspirin 324 mg 324 mg DAILY PO Last administered on 09/13/16 06:51; Start at 09:00; Stop 09/13/16 at 14:46; Status DC Sodium Chloride 500 ml @ 999 mls/hr Q31M ONCE IV Last administered on 06:51; Start 09/13/16 at 06:30; Stop 09/13/16 at 07:00; Status DC Potassium Chloride/Sterile Water (KCl/Water) 105 ml @ 100 mls/hr Q1H3M IV Last administered on 09/13/16 07:23; Start 09/13/16 at 07:15; Stop 09/13/16 at 11:26; Status DC Fentanyl (Fentanyl) 25 mcg O ONCE IV Last administered on 09/13/16 07:08; Start 09/13/16 at 07:15; Stop 09/13/16 at 07:16; Status DC Ondansetron HCl 4 mg 4 mg O ONCE IV Last administered on 09/13/16 07:09; Start 09/13/16 at 07:15; Stop 09/13/16 at 07:16; Status DC Sodium Chloride (NS) 500 ml @ 100 mls/hr Q5H ONCE IV Last administered on 09/13 09:45; Start 09/13/16 at 09:45; Stop 09/13/16 at 14:44; Status DC Progress Progress Labs / imaging were discussed in detail with the patient and family and questions are answered. Patient has received 2 sublingual nitroglycerin tablets and intravenous fentanyl with some improvement of symptoms. Patient is still experiencing chest discomfort. Patient is discussed with Dr. Oneill of cardiology who recommends transfer of patient to [facility] for further evaluation and treatment as her EKG shows ST depression in V3/V4 and V5/ V6. Patient was given gentle IV hydration. She was given potassium supplementation intravenously. Patient was given aspirin 324 mg by mouth times one. Patient was given additional analgesic pain medication with improvement of symptoms. Patient and family are in agreement with the current plan of management. Patient is stable for transfer at this time. Risk versus benefit of transfer is discussed in detail with the patient and family who verbalized agreement and understanding. Patient needs to be transferred for further evaluation and treatment by cardiology and potential intervention as the services are not currently available at [facility]. Patient will be accepted by Dr. Shah to [facility] ICU and Dr. Oneill will see the patient as a professional housing consultant. 37 Minutes of critical care time was assessed to the patient as the patient required complex medical decision-making, repeated assessment bedside, and had potential for decompensation. Patient was transferred to a cardiac center and had ST depressions in V3/V4 and V5/V6. Patient was transferred as she needed access to cardiac Insole Cementer at this time and it was not available at [facility] currently. She was discussed with Cardiology (Dr. Oneill) who is in agreement with the current plan of management. No further orders from Cardiology. Patient has no symptoms corresponding to a UTI. Will await results of urine culture prior to initiating antibiotic therapy. EKG EKG : Rate: 60-100 Rhythm: sinus [place]: normal QRS: normal Intervals: normal ST/T: other (NO STEMI. ST Depressions in V3/V4 and V5/V6. ) Interpreted by: signing physician Xray Xray : Xray: CXR Portable Interpretation: Normal, Interpreted by Me (Unchanged from comparison CXR. ) JW ARROYO DO Sep 13, 2016 05:09
[2016-09-13] MEDS ORDERED: ONDANSETRON 4mg/2ml INJECTION IV ONE ×2 (05:15→07:15)
[2016-09-13] MEDS ORDERED: ESOM40CA PO (05:21)
[2016-09-13] MEDS ORDERED: METH40VI33 IV (05:21)
[2016-09-13 05:26] LABS: BASOPHILS % (AUTO) 0.1 % (0-2); EOSINOPHILS % (AUTO) 0.1 % (0-4); HCT - HEMATOCRIT 36.9 % (36-46); HGB - HEMOGLOBIN 12.4 GM/DL (12-16); IMMATURE GRANULOCYTE # (AUTO) 0.03 T/MM3 (0.00-0.03); IMMATURE GRANULOCYTE % (AUTO) 0.4 % (0.0-0.5); LYMPHOCYTES # (AUTO) 0.8 T/MM3 (1-4.8); LYMPHOCYTES % (AUTO) 12.1 % (23-45); MEAN CORPUSCULAR HGB 28.6 UUG (26-34); MEAN CORPUSCULAR HGB CONC(MCHC 33.6 GM/DL (31-37); MEAN CORPUSCULAR VOLUME 85.2 UM3 (80-100); MEAN PLATELET VOLUME 9.5 UM3 (9.4-12.4); MONOCYTES # (AUTO) 0.6 T/MM3 (0-0.8); MONOCYTES % (AUTO) 8.8 % (0-9.0); NEUTROPHILS #(AUTO)-ABSOLUTE 5.3 T/MM3 (1.8-7.7); NEUTROPHILS % (AUTO) 78.5 % (33-66); RED BLOOD COUNT 4.33 M/MM3 (4.00-5.20); WBC - WHITE BLOOD COUNT 6.8 T/MM3 (4.5-11.0)
--- NOTE | 2016-09-13 05:29 | NUR ---
CXR PORTABLE CXR COMPLETED IN ROOM
--- OUTSIDE RECORDS SUMMARY | 2016-09-13 05:37 | XMS REPORT | Continuity of Care Document ---
Author Author [facility] ([facility]3] Organization [facility]3] Address Unknown Phone Unavailable Allergies Active Description [...] Status Pt. Type Provider Facility Loc./Unit Complaint [id number] 04/12/2013 05:22:00 2012 17:30:00 DIS Inpatient Derek Mayer DO [facility] [place] F8SE [id number] 04/08/2013 08:28:00 2012 23:59:59 CLS Outpatient Derek Mayer DO [facility]
--- OUTSIDE RECORDS SUMMARY | 2016-09-13 05:38 | XMS REPORT | Continuity of Care Document ---
Author Author [facility] Organization [facility] Address Unknown Phone Unavailable Support Name Relationship Address Phone KAJAL SANTIAGO MD Caregiver [facility] [address] [place] [address] Unavailable IRINA BORGES II, MD Caregiver [address] [place] [phone] JASWINDER ESCOBEDO MD Caregiver [address] [place] [phone] LYNDA MERCADO Next Of Kin [address] [id number] Insurance Providers Payer Name Policy Number Subscriber Name Relationship Medicare [id number] Jose Alejandro Mercado 19 Self Advance Directives [...] F (96.8 - 99.1) Temperature (Calculated Celsius) 36.93234 degrees C (36.0 - 37.3) Temperature Source [...] Has specimen been collected/obtained? Y Urine Specific [place] May 31, 2014 11:40am <=1.005 L - [...] 04, 2012 11:37am LAB TEST FORM REQUEST [id number] - Turbidity June 04, 2014 4:49am < [...] 9:53am Name: JOSE ALEJANDRO MERCADO Unit #: [id number] : [id number] Sex: F Loc / Svc: MED DOS: 05/28/14 Signed Report #: [id number] DIAGNOSTIC IMAGING REPORT TYPE OF EXAM: CHEST [...] procedures. Encounters Encounter Location Date/Time Discharged Inpatient [facility] 05/28/14 11:21am Recent Diagnosis Influenza B Addisons disease Hypoxemia Dehydration Chest pain Diabetes Hypertension
[2016-09-13 05:39] LABS: ALBUMIN 3.3 G/DL (3.5-5.0); ALBUMIN/GLOBULIN RATIO 1.4 RATIO (1.1-2.2); ALKALINE PHOSPHATASE 79 U/L (38-126); ALT (SGPT) 65 U/L (9-52); ANION GAP 22 MEQ/L (5-15); AST (SGOT) 83 U/L (14-36); BUN/CREATININE RATIO 23 RATIO (6-26); CALCIUM 8.6 MG/DL (8.4-10.2); CHLORIDE 98 MEQ/L (98-107); CO2 - CARBON DIOXIDE 19 MEQ/L (22-30); CREATININE 0.4 MG/DL (0.7-1.2); GLOMERULAR FILTRATION RATE 163; GLUCOSE 181 MG/DL (65-110); SODIUM 139 MEQ/L (134-144); TOTAL PROTEIN 5.7 G/DL (6.3-8.2)
[2016-09-13 05:48] LABS: POTASSIUM 2.7 MEQ/L (3.6-5)
[2016-09-13 06:21] LABS: BLOOD, URINE TRACE-INTACT (NEGATIVE); COLOR,URINE YELLOW (YELLOW); LEUKOCYTE ESTERASE ,URINE 1+ (NEGATIVE); NITRITE,URINE NEGATIVE (NEGATIVE)
--- NOTE | 2016-09-13 06:22 | NUR ---
REPORT REPORT GIVEN TO MG CAMPO
[2016-09-13] MEDS ORDERED: POTASSIUM CHLORIDE 10 MEQ in WATER FOR INJECTION 100 ML IV SCH ×2 (06:30→07:15)
[2016-09-13] MEDS ORDERED: NORMAL SALINE 500 ML IV ONE ×2 (06:30→09:45)
[2016-09-13 06:50] LABS: BACTERIA,URINE 2+ (NEGATIVE); RBC,URINE NONE SEEN /HPF (0-3); WBC,URINE 20-30 /HPF (0-5)
[2016-09-13 06:51] LABS: MUCUS,URINE PRESENT; YEAST,URINE 3+ (NEGATIVE)
--- NOTE | 2016-09-13 07:00 | NUR ---
DR ARROYO IN
[2016-09-13] MEDS ORDERED: FENTANYL 100mcg/2ml INJECTION IV ONE (07:15)
--- NOTE | 2016-09-13 07:43 | NUR ---
REPORT TO GONZALEZ HOLLIDAY AT [facility]. PT ROOM IS NOT VACATED & PT CANNOT BE TRANSFERRED UNTIL BED AVAILABLE
--- NOTE | 2016-09-13 07:55 | DI ---
Indication: ITS.REASON: Sharp Left-sided chest pain radiating to the left arm PROCEDURE: CHEST 1 VIEW: Encounter: Initial Comparison: August 24, 2016 FINDINGS: The lungs are clear. There is no abnormal airspace opacity, pleural effusion or pneumothorax identified. The heart size, pulmonary vasculature and mediastinum are within normal limits. No significant skeletal abnormality is seen. IMPRESSION: No acute cardiopulmonary abnormality. .
[2016-09-13] MEDS ORDERED: ASPIRIN 81 MG CHEWABLE TABLET PO SCH (09:00)
--- NOTE | 2016-09-13 09:00 | NUR ---
ASSESSMENT PT RESTS. VS STABLE
--- NOTE | 2016-09-13 09:45 | NUR ---
IV 20 ga 1 1/4" catheter to R forearm using Ultrasound. Able to aspirate and flush without difficulty.
--- NOTE | 2016-09-13 09:57 | NUR ---
[facility] CONTACTED CARDIOTHORACIC ICU STILL DOES NOT HAVE A BED AVAILABLE
--- NOTE | 2016-09-13 11:00 | NUR ---
ASSESS PT CONTINUES TO REST QUIETLY. REPOSITIONED FOR COMFORT. VS STABLE. MONITOR UNCHANGED.
[2016-09-13 12:15] VITALS: BP 123/66; PULSE 92; RESP 23; TEMP 98.2; O2SAT 94
--- NOTE | 2016-09-13 12:15 | NUR ---
TRANSFER PER [facility] TO [facility].
== END 2016-09-13 12:15 | disposition short-term general hospital (02) ==
LOC: ED 04:37
DX: R07.89 Other chest pain (principal); R94.31 Abnormal electrocardiogram [ECG] [EKG]; I10 Essential (primary) hypertension; Z79.4 Long term (current) use of insulin; Z79.899 Other long term (current) drug therapy; Z87.891 Personal history of nicotine dependence
CPT/HCPCS: 36415; 36416; 51701; 71010; 80053; 81001; 83605; 84484; 85025; 87086; 93005; 96361; 96365; 96366; 96375; 96376; 99285; A9270; J2405; J3010; J3480